=== PATIENT | female | born 1935 | race Caucasian/White ===

== ENCOUNTER 2016-11-01 18:53 | Emergency (ER) | payer OTHER ==
[2016-11-01] MEDS ORDERED: HYDROGEN PEROXIDE 3% ONE (18:59)
--- NOTE | 2016-11-01 19:04 | DR.GENAD ---
HPI - HPI Comment HPI Comment: PATIENT FELL AT HOME AND SUSTAIN LAC TO SCALP AND FOREHEAD. TD UTD. - Complaint/Symptoms Chief Complaint Doctors Comments: FELL, LT SCALP LAC AND RT FOREHEAD LACERATION. NO LOC. - Nurses notes reviewed Nurses Notes Review: Yes - Source History Provided: Patient, Family Member - Mode of Arrival Mode of Arrival: Ambulatory - Timing Came on: Suddenly - Duration Duration: Constant Duration: Hours - Severity Severity: Moderate PMH - PMH Past Medical History: Anxiety, Depression, Dyslipidemia, GERD, Hypertension, Hypothyroidism, Kidney Stones Past Surgical History: Yes Surgical History: Hysterectomy - Family History Family Medical History: Diabetes Mellitus, Cancer, [place], Coronary Artery Disease, Hypertension - Social History Do you use any recreational Drugs:: No ROS - Review of Systems Constitutional: No Symptoms Reported Eyes: No Symptoms Reported ENTM: No Symptoms Reported Respiratoy: No Symptoms Reported Cardiovascular: No Symptoms Reported Gastrointestinal/Abdominal: No Symptoms Reported Genitourinary: No Symptoms Reported Neurological: No Symptoms Reported Musculoskeletal: No Symptoms Reported Integumentary: Wound (RT FOREHEAD 3CM LAC AND LT SCALP, 2CM LAC.) Hematologic/Lymphatic: No Symptoms Reported Endocrine: No Symptoms Reported All Other Systems: Reviewed and Negative PE - Vital Signs Vitals: Temperature 98.6 F Pulse Rate [Left Brachial] 89 Pulse Rate 95 Respiratory Rate 18 Blood Pressure [Right Arm] 157/70 Blood Pressure [Left Arm] 143/66 Blood Pressure 172/74 O2 Sat by Pulse Oximetry 95 - General Limitations: No Limitations General Appearance: Alert - Head Head Exam: Atraumatic (SCALP LAC RT PARIETAL.), Other (RT FOREHEAD LACERATION, ) - Eyes Eye exam: Normal Appearance - ENT ENT Exam: Normal Exam External Ear Exam: Normal External Inspection TM/Canal Exam: Bilateral Normal Nose Exam: Normal Nose Exam Mouth Exam: Normal Inspection Throat Exam: Normal Inspection - Neck Neck Exam: Trachea Midline - Chest Chest Inspection: Symmetric Chest Wall Rise - Respiratory Respiratory Exam: Normal Lung Sounds Bilat Respiratory Exam: Bilateral Clear to Auscultation - Cardiovascular Cardiovascular Exam: Regular Rate, Normal Rhythm, Normal Heart Sounds - Abdominal Exam Abdominal Exam: Normal Bowel Sounds, Soft. negative: Tenderness - Extremities Extremities Exam: Normal Inspection - Back Back Exam: Normal Inspection - Neurologic Neurological Exam: Alert, Oriented X3 - Psychiatric Psychiatric Exam: Normal Affect, Normal Mood - Skin Skin Exam: Normal Color MDM - Additional Information Additional Information Obtained From: Family - Differential Diagnosis Differential Diagnosis: SCALP LACERATION, RIGHT FOREHEAD LACERATION Course - Treatment Treatment: SEE ORDERS - Education/Counseling Education/Counseling: Patient, Family, Education Educated On: Treatment, Diagnosis, Needs for Follow Up Procedures - Laceration/Wound Repair Right Face Wound Length (cm): 3 Wound's Depth, Shape: Linear Wound Explored: clean Betadine Prep?: Yes Anesthesia: 1% Lidocaine Volume Anesthetic (ccs): 3 Wound Debrided: minimal Wound Repaired With: sutures Suture Size/Type: 5:0, [place] Number of Sutures: 7 Layer Closure?: No Sterile Dressing Applied?: Yes Splint Applied?: No Sling Applied?: No Left Head Wound Length (cm): 2 Wound's Depth, Shape: Linear Wound Explored: clean Anesthesia: 1% Lidocaine Volume Anesthetic (ccs): 3 Wound Debrided: minimal Wound Repaired With: sutures Suture Size/Type: 4:0, Ethilion Number of Sutures: 7 Layer Closure?: No Sterile Dressing Applied?: No Splint Applied?: No Sling Applied?: No - Diagnosis Discharge Problem: Forehead laceration Qualifiers: Encounter type: initial encounter Qualified Code(s): S01.81XA - Laceration without foreign body of other part of head, initial encounter Scalp laceration Qualifiers: Encounter type: initial encounter Qualified Code(s): S01.01XA - Laceration without foreign body of scalp, initial encounter - Discharge Plan Disposition: HOME, SELF-CARE Condition: Stable - Follow ups/Referrals Follow ups/Referrals: Mitchel Ventura [Primary Care Provider] - 3 days - Instructions Instructions: Laceration Care, Adult Additional Instructions: RETURN TO ED IF WORSE. SUTURE OUT IN 10 DAYS.
[2016-11-01 19:09] VITALS: BMI 28.3
[2016-11-01] MEDS ORDERED: NEOSPORIN OINT ONE (19:52)
[2016-11-01 19:58] VITALS: BP 157/70
== END 2016-11-01 20:01 | disposition home or self-care (01) ==
LOC: ER 18:59
PROC: 0WQ00ZZ Repair Head, Open Approach (ICD-10-PCS; principal; 2016-11-01)
PROC: 0WQ20ZZ Repair Face, Open Approach (ICD-10-PCS; principal; 2016-11-01)
DX: S01.81XA Laceration without foreign body of other part of head, initial encounter (principal); S01.01XA Laceration without foreign body of scalp, initial encounter; W19.XXXA Unspecified fall, initial encounter; Y92.009 Unspecified place in unspecified non-institutional (private) residence as the place of occurrence of the external cause
CPT/HCPCS: 12001; 12013; 99282

== ENCOUNTER 2017-04-29 02:24 | Emergency (ER) | payer OTHER ==
[2017-04-29 02:42] VITALS: BMI 27.8
--- NOTE | 2017-04-29 03:08 | DR.GENAD ---
HPI - PCP Primary Care Physician: PETE - HPI Comment HPI Comment: HISTORY BELOW. - Complaint/Symptoms Chief Complaint Doctors Comments: FELL AT HOME. LACERATION BACK OF HEAD, NECK PAIN, LEFT SHOULDER PAIN, PELVIC PAIN AND LLE PAIN. NO LOC. PATIENT SAID LAC IN HEAD WAD BLEEDING AT HOME. Chief Complaint:: PATIENT WAS TRYING TO WALK TO BATHROOM, NEXT THING SHE WAS ON THE FLOOR. 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, Hysterectomy, Ortho Surgery Past Surgical History Comment: CATARACT - Family History History of Family Medical Conditions: Yes Family Medical History: Diabetes Mellitus, Cancer, [place], Coronary Artery Disease, Hypertension - Social History Does patient currently use any type of tobacco product: No Have you used tobacco products in the last 12 months: No Type of Tobacco Use: None Does any household member use tobacco: No Alcohol Use: None Do you use any recreational Drugs:: No Lives With: Alone Lives Where: Home - infectious screening In the last 2 months have you had wt loss of >10#?: NO Have you had fever, night sweats or hemotysis?: No Have you traveled outside the country in the last 6 months?: No Isolation: Standard ROS - Review of Systems Constitutional: No Symptoms Reported Eyes: No Symptoms Reported ENTM: No Symptoms Reported Respiratoy: No Symptoms Reported Cardiovascular: No Symptoms Reported Gastrointestinal/Abdominal: No Symptoms Reported Genitourinary: No Symptoms Reported Neurological: Headache, Problems Walking Musculoskeletal: Neck Pain, Shoulder, Pelvis, Leg, Knee Integumentary: Other (3CM LAC BACK OF HEAD.) Hematologic/Lymphatic: No Symptoms Reported Endocrine: No Symptoms Reported All Other Systems: Reviewed and Negative PE - Vital Signs Vitals: Temperature 98.2 F Pulse Rate [Right] 72 Pulse Rate 75 Respiratory Rate 20 Blood Pressure [Right Arm] 143/65 Blood Pressure [Left Arm] 143/66 Blood Pressure 157/69 O2 Sat by Pulse Oximetry 96 - General Limitations: No Limitations General Appearance: Alert - Head Head Exam: Other (3CM LAC BACK OF HEAD.) - Eyes Eye exam: Normal Appearance - ENT ENT Exam: Normal External Ear Exam External Ear Exam: Normal External Inspection TM/Canal Exam: Bilateral Normal Nose Exam: Normal Nose Exam Mouth Exam: Normal Inspection Throat Exam: Normal Inspection - Neck Neck Exam: Tenderness (LOWER POSTERIOT NECK) - Chest Chest Inspection: Symmetric Chest Wall Rise - Respiratory Respiratory Exam: Normal Lung Sounds Bilat Respiratory Exam: Bilateral Clear to Auscultation - Cardiovascular Cardiovascular Exam: Regular Rate, Normal Rhythm, Normal Heart Sounds - Extremities Extremities Exam: Normal Inspection - Back Back Exam: Normal Inspection - Neurologic Neurological Exam: Alert, Oriented X3 - Psychiatric Psychiatric Exam: Normal Affect, Normal Mood - Skin Skin Exam: Normal Color MDM - Additional Information Additional Information Obtained From: Family - Differential Diagnosis Differential Diagnosis: MULTIPLE CONTUSION, SCALP LACERATION, LT SHOULDER SPRAIN , FRACTURE, PELVIC Course - Treatment Treatment: SEE ORDERS - Education/Counseling Education/Counseling: Patient, Family, Education Educated On: Treatment, Diagnosis, Needs for Follow Up ROR - XRAY XRAY Interpreted by: Radiologist XRAY Findings: REPORT DISCUSS WITH PATIENT AND HER FAMILY. Procedures - Laceration/Wound Repair Head Progress: 6 HARMAN APPLIED TO BACK OF SCALP. - Diagnosis Discharge Problem: Neck pain, Pain in pelvis, Acute pain of left lower extremity Scalp laceration Qualifiers: Encounter type: initial encounter Qualified Code(s): S01.01XA - Laceration without foreign body of scalp, initial encounter Sprain of left shoulder Qualifiers: Encounter type: initial encounter Shoulder sprain type: unspecified sprain Qualified Code(s): S43.402A - Unspecified sprain of left shoulder joint, initial encounter Left knee sprain Qualifiers: Encounter type: initial encounter Involved ligament of knee: unspecified ligament Qualified Code(s): S83.92XA - Sprain of unspecified site of left knee, initial encounter - Discharge Plan Disposition: 01 HOME, SELF-CARE Condition: Stable - Follow ups/Referrals Follow ups/Referrals: Mitchel Ventura [Primary Care Provider] - 3 days - Instructions Instructions: Shoulder Sprain, Musculoskeletal Pain, Laceration Care, Adult, [id number], Knee Pain, [id number] Additional Instructions: RETURN TO ED IF WORSE. HARMAN OUT IN 10 DAYS.
--- NOTE | 2017-04-29 04:00 | CT ---
CT head without contrast Indication: Fall with hematoma to the back of the head Technique: Helical CT images of the brain were obtained without IV contrast. Reformatted images in th e coronal and sagittal planes were also generated for review. Comparison: None Findings: There is no intracranial hemorrhage, focal or generalized edema, extra-axial collection or midline shift. There is mild age-appropriate cerebral atrophy with proportional compensatory ventricu lar and sulcal enlargement. Mild periventricular and subcortical white matter microangiopathic diseas e is also noted. The visualized paranasal sinuses and mastoid air cells are clear. There is a small h ematoma of the left posterior parietal scalp. No underlying calvarial fracture is identified. Impression: No acute intracranial abnormality. Reported By:
--- NOTE | 2017-04-29 04:01 | CT ---
CT cervical spine without contrast Indication: Fall with neck pain Technique: Helical CT images of the cervical spine were obtained without IV contrast. Reformatted tari ges in the coronal and sagittal planes were also generated for review. Comparison: None Findings: Vertebral body heights and alignment are normal. No acute fracture or subluxation is identi fied. There is mild multilevel degenerative disc disease and facet arthropathy, most significant at C 5-C6 and C6-C7. There is no prevertebral soft tissue swelling. Visualized upper lungs are clear. Impression: No CT evidence of acute cervical spine injury. Reported By:
--- NOTE | 2017-04-29 04:09 | CT ---
CT pelvis without contrast Indication: Fall with left hip pain Technique: Helical CT images of the pelvis were obtained without IV contrast. Reformatted images in t he coronal and sagittal planes were also generated for review. Comparison: None Findings: The bilateral hips, SI joints, pubic symphysis and imaged lower lumbar spine are intact. No acute fracture or malalignment is identified. Mild degenerative changes of the lower lumbar spine an d pubic symphysis are noted. The bilateral hip joint spaces are well maintained. There is moderate diverticulosis of the sigmoid colon without evidence of acute inflammation. There i s mild calcification of the bilateral iliofemoral systems without aneurysm. A small fat containing le ft inguinal hernia is noted. The remaining unenhanced imaged contents of the lower abdomen and pelvis are grossly unremarkable. Impression: No acute fracture or malalignment. Please refer to above for additional incidental findings. Reported By:
[2017-04-29] MEDS ORDERED: HYDROGEN PEROXIDE 3% ONE (04:10)
[2017-04-29] MEDS ORDERED: HYDROGEN PEROXIDE 3% EXT ONE (04:10)
[2017-04-29] MEDS ORDERED: XYLOCAINE 1 % (PLAIN) ONE (04:11)
--- NOTE | 2017-04-29 04:29 | RAD ---
Left shoulder, three views Indication: Fall with shoulder pain Comparison: 11/19/2013 Findings: No acute fracture or malalignment is identified. There are mild degenerative changes of the glenohumeral joint. The acromiohumeral interval is within normal limits. Soft tissues are unremarkab le. Impression: No acute radiographic abnormality of the left shoulder. Reported By:
--- NOTE | 2017-04-29 04:29 | RAD ---
Left femur, four views Indication: Fall with leg pain Comparison: None Findings: No acute fracture or malalignment of the left femur is identified. Mild degenerative change s of the knee are noted. Surrounding soft tissues are unremarkable. Impression: No acute radiographic abnormality of the left femur. Reported By:
[2017-04-29 04:59] VITALS: BP 143/65
== END 2017-04-29 04:55 | disposition home or self-care (01) ==
LOC: ER 02:24
PROC: 0HQ0XZZ Repair Scalp Skin, External Approach (ICD-10-PCS; principal; 2017-04-29)
DX: S01.01XA Laceration without foreign body of scalp, initial encounter (principal); W19.XXXA Unspecified fall, initial encounter; Y92.009 Unspecified place in unspecified non-institutional (private) residence as the place of occurrence of the external cause; S30.0XXA Contusion of lower back and pelvis, initial encounter; S40.012A Contusion of left shoulder, initial encounter; S80.12XA Contusion of left lower leg, initial encounter; S83.92XA Sprain of unspecified site of left knee, initial encounter; M54.2 Cervicalgia
CPT/HCPCS: 12001; 70450; 72125; 72192; 73030; 73552; 99283; J2001

== ENCOUNTER → 2017-10-18 | Outpatient (CLI) | payer OTHER ==
--- NOTE | 2017-10-18 14:09 | CT ---
HISTORY: Fall Study: CT brain without contrast Comparison: April 29, 2017 Technique: Multiple axial images of the brain were obtained from the skull base to the vertex without administra tion of IV contrast. Findings: No acute intraparenchymal hemorrhage or mass can be identified. No extra-axial fluid collections are seen. No alteration in the attenuation of the brain parenchyma can be identified to suggest acute o r subacute ischemic change. The ventricles, sulci, and cisterns demonstrate an appearance consistent with a [id number] degree of generalized atrophy. Patchy areas decreased attenuation within the periventricular, subcortical, and subinsular white matter suggest changes of chronic small vessel is chemic disease. Remote lacunar infarcts are seen within the region of the right castañeda radiata and baumann binsular white matter. Soft tissue swelling/hematoma is seen overlying the right frontal calvarium. C orrelate clinically. If symptoms or clinical concern persist recommend continued follow-up for furthe r evaluation. IMPRESSION: No acute intracranial process can be identified. Mild to moderate generalized atrophy findings consistent with changes of chronic small vessel ischemi c disease. Soft tissue swelling/hematoma overlying the right frontal calvarium. Correlate clinically. Reported By:
== END ==
LOC: RAD 13:10
PROVIDERS: ATTEND Internal Medicine
DX: S09.90XA Unspecified injury of head, initial encounter (principal); X58.XXXA Exposure to other specified factors, initial encounter; R60.0 Localized edema
CPT/HCPCS: 70450

== ENCOUNTER 2018-04-07 10:01 | Observation (INO) ==
[2018-04-07 10:04] VITALS: BMI 28.3
[2018-04-07 10:27] LABS: BASOPHILS # (AUTO) 0.1 X10^3/uL (0.0-0.1); BASOPHILS % (AUTO) 1.4 % (0.2-1.0); EOSINOPHILS # (AUTO) 0.4 x10^3/uL (0.0-0.2); EOSINOPHILS % (AUTO) 4.8 % (0.9-2.9); HEMATOCRIT 34.2 % (36.0-47.0); HEMOGLOBIN 11.7 g/dL (12.0-16.0); LYMPHOCYTES # (AUTO) 3.1 X10^3/uL (1.3-2.9); LYMPHOCYTES % (AUTO) 42.2 % (21.0-51.0); MEAN CORPUSCULAR HEMOGLOBIN 31.1 pg (27.0-34.0); MEAN CORPUSCULAR HGB CONC 34.2 g/dL (33.0-35.0); MEAN CORPUSCULAR VOLUME 90.9 fL (80.0-100.0); MEAN PLATELET VOLUME 7.2 fL (7.4-11.0); MONOCYTES # (AUTO) 0.5 x10^3/uL (0.3-0.8); MONOCYTES % (AUTO) 6.5 % (0.0-13.0); NEUTROPHILS # (AUTO) 3.3 x10^3/uL (2.2-4.8); NEUTROPHILS % (AUTO) 45.1 % (42.0-75.0); PLATELET COUNT 288 X10^3/uL (150.0-450.0); RED BLOOD COUNT 3.76 X10^6/uL (3.5-5.4); RED CELL DISTRIBUTION WIDTH 13.3 % (11.6-16.5); WHITE BLOOD COUNT 7.4 X10^3/uL (3.6-10.0)
[2018-04-07 10:42] LABS: BLOOD UREA NITROGEN 23 mg/dL (7-18); CALCIUM 8.8 mg/dL (8.5-10.1); CARBON DIOXIDE 28.6 mmol/L (21-32); CHLORIDE 103 mmol/L (98-107); COR NA(FOR HYPERGLY) 139 mmol/L (136-145); CREATININE 1.15 mg/dL (0.55-1.02); SODIUM 138 mmol/L (136-145); TROPONIN I < 0.02 ng/mL (0-1.5); eGFR NON BLACK RACES 48 (>60)
[2018-04-07 10:46] LABS: ALANINE AMINOTRANSFERASE 24 Units/L (12-78); ALBUMIN 3.7 g/dL (3.4-5.0); ALKALINE PHOSPHATASE 55 Units/L (46-116); ASPARTATE AMINO TRANSFERASE 16 Units/L (15-37); CHOL/HDL RATIO 4.1 (0.0-5.0); CHOLESTEROL 148 mg/dL (0-200); CKMB % 1.4 % (<4); CREATINE KINASE 139 Units/L (26-192); HDL CHOLESTEROL 36 mg/dL (40-60); TOTAL PROTEIN 7.5 g/dL (6.4-8.2); TRIGLYCERIDES 223 mg/dL (0-150)
--- NOTE | 2018-04-07 10:48 | DR.GENAD ---
HPI Time Seen Time Seen by Provider: 04/07/18 10:44 PCP Primary Care Physician: PETE Complaint/Symptoms Chief Complaint Doctors Comments: Patient admits to not being able to speak suddenly while going to [employer]. This lasted about 10 minutes. Upon arrival from [place] speech normal. 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 BEGAN HAVING SLURRED SPEECH. UPON ARRIVAL TO ER, PT. STILL WITH SLURRED SPEECH BUT IT HAS IMPROVED SINCE ONSET PER GRANDSON. BILATERAL AND EQUAL HANDGRIPS. PT. HAS AN UN STEADY GAIT. Source History Provided: Patient and Family Member Mode of Arrival Mode of Arrival: Wheelchair Timing Onset of Chief Complaint: 04/07/18 PMH PMH Past Medical History: Yes Past Medical History: Anxiety, Depression, Dyslipidemia, GERD, Hypertension, Hypothyroidism, Kidney Stones and [place] Past Surgical History: Yes Surgical History: UPPER TRIMMER Surgery, Hysterectomy and Ortho Surgery Family History History of Family Medical Conditions: Yes Family Medical History: Diabetes Mellitus, Cancer, [place], Coronary Artery Disease and Hypertension Social History Does patient currently use any type of tobacco product: No Have you used tobacco products in the last 12 months: No Type of Tobacco Use: None Does any household member use tobacco: No Alcohol Use: None Do you use any recreational Drugs:: No Lives With: Alone Lives Where: Home infectious screening In the last 2 months have you had wt loss of >10#?: NO Have you had fever, night sweats or hemotysis?: No Have you traveled outside the country in the last 6 months?: No Isolation: Standard PE Vital Signs Vitals: Temperature 97.8 F Pulse Rate [Apical] 69 Pulse Rate 75 Respiratory Rate 20 Blood Pressure [Right Arm] 131/58 Blood Pressure [Left Arm] 135/64 Blood Pressure 122/79 O2 Sat by Pulse Oximetry 98 General Limitations: No Limitations General Appearance: Alert and In No Apparent Distress Head Head Exam: Normal Inspection, Atraumatic and Normocephalic ENT ENT Exam: Normal Exam, Normal Oropharynx and Normal External Ear Exam External Ear Exam: Normal External Inspection TM/Canal Exam: Bilateral: Normal Nose Exam: Normal Nose Exam and Sinus Tenderness Neck Neck Exam: Normal Inspection and Full ROM Chest Chest Inspection: Normal Inspection Respiratory Respiratory Exam: Normal Lung Sounds Bilat Respiratory Exam: Bilateral: Clear to Auscultation Cardiovascular Cardiovascular Exam: Regular Rate and Normal Rhythm Abdominal Exam Abdominal Exam: Normal Bowel Sounds and Soft Abdominal Tenderness: RUQ, RLQ and LUQ Extremities Extremities Exam: Normal Inspection and Full ROM Back Back Exam: Normal Inspection and Full ROM Neurologic Neurological Exam: Alert, Oriented X3 and CN II-XII Intact Psychiatric Psychiatric Exam: Normal Affect Skin Skin Exam: Warm, Dry and Intact COURSE Consultation Called: 11:00 Consultation Comments: Dr. Castañeda agreed to admit for observation and further evaluation ROR Labs Reviewed Laboratory Results Reviewed?: Yes Result Diagrams: 04/08/18 05:00 04/08/18 05:00 Laboratory: WBC 7.2 X10^3/uL (3.6-10.0) 04/08/18 05:00 RBC 3.76 X10^6/uL (3.5-5.4) 04/08/18 05:00 Hgb 11.7 g/dL (12.0-16.0) L 04/08/18 05:00 Hct 34.3 % (36.0-47.0) L 04/08/18 05:00 MCV 91.2 fL (80.0-100.0) 04/08/18 05:00 MCH 31.0 pg (27.0-34.0) 04/08/18 05:00 MCHC 34.0 g/dL (33.0-35.0) 04/08/18 05:00 RDW 13.5 % (11.6-16.5) 04/08/18 05:00 Plt Count 269 X10^3/uL (150.0-450.0) 04/08/18 05:00 MPV 7.1 fL (7.4-11.0) L 04/08/18 05:00 Neut % (Auto) 42.2 % (42.0-75.0) 04/08/18 05:00 Lymph % (Auto) 44.3 % (21.0-51.0) 04/08/18 05:00 Stanley % (Auto) 7.4 % (0.0-13.0) 04/08/18 05:00 Eos % (Auto) 4.9 % (0.9-2.9) H 04/08/18 05:00 Baso % (Auto) 1.2 % (0.2-1.0) H 04/08/18 05:00 Neut # (Auto) 3.0 x10^3/uL (2.2-4.8) 04/08/18 05:00 Lymph # (Auto) 3.2 X10^3/uL (1.3-2.9) H 04/08/18 05:00 Stanley # (Auto) 0.5 x10^3/uL (0.3-0.8) 04/08/18 05:00 Eos # (Auto) 0.4 x10^3/uL (0.0-0.2) H 04/08/18 05:00 Baso # (Auto) 0.1 X10^3/uL (0.0-0.1) 04/08/18 05:00 Absolute Nucleated RBC 0.0 /100WBC 04/08/18 05:00 INR Target Range - 04/07/18 10:17 INR 0.95 (0.8-1.3) 04/07/18 10:17 APTT 26.7 SECONDS (22.9-36.5) 04/07/18 10:17 PTT Comment - 04/07/18 10:17 Fibrinogen 338 mg/dL (239-489) 04/07/18 10:17 Sodium 141 mmol/L (136-145) 04/08/18 05:00 Corrected Sodium TNP 04/08/18 05:00 Potassium 3.8 mmol/L (3.5-5.1) 04/08/18 05:00 Chloride 105 mmol/L (98-107) 04/08/18 05:00 Carbon Dioxide 28.5 mmol/L (21-32) 04/08/18 05:00 BUN 17 mg/dL (7-18) 04/08/18 05:00 Creatinine 0.96 mg/dL (0.55-1.02) 04/08/18 05:00 Est GFR (MDRD) Af Amer > 60 (>60) 04/08/18 05:00 Est GFR (MDRD) Non-Af 59 (>60) 04/08/18 05:00 Glucose 93 mg/dL (65-99) 04/08/18 05:00 Calcium 8.5 mg/dL (8.5-10.1) 04/08/18 05:00 Corrected Calcium TNP 04/08/18 05:00 Total Bilirubin 0.30 mg/dL (0.2-1.0) 04/08/18 05:00 AST 15 Units/L (15-37) 04/08/18 05:00 ALT 22 Units/L (12-78) 04/08/18 05:00 Alkaline Phosphatase 52 Units/L (46-116) 04/08/18 05:00 Creatine Kinase 132 Units/L (26-192) 04/08/18 05:00 CK-MB (CK-2) 1.6 ng/mL (0-4.0) 04/08/18 05:00 CK/CKMB % Calc 1.2 % (<4) 04/08/18 05:00 Troponin I < 0.02 ng/mL (0-1.5) 04/08/18 05:00 Total Protein 7.5 g/dL (6.4-8.2) 04/08/18 05:00 Albumin 3.6 g/dL (3.4-5.0) 04/08/18 05:00 Globulin 3.9 g/dL (2.5-4.5) 04/08/18 05:00 Albumin/Globulin Ratio 0.9 Ratio (1.1-2.1) L 04/08/18 05:00 Triglycerides 223 mg/dL (0-150) H 04/07/18 10:17 Cholesterol 148 mg/dL (0-200) 04/07/18 10:17 LDL Cholesterol, Calc 67 mg/dL (0-100) 04/07/18 10:17 HDL Cholesterol 36 mg/dL (40-60) L 04/07/18 10:17 Cholesterol/HDL Ratio 4.1 (0.0-5.0) 04/07/18 10:17 Other Results Comments: No acute intracranial pathology. If clinically concerned for acute ischemia/infarction, MRI brain is more sensitive. Diagnosis Discharge Problem: TIA (transient ischemic attack)
[2018-04-07] MEDS: NS 1000 ML 1,000 ML IV SCH (12:53)
[2018-04-07 16:53] LABS: CKMB % 1.6 % (<4); CREATINE KINASE 134 Units/L (26-192); CREATINE KINASE MB 2.1 ng/mL (0-4.0); TROPONIN I < 0.02 ng/mL (0-1.5)
[2018-04-07] MEDS: ZyrTEC TAB 10 MG PO SCH (20:27)
[2018-04-07] MEDS: GLYBURIDE METFORMIN PO SCH (20:38)
[2018-04-07] MEDS ORDERED: LIPITOR TAB 20 MG PO SCH (21:00)
[2018-04-07 22:40] LABS: CKMB % 1.3 % (<4); CREATINE KINASE 125 Units/L (26-192); CREATINE KINASE MB 1.6 ng/mL (0-4.0); TROPONIN I < 0.02 ng/mL (0-1.5)
[2018-04-08] MEDS: NS 1000 ML 1,000 ML IV SCH ×2 (01:57→16:04)
[2018-04-08 05:19] LABS: BASOPHILS # (AUTO) 0.1 X10^3/uL (0.0-0.1); BASOPHILS % (AUTO) 1.2 % (0.2-1.0); EOSINOPHILS # (AUTO) 0.4 x10^3/uL (0.0-0.2); EOSINOPHILS % (AUTO) 4.9 % (0.9-2.9); HEMATOCRIT 34.3 % (36.0-47.0); HEMOGLOBIN 11.7 g/dL (12.0-16.0); LYMPHOCYTES # (AUTO) 3.2 X10^3/uL (1.3-2.9); LYMPHOCYTES % (AUTO) 44.3 % (21.0-51.0); MEAN CORPUSCULAR VOLUME 91.2 fL (80.0-100.0); MEAN PLATELET VOLUME 7.1 fL (7.4-11.0); MONOCYTES # (AUTO) 0.5 x10^3/uL (0.3-0.8); MONOCYTES % (AUTO) 7.4 % (0.0-13.0); NEUTROPHILS % (AUTO) 42.2 % (42.0-75.0); PLATELET COUNT 269 X10^3/uL (150.0-450.0); RED BLOOD COUNT 3.76 X10^6/uL (3.5-5.4); RED CELL DISTRIBUTION WIDTH 13.5 % (11.6-16.5); WHITE BLOOD COUNT 7.2 X10^3/uL (3.6-10.0)
[2018-04-08 05:38] LABS: ALANINE AMINOTRANSFERASE 22 Units/L (12-78); ALBUMIN 3.6 g/dL (3.4-5.0); ALKALINE PHOSPHATASE 52 Units/L (46-116); ASPARTATE AMINO TRANSFERASE 15 Units/L (15-37); BLOOD UREA NITROGEN 17 mg/dL (7-18); CALCIUM 8.5 mg/dL (8.5-10.1); CARBON DIOXIDE 28.5 mmol/L (21-32); CHLORIDE 105 mmol/L (98-107); CKMB % 1.2 % (<4); CREATINE KINASE 132 Units/L (26-192); CREATINE KINASE MB 1.6 ng/mL (0-4.0); CREATININE 0.96 mg/dL (0.55-1.02); SODIUM 141 mmol/L (136-145); TOTAL PROTEIN 7.5 g/dL (6.4-8.2); TROPONIN I < 0.02 ng/mL (0-1.5); eGFR NON BLACK RACES 59 (>60)
[2018-04-08] MEDS ORDERED: [UNRECOGNIZED DRUG - OTHER] PO SCH (09:00)
[2018-04-08] MEDS: EFFEXOR XR 75 MG CAP PO SCH (09:01)
[2018-04-08] MEDS: SINGULAIR TAB 10 MG PO SCH ×2 (09:01→09:03)
[2018-04-08] MEDS: HYZAAR 50/12.5 MG PO SCH ×2 (09:01→09:03)
[2018-04-08] MEDS: NexIUM PO SCH (09:01)
[2018-04-08] MEDS: TAB-A-VITE PO SCH (09:01)
[2018-04-08] MEDS: PROGESTERONE MICRONIZED 200 MG PO SCH (09:02)
[2018-04-08] MEDS: PLAVIX PO SCH (09:02)
--- NOTE | 2018-04-08 09:32 | DR.H&P ---
H&P - History & Physical for Day of: H&P Date: 04/07/18 - Chief Complaint Chief Complaint: slurred speech - History of Present Illness History of Present Illness: 82 W[facility] ER ADMISSION AFTER PRESENTING WITH CO NEW ONSET OF SLURRED SPEECH. PTS DAUGHTER STATES SHE SPOKE WITH PATIENT AT 7:30 AM AND SHE WAS TALKING NORMAL. PT WAS WITH GRANDSON AROUND 9:30 AND HAD SUDDEN ONSET OF SLURRED SPEECH. PT CONTINUES WITH "WORDS NOT COMING OUT RIGHT" AFTER ARRIVAL TO ED. PT HAS PMH OF HTN, OA, HYPERLIPIDEMIA, GERD, HYPOTHYROIDISM. PT STATES HAS NO HISTORY OF CVD OR CAD. CT HEAD IN ER WITHOUT ACUTE FINDINGS. 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, Hysterectomy, Ortho Surgery Additional Surgical History: Hemorrhoidectomy X 2, Tubal, Spinal Stimulator, Carpal Tunnel - Family History Family Medical History: Diabetes Mellitus, Cancer, [place], Coronary Artery Disease, Hypertension - Social History Does patient currently use any type of tobacco product: No Have you used tobacco products in the last 12 months: No Type of Tobacco Use: None Does any household member use tobacco: No Alcohol Use: None Drug Use: Prescription Drugs - Medications Home Medications: codeine Allergy (Verified 04/07/18 10:02) Penicillins Allergy (Verified 04/07/18 10:02) CONTINUE taking the following medications alprazolam 1 mg PO HS PRN 04/07/18 [History] cetirizine 10 mg PO HS 04/07/18 [History] glyburide-metformin 1 tab PO BID 04/07/18 [History] losartan-hydrochlorothiazide 1 tab PO QDAY 04/07/18 [History] montelukast 10 mg PO QDAY 04/07/18 [History] progesterone micronized 200 mg PO DAILY 04/07/18 [History] - Review of Systems Constitutional: Other (CHANGE IN SPEECH) Eyes: No Symptoms Reported ENT: No Symptoms Reported Respiratory: No Symptoms Reported Cardiovascular: No Symptoms Reported Gastrointestinal: No Symptoms Reported Genitourinary: No Symptoms Reported Musculoskeletal: No Symptoms Reported Skin: No Symptoms Reported Neurological: Weakness, Change in Speech - Physical Exam Vital Signs: Temperature 97.8 F Pulse Rate [Apical] 69 Pulse Rate 75 Respiratory Rate 20 Blood Pressure [Right Arm] 131/58 Blood Pressure [Left Arm] 135/64 Blood Pressure 122/79 O2 Sat by Pulse Oximetry 98 Oriented: Normal Eyes: Normal Ear: Normal Nose: Normal Throat: Normal Respiratory: RLL Diminished, LLL Diminished Cardiovascular: Normal : Normal Auscultation: Bowel Sounds: Normal Palpation: Normal Tenderness: Normal Skin: Normal Musculoskeletal: Normal Mood Description: Calm Affect: Anxious Speech Pattern: Appropriate, Delayed, Slurred (MILDLY) - Assessment/Plan (1) TIA (transient ischemic attack) Status: Acute Plan: ADMIT, SERIAL CE AND EKG. CXR ON ADMISSION, CT HEAD. MRI Q AM IF NO CONTRAINDICATION. CTA CAROTID, BP AND LIPID CONTROL. VERIFY HOME MEDS (2) Slurred speech Status: Acute (3) Essential hypertension Status: Chronic (4) Hypothyroidism Status: Chronic (5) GERD (gastroesophageal reflux disease) Status: Chronic - Allergies Allergies/Adverse Reactions: Allergies Allergy/AdvReac Type Severity Reaction Status Date / Time codeine Allergy Verified 04/07/18 10:02 Penicillins Allergy Verified 04/07/18 10:02
--- NOTE | 2018-04-08 11:34 | PCM.PROG ---
Progress Note - Progress Note for Day of Date of Exam: 04/08/18 - Subjective Subjective: WAS ADMITTED FOR COMPLAINTS OF SLURRED SPEECH AND WEAKNESS. TODAY, SHE IS ALERT AND ORIENTED, LYING IN BED ON MORNING ROUNDS. SHE CONTINUES WITH COMPLAINTS OF GENERALIZED WEAKNESS. ON EXAMINATION, PUPILS PERRLA. HEART IS REGULAR IN RATE AND RHYTHM. BILATERAL LUNGS ARE NOTED WITH DIMINISHED LUNG SOUNDS THROUGHOUT. ABDOMEN IS ROUND, SOFT, AND NON-TENDER WITH NORMAL BOWEL SOUNDS NOTED IN ALL QUADRANTS. EQUAL HAND INFORMATION CLERK NOTED WITH 4/5 POWER. HER VITALS THIS MORNING ARE 97.5-72-20-97%-158/70. LABS WERE OBTAINED. ABNORMAL LAB VALUES INCLUDE THE FOLLOWING: HGB 11.7, HCT 34.3. CARDIAC ENZYMES HAVE BEEN WITHIN NORMAL LIMITS. MOST RECENT EKG REVEALS SINUS RHYTHM WITH HR 73. A BRAIN CT WAS OBTAINED ON ADMISSION AND REVEALED NO ACUTE INTRACRANIAL PATHOLOGY. CAROTID DOPPLER OBTAINED AND REVEALED NO EVIDENCE FOR SIGNIFICANT STENOSIS OR PLAQUE FORMATION. SHE IS CURRENTLY ON PLAVIX 75MG PO DAILY AND ATORVASTATIN 20MG PO HS. TODAY, WE WILL DISCONTINUE THE ATORVASTATIN AND START ROSUVASTATIN 40MG PO HS. OTHERWISE, WE WILL CONTINUE WITH CURRENT PLAN OF CARE AND CONTINUE TO MONITOR PATIENT. WE WILL FOLLOW UP WITH AM LABS AND CONTINUE TO MONITOR PATIENT. - Past Medical Family Social History Past Med/Fam/Surg Hx: No changes since H&P Allergies: Allergies codeine Allergy (Verified 04/07/18 10:02) Penicillins Allergy (Verified 04/07/18 10:02) - Review of Systems ROS: No change since H&P - Vital Signs and I&O's Vital Signs: Temperature 97.5 F Pulse Rate [Right Brachial] 72 Pulse Rate [Apical] 69 Pulse Rate 75 Respiratory Rate 20 Blood Pressure [Right Arm] 158/70 Blood Pressure [Left Arm] 135/64 Blood Pressure 122/79 O2 Sat by Pulse Oximetry 97 Intake and Output: Intake & Output 04/05/18 04/06/18 04/07/18 04/08/18 11:59 11:59 11:59 11:59 Intake Total 1780 / 1780 Output Total 3100 / 3100 Balance -1320 / -1320 - Physical Exam Oriented: Normal Eyes: Normal Ear: Normal Nose: Normal Throat: Normal Respiratory: Generalized, Diminished Cardiovascular: Normal : Normal Auscultation: Bowel Sounds: Normal Palpation: Normal Tenderness: Normal Skin: Normal Musculoskeletal: Normal Mood Description: Calm Affect: Anxious Speech Pattern: Appropriate, Delayed, Slurred (MILDLY) - Laboratory and Diagnostics Result Diagrams: 04/08/18 05:00 04/08/18 05:00 Labs: Laboratory WBC 7.2 X10^3/uL (3.6-10.0) 04/08/18 05:00 RBC 3.76 X10^6/uL (3.5-5.4) 04/08/18 05:00 Hgb 11.7 g/dL (12.0-16.0) L 04/08/18 05:00 Hct 34.3 % (36.0-47.0) L 04/08/18 05:00 MCV 91.2 fL (80.0-100.0) 04/08/18 05:00 MCH 31.0 pg (27.0-34.0) 04/08/18 05:00 MCHC 34.0 g/dL (33.0-35.0) 04/08/18 05:00 RDW 13.5 % (11.6-16.5) 04/08/18 05:00 Plt Count 269 X10^3/uL (150.0-450.0) 04/08/18 05:00 MPV 7.1 fL (7.4-11.0) L 04/08/18 05:00 Neut % (Auto) 42.2 % (42.0-75.0) 04/08/18 05:00 Lymph % (Auto) 44.3 % (21.0-51.0) 04/08/18 05:00 [place] % (Auto) 7.4 % (0.0-13.0) 04/08/18 05:00 Eos % (Auto) 4.9 % (0.9-2.9) H 04/08/18 05:00 Baso % (Auto) 1.2 % (0.2-1.0) H 04/08/18 05:00 Neut # (Auto) 3.0 x10^3/uL (2.2-4.8) 04/08/18 05:00 Lymph # (Auto) 3.2 X10^3/uL (1.3-2.9) H 04/08/18 05:00 [place] # (Auto) 0.5 x10^3/uL (0.3-0.8) 04/08/18 05:00 Eos # (Auto) 0.4 x10^3/uL (0.0-0.2) H 04/08/18 05:00 Baso # (Auto) 0.1 X10^3/uL (0.0-0.1) 04/08/18 05:00 Absolute Nucleated RBC 0.0 /100WBC 04/08/18 05:00 INR Target Range - 04/07/18 10:17 INR 0.95 (0.8-1.3) 04/07/18 10:17 APTT 26.7 SECONDS (22.9-36.5) 04/07/18 10:17 PTT Comment - 04/07/18 10: Fibrinogen 338 mg/dL (239-489) 04/07/18 10:17 Sodium 141 mmol/L (136-145) 04/08/18 05:00 Corrected Sodium TNP 04/08/18 05:00 Potassium 3.8 mmol/L (3.5-5.1) 04/08/18 05:00 Chloride 105 mmol/L (98-107) 04/08/18 05:00 Carbon Dioxide 28.5 mmol/L (21-32) 04/08/18 05:00 BUN 17 mg/dL (7-18) 04/08/18 05:00 Creatinine 0.96 mg/dL (0.55-1.02) 04/08/18 05:00 Est GFR (MDRD) Af Amer > 60 (>60) 04/08/18 05:00 Est GFR (MDRD) Non-Af 59 (>60) 04/08/18 05:00 Glucose 93 mg/dL (65-99) 04/08/18 05:00 Calcium 8.5 mg/dL (8.5-10.1) 04/08/18 05:00 Corrected Calcium TNP 04/08/18 05:00 Total Bilirubin 0.30 mg/dL (0.2-1.0) 04/08/18 05:00 AST 15 Units/L (15-37) 04/08/18 05:00 ALT 22 Units/L (12-78) 04/08/18 05:00 Alkaline Phosphatase 52 Units/L (46-116) 04/08/18 05:00 Creatine Kinase 132 Units/L (26-192) 04/08/18 05:00 CK-MB (CK-2) 1.6 ng/mL (0-4.0) 04/08/18 05:00 CK/CKMB % Calc 1.2 % (<4) 04/08/18 05:00 Troponin I < 0.02 ng/mL (0-1.5) 04/08/18 05:00 Total Protein 7.5 g/dL (6.4-8.2) 04/08/18 05:00 Albumin 3.6 g/dL (3.4-5.0) 04/08/18 05:00 Globulin 3.9 g/dL (2.5-4.5) 04/08/18 05:00 Albumin/Globulin Ratio 0.9 Ratio (1.1-2.1) L 04/08/18 05:00 Triglycerides 223 mg/dL (0-150) H 04/07/18 10:17 Cholesterol 148 mg/dL (0-200) 04/07/18 10:17 LDL Cholesterol, Calc 67 mg/dL (0-100) 04/07/18 10:17 HDL Cholesterol 36 mg/dL (40-60) L 04/07/18 10:17 Cholesterol/HDL Ratio 4.1 (0.0-5.0) 04/07/18 10:17 - Plan (1) TIA (transient ischemic attack) Status: Acute Plan: BP AND LIPID CONTROL, CONTINUE TO MONITOR (2) Generalized weakness Status: Acute (3) Slurred speech Status: Acute
[2018-04-08] MEDS: GLYBURIDE METFORMIN PO SCH ×2 (11:50→21:04)
[2018-04-08] MEDS ORDERED: CRESTOR TAB 10 MG PO SCH (21:00)
[2018-04-08] MEDS: ZyrTEC TAB 10 MG PO SCH (21:04)
[2018-04-09] MEDS: NS 1000 ML 1,000 ML IV SCH (04:10)
[2018-04-09 05:09] LABS: BASOPHILS # (AUTO) 0.1 X10^3/uL (0.0-0.1); BASOPHILS % (AUTO) 1.1 % (0.2-1.0); EOSINOPHILS # (AUTO) 0.4 x10^3/uL (0.0-0.2); EOSINOPHILS % (AUTO) 5.3 % (0.9-2.9); HEMATOCRIT 32.4 % (36.0-47.0); HEMOGLOBIN 10.9 g/dL (12.0-16.0); LYMPHOCYTES # (AUTO) 3.1 X10^3/uL (1.3-2.9); LYMPHOCYTES % (AUTO) 41.6 % (21.0-51.0); MEAN CORPUSCULAR HEMOGLOBIN 30.9 pg (27.0-34.0); MEAN CORPUSCULAR HGB CONC 33.7 g/dL (33.0-35.0); MEAN CORPUSCULAR VOLUME 91.7 fL (80.0-100.0); MEAN PLATELET VOLUME 7.1 fL (7.4-11.0); MONOCYTES # (AUTO) 0.6 x10^3/uL (0.3-0.8); MONOCYTES % (AUTO) 7.7 % (0.0-13.0); NEUTROPHILS # (AUTO) 3.3 x10^3/uL (2.2-4.8); NEUTROPHILS % (AUTO) 44.3 % (42.0-75.0); PLATELET COUNT 267 X10^3/uL (150.0-450.0); RED BLOOD COUNT 3.53 X10^6/uL (3.5-5.4); RED CELL DISTRIBUTION WIDTH 13.4 % (11.6-16.5); WHITE BLOOD COUNT 7.5 X10^3/uL (3.6-10.0)
[2018-04-09 05:16] LABS: ALANINE AMINOTRANSFERASE 22 Units/L (12-78); ALBUMIN 3.2 g/dL (3.4-5.0); ALKALINE PHOSPHATASE 52 Units/L (46-116); ASPARTATE AMINO TRANSFERASE 16 Units/L (15-37); BLOOD UREA NITROGEN 13 mg/dL (7-18); CALCIUM 8.3 mg/dL (8.5-10.1); CARBON DIOXIDE 30.9 mmol/L (21-32); CHLORIDE 108 mmol/L (98-107); COR CA(FOR HYPOALB) 8.9 mg/dL (8.5-10.1); CREATININE 0.89 mg/dL (0.55-1.02); SODIUM 144 mmol/L (136-145); TOTAL PROTEIN 6.9 g/dL (6.4-8.2); eGFR NON BLACK RACES > 60 (>60)
[2018-04-09 07:51] VITALS: BP 160/69
[2018-04-09] MEDS: SINGULAIR TAB 10 MG PO SCH (08:17)
[2018-04-09] MEDS: EFFEXOR XR 75 MG CAP PO SCH (08:17)
[2018-04-09] MEDS: TAB-A-VITE PO SCH (08:17)
[2018-04-09] MEDS: NexIUM PO SCH (08:17)
[2018-04-09] MEDS: HYZAAR 50/12.5 MG PO SCH (08:17)
[2018-04-09] MEDS: PLAVIX PO SCH (08:17)
[2018-04-09] MEDS: GLYBURIDE METFORMIN PO SCH (08:18)
[2018-04-09] MEDS: PROGESTERONE MICRONIZED 200 MG PO SCH (08:22)
--- NOTE | 2018-05-17 02:59 | DR.CARTERD ---
- Discharge Summary for: Discharge Summary for Date of:: 04/09/18 - Admission Date Date of Admission: 04/07/18 - Admission Diagnoses Admission Diagnosis: (1) TIA (transient ischemic attack) (2) Slurred speech (3) Essential hypertension (4) Hypothyroidism (5) GERD (gastroesophageal reflux disease) - Discharge Date Discharge Date: 04/09/18 - Discharge Diagnoses Discharge Diagnosis: (1) TIA (transient ischemic attack) (2) Generalized weakness (3) Slurred speech - Hospital Course Hospital Course: DAY ONE, PATIENT IS AN 82 YEAR OLD WHITE FEMALE WHO WAS AN ER ADMISSION AFTER PRESENTING WITH COMPLAINTS OF NEW ONSET OF SLURRED SPEECH. PTS DAUGHTER STATED SHE SPOKE WITH PATIENT AT 7:30 AM AND SHE WAS TALKING NORMAL. PT WAS WITH GRANDSON AROUND 9:30 AND HAD SUDDEN ONSET OF SLURRED SPEECH. PT CONTINUED WITH "WORDS NOT COMING OUT RIGHT" AFTER ARRIVAL TO ED. PT HAS PMH OF HTN, OA, HYPERLIPIDEMIA, GERD, HYPOTHYROIDISM. PT STATED SHE HAS NO HISTORY OF CVD OR CAD. CT HEAD IN ER WITHOUT ACUTE FINDINGS. PT ADMITTED FOR OBSERVATION R/O TIA VS CVA. WE CONTINUED TO MONITOR. DAY TWO, SHE WAS ALERT AND ORIENTED, LYING IN BED ON MORNING ROUNDS. SHE CONTINUED WITH COMPLAINTS OF GENERALIZED WEAKNESS. ON EXAMINATION, PUPILS PERRLA. HEART WAS REGULAR IN RATE AND RHYTHM. BILATERAL LUNGS WERE NOTED WITH DIMINISHED LUNG SOUNDS THROUGHOUT. ABDOMEN WAS ROUND, SOFT, AND NON-TENDER WITH NORMAL BOWEL SOUNDS NOTED IN ALL QUADRANTS. EQUAL HAND BENCH CHEMIST NOTED WITH 4/5 POWER. HER VITALS THIS MORNING WERE 97.5-72-20-97%-158/70. LABS WERE OBTAINED. ABNORMAL LAB VALUES INCLUDED THE FOLLOWING: HGB 11.7, HCT 34.3. CARDIAC ENZYMES HAVE BEEN WITHIN NORMAL LIMITS. MOST RECENT EKG REVEALED SINUS RHYTHM WITH HR 73. A BRAIN CT WAS OBTAINED ON ADMISSION AND REVEALED NO ACUTE INTRACRANIAL PATHOLOGY. CAROTID DOPPLER OBTAINED AND REVEALED NO EVIDENCE FOR SIGNIFICANT STENOSIS OR PLAQUE FORMATION. SHE WAS ON PLAVIX 75MG PO DAILY AND ATORVASTATIN 20MG PO HS. TODAY, WE ISCONTINUED THE ATORVASTATIN AND START ROSUVASTATIN 40MG PO HS. WE CONTINUED WITH CURRENT PLAN OF CARE AND CONTINUED TO MONITOR PATIENT. WE FOLLOWED UP WITH AM LABS AND CONTINUED TO MONITOR PATIENT. DAY THREE, CONDITION HAS IMPROVED SIGNIFICANTLY. PATIENT SITTING UP IN BED ALERT AND ORIENTED. ZERO SIGNS AND SYMPTOMS OF ACUTE DISTRESS DURING ROUNDS. LABS ARE WITHIN MORMAL RANGE FOR PATIENT. VITALS ARE STABLE. WE PLANNED FOR DISCHARGE. INSTRUCTIONS FOR MEDICATIONS AND FOLLOW UP WERE DISCUSSED WITH PATIENT AND FAMILY, BOTH VOICED UNDERSTANDING. PATIENT DISCHARGED HOME IN STABLE CONDITION WITH FAMILY. - Discharge Medications Discharge Medications: Home Medication List alprazolam 1 mg PO HS PRN 04/07/18 [History] cetirizine 10 mg PO HS 04/07/18 [History] glyburide-metformin 1 tab PO BID 04/07/18 [History] losartan-hydrochlorothiazide 1 tab PO QDAY 04/07/18 [History] montelukast 10 mg PO QDAY 04/07/18 [History] progesterone micronized 200 mg PO DAILY 04/07/18 [History] amlodipine [Norvasc] 5 mg PO QDAY #30 tab 04/09/18 [Rx] rmjhliixpo-ngmnmehwdveup-kpgy [Fioricet] 1 cap PO Q4H PRN #30 cap 04/09/18 [Rx] fluticasone [Flonase Allergy Relief] 2 spray INTRANASAL QDAY #1 bottle 04/09/18 [Rx] rosuvastatin 40 mg PO HS #30 tab 04/09/18 [Rx] Prescriptions: amlodipine [Norvasc] Mitchel Ventura [id number] [Fioricet] Mitchel Ventura fluticasone [Flonase Allergy Relief] Mitchel Ventura rosuvastatin Mitchel Ventura Ambulatory Orders Folic Acid-Vitamin B6-Vitamin [Fabb] 1 tab PO DAILY 11/17/13 esomeprazole magnesium [Nexium] 40 mg PO DAILY 11/17/13 venlafaxine 75 mg PO DAILY 11/17/13 aspirin 325 mg PO DAILY 04/26/18 cholecalciferol (vitamin D3) [Vitamin D3] 1 tab PO DAILY 04/26/18 levothyroxine 88 mcg PO QDAY 04/26/18 gwgkmggh-gyz-rzsm-FA-lutein [Centrum Silver Women] 1 tab PO DAILY 04/26/18 prasterone (dhea) [DHEA] 50 mg PO DAILY 04/26/18 clopidogrel [Plavix] 75 mg PO QDAY #30 tab 04/27/18 - Discharge Disposition Discharge Disposition: PATIENT TO FOLLOW UP IN OUR OFFICE IN ONE WEEK.
== END 2018-04-09 12:00 | disposition home or self-care (01) ==
LOC: ER 10:01 → MED/SURG 10:01
PROVIDERS: ADMIT Internal Medicine; ATTEND Internal Medicine
DX: G45.8 Other transient cerebral ischemic attacks and related syndromes; Z79.899 Other long term (current) drug therapy; R41.82 Altered mental status, unspecified; F41.8 Other specified anxiety disorders; R94.4 Abnormal results of kidney function studies; I10 Essential (primary) hypertension; K21.9 Gastro-esophageal reflux disease without esophagitis; F32.89 Other specified depressive episodes; R47.81 Slurred speech; E03.8 Other specified hypothyroidism; M19.90 Unspecified osteoarthritis, unspecified site; R26.89 Other abnormalities of gait and mobility; Z79.01 Long term (current) use of anticoagulants; E78.2 Mixed hyperlipidemia
CPT/HCPCS: 36415; 70450; 71010; 71045; 80053; 80061; 82550; 82553; 84484; 85025; 85384; 85610; 85730; 92523; 93005; 93880; 94760; 96365; 96367; 97161; 97165; 99218; 99284; A4216; A4222; G0378; J7030

== ENCOUNTER 2018-04-26 12:47 | Observation (INO) ==
[2018-04-26 12:53] VITALS: BMI 29.9
--- NOTE | 2018-04-26 13:10 | CT ---
Examination: CT of the head. Clinical history: Slurred speech, stroke-like symptoms. Technique: Multiple axial images were obtained from the skull base to the vertex. Dose reduction techniques including automated exposure control (AEC) and adjustment of mA and kV were utilized. Comparison: 04/07/2018. Findings: Nonspecific periventricular white matter changes are noted, likely due to small vessel ischemic disease. There is no intra-, or extra-axial hemorrhage, acute infarct or mass lesion noted. There is prominence of the CSF spaces consistent with age related cerebral atrophy. The ventricles are symmetric about the midline, with no midline shift or mass effect noted. The posterior fossa, brain stem and orbital regions are within normal limits. Atherosclerotic calcifications are seen associated with the internal carotid arteries bilaterally and the left vertebral artery. Mild mucosal thickening is seen associated with the right sphenoid sinus, consistent with inflammatory sinus disease. No additional bony or soft tissue abnormality is noted. Impression: 1. No acute infarct or hemorrhage. 2. Age-related cerebral atrophy. 3. Nonspecific periventricular white matter changes are noted, likely due to small vessel ischemic disease. Reported By:
[2018-04-26 13:24] LABS: BASOPHILS # (AUTO) 0.1 X10^3/uL (0.0-0.1); BASOPHILS % (AUTO) 1.3 % (0.2-1.0); EOSINOPHILS # (AUTO) 0.3 x10^3/uL (0.0-0.2); EOSINOPHILS % (AUTO) 3.8 % (0.9-2.9); HEMATOCRIT 34.4 % (36.0-47.0); HEMOGLOBIN 11.7 g/dL (12.0-16.0); LYMPHOCYTES # (AUTO) 2.6 X10^3/uL (1.3-2.9); LYMPHOCYTES % (AUTO) 32.7 % (21.0-51.0); MEAN CORPUSCULAR HEMOGLOBIN 30.9 pg (27.0-34.0); MEAN CORPUSCULAR HGB CONC 33.9 g/dL (33.0-35.0); MEAN CORPUSCULAR VOLUME 91.1 fL (80.0-100.0); MEAN PLATELET VOLUME 7.2 fL (7.4-11.0); MONOCYTES # (AUTO) 0.5 x10^3/uL (0.3-0.8); MONOCYTES % (AUTO) 5.8 % (0.0-13.0); NEUTROPHILS # (AUTO) 4.5 x10^3/uL (2.2-4.8); NEUTROPHILS % (AUTO) 56.4 % (42.0-75.0); PLATELET COUNT 301 X10^3/uL (150.0-450.0); RED BLOOD COUNT 3.77 X10^6/uL (3.5-5.4); RED CELL DISTRIBUTION WIDTH 13.7 % (11.6-16.5); WHITE BLOOD COUNT 8.1 X10^3/uL (3.6-10.0)
[2018-04-26 13:33] LABS: ALANINE AMINOTRANSFERASE 26 Units/L (12-78); ALBUMIN 3.7 g/dL (3.4-5.0); ALKALINE PHOSPHATASE 57 Units/L (46-116); ASPARTATE AMINO TRANSFERASE 20 Units/L (15-37); BLOOD UREA NITROGEN 17 mg/dL (7-18); CALCIUM 8.7 mg/dL (8.5-10.1); CHLORIDE 104 mmol/L (98-107); COR NA(FOR HYPERGLY) 141 mmol/L (136-145); CREATININE 1.02 mg/dL (0.55-1.02); SODIUM 139 mmol/L (136-145); TOTAL PROTEIN 7.6 g/dL (6.4-8.2); eGFR NON BLACK RACES 55 (>60)
[2018-04-26] MEDS ORDERED: NS 1000 ML 1,000 ML ONE (16:14)
[2018-04-26] MEDS: NS 1000 ML 1,000 ML IV SCH (16:26)
[2018-04-27 05:40] LABS: BASOPHILS % (AUTO) 0.6 % (0.2-1.0); EOSINOPHILS # (AUTO) 0.3 x10^3/uL (0.0-0.2); EOSINOPHILS % (AUTO) 3.8 % (0.9-2.9); HEMATOCRIT 33.8 % (36.0-47.0); HEMOGLOBIN 11.5 g/dL (12.0-16.0); LYMPHOCYTES # (AUTO) 3.3 X10^3/uL (1.3-2.9); LYMPHOCYTES % (AUTO) 44.9 % (21.0-51.0); MEAN CORPUSCULAR HEMOGLOBIN 31.1 pg (27.0-34.0); MEAN CORPUSCULAR HGB CONC 34.1 g/dL (33.0-35.0); MEAN CORPUSCULAR VOLUME 91.1 fL (80.0-100.0); MEAN PLATELET VOLUME 7.4 fL (7.4-11.0); MONOCYTES # (AUTO) 0.6 x10^3/uL (0.3-0.8); MONOCYTES % (AUTO) 7.9 % (0.0-13.0); NEUTROPHILS # (AUTO) 3.2 x10^3/uL (2.2-4.8); NEUTROPHILS % (AUTO) 42.8 % (42.0-75.0); PLATELET COUNT 255 X10^3/uL (150.0-450.0); RED BLOOD COUNT 3.71 X10^6/uL (3.5-5.4); RED CELL DISTRIBUTION WIDTH 13.4 % (11.6-16.5); WHITE BLOOD COUNT 7.5 X10^3/uL (3.6-10.0)
[2018-04-27 05:54] LABS: ALANINE AMINOTRANSFERASE 25 Units/L (12-78); ALBUMIN 3.7 g/dL (3.4-5.0); ALKALINE PHOSPHATASE 56 Units/L (46-116); ASPARTATE AMINO TRANSFERASE 17 Units/L (15-37); BLOOD UREA NITROGEN 19 mg/dL (7-18); CARBON DIOXIDE 29.2 mmol/L (21-32); CHLORIDE 105 mmol/L (98-107); CREATININE 0.87 mg/dL (0.55-1.02); SODIUM 143 mmol/L (136-145); TOTAL PROTEIN 7.6 g/dL (6.4-8.2); eGFR NON BLACK RACES > 60 (>60)
[2018-04-27] MEDS: NS 1000 ML 1,000 ML IV SCH (06:18)
--- NOTE | 2018-04-27 06:28 | RAD ---
Examination: AP chest History: TIA Comparison 04/08/2018 Findings: Continued normal heart size. No acute pulmonary or pleural lesion noted. Minimal linear fibrosis in the right lung with chronic elevation right hemidiaphragm. Stable position of spinal cord stimulator device in the thoracic spinal canal. Impression: No interval change or acute findings. Reported By:
[2018-04-27] MEDS ORDERED: PLAVIX PO SCH (12:00)
[2018-04-27] MEDS ORDERED: HYZAAR 50/12.5 MG PO SCH (12:00)
[2018-04-27] MEDS ORDERED: ASPIRIN PO SCH (12:00)
[2018-04-27] MEDS ORDERED: NORVASC TAB 5 MG PO SCH (12:00)
[2018-04-27 12:44] VITALS: BP 166/69
--- NOTE | 2018-05-02 07:21 | DR.AMS ---
HPI PCP Primary Care Physician: DR. FREEMAN HPI Comment HPI Comment: SLURRED SPEECH Complaint Chief Complaint:: PT'S FAMILY C/O PT STARTED WITH SLURRED SPEECH AND WEAKNESS. THAT STARTED APPROX 30 MINS AGO. Self Treatment fo Chief Complaint: SLURRED SPEECH ONE HOUR AGO. Reviewed Nurses Notes Reviewed: Yes Source History Provided: Patient and EMS Mode of Arrival Mode of Arrival: EMS Timing Onset of Chief Complaint: 04/26/18 Came On: Suddenly Symptoms: Improving Duration Duration: Constant Duration: Hours Severity Severity: Moderate Context Recent: None History Of: None Associated Signs and Symptoms Associated Signs and Symptoms: Slurred Speech PMH PMH Past Surgical History: Yes Surgical History: DISPATCH COORDINATOR Surgery, Hysterectomy and Ortho Surgery Family History History of Family Medical Conditions: Yes Family Medical History: Diabetes Mellitus, Cancer, [place], Coronary Artery Disease and Hypertension Social History Does patient currently use any type of tobacco product: No Have you used tobacco products in the last 12 months: No Type of Tobacco Use: None Does any household member use tobacco: No Alcohol Use: None Do you use any recreational Drugs:: No Lives With: Alone Lives Where: Home infectious screening In the last 2 months have you had wt loss of >10#?: NO Have you had fever, night sweats or hemotysis?: No Have you traveled outside the country in the last 6 months?: No Isolation: Standard ROS Review of Systems Constitutional: No Symptoms Reported Eyes: No Symptoms Reported ENTM: No Symptoms Reported Respiratoy: No Symptoms Reported Cardiovascular: No Symptoms Reported Gastrointestinal/Abdominal: No Symptoms Reported Genitourinary: No Symptoms Reported Neurological: Speech Problem Musculoskeletal: No Symptoms Reported Integumentary: No Symptoms Reported Hematologic/Lymphatic: No Symptoms Reported Endocrine: No Symptoms Reported Psychiatric: No Symptoms Reported All Other Systems: Reviewed and Negative PE Vitals Vital Signs: Temp Pulse Pulse Resp BP BP BP 04/27/18 12:39 75 26 H 04/27/18 12:06 77 27 H 166/69 04/27/18 11:13 78 24 04/27/18 10:21 80 26 H 04/27/18 10:20 79 26 H 04/27/18 08:14 166/72 04/27/18 07:00 97.9 F 75 21 160/67 04/27/18 06:00 81 21 153/67 04/27/18 05:08 79 21 149/69 04/27/18 04:00 98.1 F 79 18 151/65 04/27/18 03:57 79 23 04/27/18 03:00 82 25 H 169/67 04/27/18 02:00 80 22 147/67 04/27/18 01:32 80 21 128/58 04/26/18 22:00 79 24 136/62 04/26/18 21:00 134/61 04/26/18 20:46 78 23 04/26/18 20:00 98.9 F 79 34 H 132/63 04/26/18 19:00 80 27 H 144/65 04/26/18 18:00 79 26 H 133/63 04/26/18 17:00 79 20 129/58 04/26/18 16:00 98.2 F 79 16 142/63 04/26/18 15:45 74 21 04/26/18 15:39 74 26 H 120/60 04/26/18 15:30 73 22 117/56 04/26/18 15:15 74 28 H 04/26/18 15:00 72 18 117/59 04/26/18 14:45 74 25 H 04/26/18 14:30 74 22 126/58 04/26/18 14:15 72 24 04/26/18 14:00 72 25 H 118/57 04/26/18 13:45 72 21 04/26/18 13:34 74 20 04/26/18 12:49 98.2 F 77 18 134/66 04/09/18 07:50 160/69 160/69 04/07/18 11:45 135/64 Pulse Ox 04/27/18 12:39 95 04/27/18 12:06 95 04/27/18 11:13 95 04/27/18 10:21 94 L 04/27/18 10:20 94 L 04/27/18 08:14 04/27/18 07:00 95 04/27/18 06:00 96 04/27/18 05:08 94 L 04/27/18 04:00 95 04/27/18 03:57 95 04/27/18 03:00 96 04/27/18 02:00 94 L 04/27/18 01:32 95 04/26/18 22:00 95 04/26/18 21:00 04/26/18 20:46 93 L 04/26/18 20:00 94 L 04/26/18 19:00 94 L 04/26/18 18:00 95 04/26/18 17:00 97 04/26/18 16:00 97 04/26/18 15:45 96 04/26/18 15:39 96 04/26/18 15:30 96 04/26/18 15:15 97 04/26/18 15:00 97 04/26/18 14:45 97 04/26/18 14:30 95 04/26/18 14:15 95 04/26/18 14:00 04/26/18 13:45 04/26/18 13:34 04/26/18 12:49 95 04/09/18 07:50 04/07/18 11:45 General General Appearance: Alert Head Head Exam: Normal Inspection Head Exam Physical: Other Eyes Eye exam: PERRL and EOMI; negative Scleral Icterus and Conjunctival Injection Pupils: Regular, Round: Bilateral and Reactive: Bilateral ENT ENT Exam: Normal Exam External Ear Exam: Normal External Inspection TM/Canal Exam: Bilateral: Normal Nose Exam: Normal Nose Exam Mouth Exam: Normal Inspection Throat Exam: Normal Inspection Neck Neck Exam: Normal Inspection Chest Chest Inspection: Normal Inspection Respiratory Respiratory Exam: Normal Lung Sounds Bilat Respiratory Exam: Bilateral: Rhonchi and Lower: Rhonchi Cardiovascular Cardiovascular Exam: Regular Rate and Normal Rhythm Abdominal Exam Abdominal Exam: Normal Bowel Sounds and Soft; negative Tenderness Extremities Extremities Exam: Normal Inspection Back Back Exam: Normal Inspection Neurological Neurological Exam: Alert and Oriented X3; negative Motor Sensory Deficit Patient Oriented To: Person, Place and Time MDM Differential Diagnosis Metabolic: Dehydration, Hypercalcemia, Hypernatremia, Hypoglycemia, Hyponatremia and Hypoxemia Structural: CVA and Mass Lesion Infectious: Sepsis and UTI COURSE Treatment Treatment: SEE ORDERS. Reevaluation 2nd: Worsened Education/Counseling Education/Counseling: Patient Educated On: Diagnosis ROR Labs Reviewed Laboratory Results Reviewed?: Yes Result Diagrams: 04/27/18 05:05 04/27/18 05:05 Laboratory: WBC 7.5 X10^3/uL (3.6-10.0) 04/27/18 05:05 RBC 3.71 X10^6/uL (3.5-5.4) 04/27/18 05:05 Hgb 11.5 g/dL (12.0-16.0) L 04/27/18 05:05 Hct 33.8 % (36.0-47.0) L 04/27/18 05:05 MCV 91.1 fL (80.0-100.0) 04/27/18 05:05 MCH 31.1 pg (27.0-34.0) 04/27/18 05:05 MCHC 34.1 g/dL (33.0-35.0) 04/27/18 05:05 RDW 13.4 % (11.6-16.5) 04/27/18 05:05 Plt Count 255 X10^3/uL (150.0-450.0) 04/27/18 05:05 MPV 7.4 fL (7.4-11.0) 04/27/18 05:05 Neut % (Auto) 42.8 % (42.0-75.0) 04/27/18 05:05 Lymph % (Auto) 44.9 % (21.0-51.0) 04/27/18 05:05 [place] % (Auto) 7.9 % (0.0-13.0) 04/27/18 05:05 Eos % (Auto) 3.8 % (0.9-2.9) H 04/27/18 05:05 Baso % (Auto) 0.6 % (0.2-1.0) 04/27/18 05:05 Neut # (Auto) 3.2 x10^3/uL (2.2-4.8) 04/27/18 05:05 Lymph # (Auto) 3.3 X10^3/uL (1.3-2.9) H 04/27/18 05:05 [place] # (Auto) 0.6 x10^3/uL (0.3-0.8) 04/27/18 05:05 Eos # (Auto) 0.3 x10^3/uL (0.0-0.2) H 04/27/18 05:05 Baso # (Auto) 0.0 X10^3/uL (0.0-0.1) 04/27/18 05:05 Absolute Nucleated RBC 0.1 /100WBC 04/27/18 05:05 Sodium 143 mmol/L (136-145) 04/27/18 05:05 Corrected Sodium TNP 04/27/18 05:05 Potassium 4.3 mmol/L (3.5-5.1) 04/27/18 05:05 Chloride 105 mmol/L (98-107) 04/27/18 05:05 Carbon Dioxide 29.2 mmol/L (21-32) 04/27/18 05:05 BUN 19 mg/dL (7-18) H 04/27/18 05:05 Creatinine 0.87 mg/dL (0.55-1.02) 04/27/18 05:05 Est GFR (MDRD) Af Amer > 60 (>60) 04/27/18 05:05 Est GFR (MDRD) Non-Af > 60 (>60) 04/27/18 05:05 Glucose 101 mg/dL (65-99) H 04/27/18 05:05 POC Glucose (mg/dL) 133 mg/dL (65-99) H 04/27/18 11:44 Calcium 9.0 mg/dL (8.5-10.1) 04/27/18 05:05 Corrected Calcium TNP 04/27/18 05:05 Total Bilirubin 0.20 mg/dL (0.2-1.0) 04/27/18 05:05 AST 17 Units/L (15-37) 04/27/18 05:05 ALT 25 Units/L (12-78) 04/27/18 05:05 Alkaline Phosphatase 56 Units/L (46-116) 04/27/18 05:05 Total Protein 7.6 g/dL (6.4-8.2) 04/27/18 05:05 Albumin 3.7 g/dL (3.4-5.0) 04/27/18 05:05 Globulin 3.9 g/dL (2.5-4.5) 04/27/18 05:05 Albumin/Globulin Ratio 0.9 Ratio (1.1-2.1) L 04/27/18 05:05 XRAY XRAY Interpreted by: Radiologist XRAY Findings: REPORT NOTED Instructions Instructions: Type 2 Diabetes Mellitus, Diagnosis, Adult Transient Ischemic Attack, Kbgv-bf-Ihpw Weakness, Pkwx-tf-Bzji Diabetes Mellitus and Sick Day Management Hypertension, Kbsk-rp-Fysp Forms: Patient Portal
== END 2018-04-27 13:20 | disposition home or self-care (01) ==
LOC: ICU 12:47 → ER 12:47 → ICU 15:57
PROVIDERS: ADMIT Obstetrics & Gynecology Obstetrics; ATTEND Internal Medicine
DX: R47.81 Slurred speech; G45.8 Other transient cerebral ischemic attacks and related syndromes; Z79.899 Other long term (current) drug therapy; E11.65 Type 2 diabetes mellitus with hyperglycemia; R94.31 Abnormal electrocardiogram [ECG] [EKG]; Z79.01 Long term (current) use of anticoagulants; I10 Essential (primary) hypertension
CPT/HCPCS: 36415; 70450; 71010; 71045; 80053; 85025; 93005; 96365; 99284; G0378; J7030

== ENCOUNTER 2018-06-30 09:03 | Observation (INO) ==
[2018-06-30 09:21] VITALS: BMI 29.9
[2018-06-30 09:28] LABS: BASOPHILS # (AUTO) 0.1 X10^3/uL (0.0-0.1); BASOPHILS % (AUTO) 1.8 % (0.2-1.0); EOSINOPHILS # (AUTO) 0.3 x10^3/uL (0.0-0.2); EOSINOPHILS % (AUTO) 5.2 % (0.9-2.9); HEMATOCRIT 34.6 % (36.0-47.0); HEMOGLOBIN 11.6 g/dL (12.0-16.0); LYMPHOCYTES # (AUTO) 2.6 X10^3/uL (1.3-2.9); LYMPHOCYTES % (AUTO) 41.1 % (21.0-51.0); MEAN CORPUSCULAR HEMOGLOBIN 30.7 pg (27.0-34.0); MEAN CORPUSCULAR HGB CONC 33.6 g/dL (33.0-35.0); MEAN CORPUSCULAR VOLUME 91.5 fL (80.0-100.0); MEAN PLATELET VOLUME 7.5 fL (7.4-11.0); MONOCYTES # (AUTO) 0.4 x10^3/uL (0.3-0.8); MONOCYTES % (AUTO) 7.1 % (0.0-13.0); NEUTROPHILS # (AUTO) 2.8 x10^3/uL (2.2-4.8); NEUTROPHILS % (AUTO) 44.8 % (42.0-75.0); PLATELET COUNT 328 X10^3/uL (150.0-450.0); RED BLOOD COUNT 3.78 X10^6/uL (3.5-5.4); RED CELL DISTRIBUTION WIDTH 13.8 % (11.6-16.5); WHITE BLOOD COUNT 6.2 X10^3/uL (3.6-10.0)
[2018-06-30] MEDS ORDERED: NS 1000 ML 1,000 ML ONE (09:32)
[2018-06-30 09:42] LABS: BLOOD UREA NITROGEN 22 mg/dL (7-18); CALCIUM 9.5 mg/dL (8.5-10.1); CARBON DIOXIDE 23.7 mmol/L (21-32); CHLORIDE 104 mmol/L (98-107); COR NA(FOR HYPERGLY) 141 mmol/L (136-145); CREATININE 1.06 mg/dL (0.55-1.02); SODIUM 140 mmol/L (136-145); TROPONIN I < 0.02 ng/mL (0-1.5); eGFR NON BLACK RACES 52 (>60)
[2018-06-30] MEDS: NS 1000 ML 1,000 ML IV SCH (09:43)
--- NOTE | 2018-06-30 09:44 | DR.DIZZY ---
HPI Time seen Time Seen by Provider: 06/30/18 09:38 HPI Comment HPI Comment: ATIENT FAMILY SPOKE WITH HER ON THE PHONE AND ONE HOUR LATER WHEN THEY WENT TO TAKE HER TO [place], SHE WAS WEAK ON THE LEFT SIDE AND HER SPEECH SLOW. DENIES HEADACHE, FEVER OR DYSURIA. IN ED, SPEECH IS CLEAR AND WEAKNESS IMP ROVING. PATIENT HAVE TAKEN HER MORNING MEDICATIONS ALREADY. Complaint Chief Complaint Doctor Comments: LEFT SIDED WEAKNESS TIMES ONE HOUR. Chief Complaint:: POSSIBLE TIA Nurses Notes Reviewed Nurses Notes Review: Yes Source History Provided: Patient and Family Member Mode of Arrival Mode of Arrival: Wheelchair Timing Onset of Chief Complaint: 06/30/18 Came on: Suddenly Duration Duration: Constant (IMPROVING.) Duration: Hours Location of Weakness Weakness Location: Left (SIDED.) Context Onset: At rest History of: TIA Stroke Symptoms: Weakness of limb Severity Severity: Abnormal activity level Modifying factors Worsens: Nothing Associated signs and symptoms Associated Signs and Symptoms: Near Syncope and Weak PMH PMH Past Medical History: Yes Past Medical History: Anxiety, Depression, Dyslipidemia, GERD, Hypertension, Hypothyroidism, Kidney Stones and MD Past Surgical History: Yes 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: No Have you traveled outside the country in the last 6 months?: No Isolation: Standard ROS Review of Systems Constitutional: Weakness and Fatigue Eyes: No Symptoms Reported ENTM: No Symptoms Reported Respiratoy: No Symptoms Reported Cardiovascular: No Symptoms Reported Gastrointestinal/Abdominal: No Symptoms Reported Genitourinary: No Symptoms Reported Neurological: No Symptoms Reported and Weakness (LEFT SIDED.) Musculoskeletal: No Symptoms Reported and Back Pain (CHRONIC.) Integumentary: No Symptoms Reported Hematologic/Lymphatic: No Symptoms Reported Endocrine: No Symptoms Reported Psychiatric: No Symptoms Reported All Other Systems: Reviewed and Negative PE Vital Signs Vitals: Temperature 97.9 F Pulse Rate 76 Respiratory Rate 23 Blood Pressure [Right Arm] 133/63 Blood Pressure [Left Arm] 135/64 Blood Pressure 138/64 O2 Sat by Pulse Oximetry 94 General Limitations: No Limitations General Appearance: Alert and In No Apparent Distress Head Head Exam: Normal Inspection Eyes Eye exam: Normal Appearance Pupils: Regular, Round: Bilateral and Reactive: Bilateral Sclera/Conjunctival: Normal Inspection: Bilateral ENT ENT Exam: Normal Exam, Normal Oropharynx, Normal External Ear Exam and TM's Normal Bilaterally Neck Neck Exam: Normal Inspection and Full ROM; negative Tenderness, Meningismus and Lymphadenopathy Chest Chest Inspection: Normal Inspection and Symmetric Chest Wall Rise Respiratory Respiratory Exam: Normal Lung Sounds Bilat Respiratory Exam: Bilateral: Clear to Auscultation Cardiovascular Cardiovascular Exam: Regular Rate and Normal Rhythm Abdominal Exam Abdominal Exam: Normal Inspection, Normal Bowel Sounds and Soft; negative Tenderness Rectal Rectal Exam: Deferred Extremeties Extremities Exam: Normal Inspection and Full ROM Back Back Exam: Normal Inspection and Full ROM Neurologic Neurological Exam: Alert, Oriented X3 and CN II-XII Intact; negative Motor Sensory Deficit Patient Oriented To: Person, Place and Time Speech: Fluid Speech Cranial Nerve Exam: EOM Function (II, III, IV, ): Normal, Facial Sensation (V): Normal, Facial Palsy (VII): Normal, Gag reflex (XI): Normal and Tongue Deviation: Normal Motor Strength - LUE: 5/5 Motor Strength - RUE: 5/5 Motor Strength - LLE: 5/5 Motor Strength - RLE: 5/5 Upper Motor Neuron Exam: Babinski Sign: Normal Psychiatric Psychiatric Exam: Normal Affect and Normal Mood Skin Skin Exam: Dry MDM Additional Information Obtained Additional Information Obtained From: Family Differential Diagnosis Differential Diagnosis: Anemia, CVA, Dehydration, Dysrhythmia, Electrolyte disorder, Hypoglycemia, Myocardial infarction and TIA Differential Diagnosis Comment: PNEUMONIA, UTI. COURSE Treatment Treatment: SEE ORDERS. Consultation Consultation Comments: DISCUSS PATIENT WITH DR. RO. HE WILL ADMIT PATIENT. Education/Counseling Education/Counseling: Patient and Family Educated On: Diagnosis ROR Labs Reviewed Laboratory Results Reviewed?: Yes Result Diagrams: 06/30/18 09:17 06/30/18 09:17 Laboratory: WBC 6.2 X10^3/uL (3.6-10.0) 06/30/18 09:17 RBC 3.78 X10^6/uL (3.5-5.4) 06/30/18 09:17 Hgb 11.6 g/dL (12.0-16.0) L 06/30/18 09:17 Hct 34.6 % (36.0-47.0) L 06/30/18 09:17 MCV 91.5 fL (80.0-100.0) 06/30/18 09:17 MCH 30.7 pg (27.0-34.0) 06/30/18 09:17 MCHC 33.6 g/dL (33.0-35.0) 06/30/18 09:17 RDW 13.8 % (11.6-16.5) 06/30/18 09:17 Plt Count 328 X10^3/uL (150.0-450.0) 06/30/18 09:17 MPV 7.5 fL (7.4-11.0) 06/30/18 09:17 Neut % (Auto) 44.8 % (42.0-75.0) 06/30/18 09:17 Lymph % (Auto) 41.1 % (21.0-51.0) 06/30/18 09:17 [place] % (Auto) 7.1 % (0.0-13.0) 06/30/18 09:17 Eos % (Auto) 5.2 % (0.9-2.9) H 06/30/18 09:17 Baso % (Auto) 1.8 % (0.2-1.0) H 06/30/18 09:17 Neut # (Auto) 2.8 x10^3/uL (2.2-4.8) 06/30/18 09:17 Lymph # (Auto) 2.6 X10^3/uL (1.3-2.9) 06/30/18 09:17 [place] # (Auto) 0.4 x10^3/uL (0.3-0.8) 06/30/18 09:17 Eos # (Auto) 0.3 x10^3/uL (0.0-0.2) H 06/30/18 09:17 Baso # (Auto) 0.1 X10^3/uL (0.0-0.1) 06/30/18 09:17 Absolute Nucleated RBC 0.0 /100WBC 06/30/18 09:17 INR Target Range - 06/30/18 09:17 INR 0.93 (0.8-1.3) 06/30/18 09:17 APTT 26.6 SECONDS (22.9-36.5) 06/30/18 09:17 PTT Comment - 06/30/18 09:17 Sodium 140 mmol/L (136-145) 06/30/18 09:17 Corrected Sodium 141 mmol/L (136-145) 06/30/18 09:17 Potassium 3.8 mmol/L (3.5-5.1) 06/30/18 09:17 Chloride 104 mmol/L (98-107) 06/30/18 09:17 Carbon Dioxide 23.7 mmol/L (21-32) 06/30/18 09:17 BUN 22 mg/dL (7-18) H 06/30/18 09:17 Creatinine 1.06 mg/dL (0.55-1.02) H 06/30/18 09:17 Est GFR (MDRD) Af Amer > 60 (>60) 06/30/18 09:17 Est GFR (MDRD) Non-Af 52 (>60) L 06/30/18 09:17 Glucose 151 mg/dL (65-99) H 06/30/18 09:17 Calcium 9.5 mg/dL (8.5-10.1) 06/30/18 09:17 Corrected Calcium TNP 06/30/18 09:17 Magnesium 2.0 mg/dL (1.7-2.9) 06/30/18 09:17 Total Bilirubin 0.30 mg/dL (0.2-1.0) 06/30/18 09:17 AST 20 Units/L (15-37) 06/30/18 09:17 ALT 23 Units/L (12-78) 06/30/18 09:17 Alkaline Phosphatase 52 Units/L (46-116) 06/30/18 09:17 Creatine Kinase 193 Units/L (26-192) H 06/30/18 09:17 CK-MB (CK-2) 3.9 ng/mL (0-4.0) 06/30/18 09:17 CK/CKMB % Calc 2.0 % (<4) 06/30/18 09:17 Troponin I < 0.02 ng/mL (0-1.5) 06/30/18 09:17 Total Protein 7.8 g/dL (6.4-8.2) 06/30/18 09:17 Albumin 3.9 g/dL (3.4-5.0) 06/30/18 09:17 Globulin 3.9 g/dL (2.5-4.5) 06/30/18 09:17 Albumin/Globulin Ratio 1.0 Ratio (1.1-2.1) L 06/30/18 09:17 XRAY XRAY Interpreted by: Radiologist XRAY Findings: REPORT DISCUSS WITH PATIENT AND FAMILY.
[2018-06-30 09:46] LABS: ALANINE AMINOTRANSFERASE 23 Units/L (12-78); ALBUMIN 3.9 g/dL (3.4-5.0); ALKALINE PHOSPHATASE 52 Units/L (46-116); ASPARTATE AMINO TRANSFERASE 20 Units/L (15-37); CREATINE KINASE 193 Units/L (26-192); CREATINE KINASE MB 3.9 ng/mL (0-4.0); TOTAL PROTEIN 7.8 g/dL (6.4-8.2)
--- NOTE | 2018-06-30 09:48 | CT ---
HISTORY: Weakness Study: CT brain without contrast Comparison: April 26, 2018 Technique: Multiple axial images of the brain were obtained from the skull base to the vertex without administration of IV contrast. Findings: No acute intraparenchymal hemorrhage or mass can be identified. No extra-axial fluid collections are seen. No alteration in the attenuation of the brain parenchyma can be identified to suggest acute or subacute ischemic change. The ventricles, sulci, and cisterns demonstrate an appearance consistent with a mild degree of generalized atrophy. Patchy areas of decreased attenuation within the periventricular, subcortical, and subinsular white matter suggest changes of chronic small vessel ischemic disease. Remote lacunar infarcts are again seen within the left subinsular white matter and castañeda radiata. If symptoms or clinical concern persist recommend continued follow-up for further evaluation. IMPRESSION: No acute intracranial process can be identified. Mild generalized atrophy with findings consistent with changes of chronic small vessel ischemic disease. Reported By:
--- NOTE | 2018-06-30 10:03 | RAD ---
HISTORY: Weakness Study: Single-view of the chest Comparison: April 27, 2018 Findings: The patient is rotated. The cardiac silhouette is unremarkable. The lungs are clear without focal infiltrate or effusion. Elevation of the right hemidiaphragm is again noted similar to prior exam. Stimulator leads again project over the thoracic spine. IMPRESSION: 1. No acute cardiopulmonary disease. Reported By:
--- NOTE | 2018-06-30 13:50 | DR.H&P ---
H&P - History & Physical for Day of: H&P Date: 06/30/18 - Chief Complaint Chief Complaint: TIA - History of Present Illness History of Present Illness: 82 WF ER ADMISSION WITH CO PER FAMILY A SUDDEN ONSET OF CONFUSION WITH "TALKING CRAZY" WORD SALAD AND HAS HX OF TIAS, DM, HTN, OA, HYPERLIPIDEMIA. PT DENIES ANY CP, SOB FOR SYNCOPE PRIOR TO ARRIVAL. PT STATES SHE CHECK BS 110, ATE BREAKFAST AND WAS HAVING COFFEE WHEN WITNESSED CONFUSION BEGAN, AND WAS RESOLVED UPON ER ARRIVAL, CT HEAD NEGATIVE FOR ACUTE FINDINGS. PT CANNOT HAVE MRI DUE TO SPINAL STIMULATOR. PT ADMITTED FOR TREATMENT OF ACUTE TIA, R/O NEW ONSET CVA. 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, Hysterectomy, Ortho Surgery, Other Additional Surgical History: Hemorrhoidectomy X 2, Tubal, Spinal Stimulator, Carpal Tunnel - Family History Family Medical History: Diabetes Mellitus, Cancer, CA, Coronary Artery Disease, Hypertension - Social History Does patient currently use any type of tobacco product: No Have you used tobacco products in the last 12 months: No Type of Tobacco Use: None Does any household member use tobacco: No Alcohol Use: None Drug Use: Prescription Drugs - Medications Home Medications: codeine Allergy (Verified 04/07/18 10:02) Penicillins Allergy (Verified 04/07/18 10:02) CONTINUE taking the following medications diphenhydramine HCl 50 mg PO Q4-6H PRN 06/30/18 [History] - Review of Systems Constitutional: Weakness Eyes: No Symptoms Reported ENT: No Symptoms Reported Respiratory: No Symptoms Reported Cardiovascular: No Symptoms Reported Gastrointestinal: No Symptoms Reported Genitourinary: No Symptoms Reported Musculoskeletal: Back Pain Skin: No Symptoms Reported Neurological: Change in Speech, Confusion - Physical Exam Vital Signs: Temperature 97.6 F Pulse Rate [Right] 60 Pulse Rate 76 Respiratory Rate 18 Blood Pressure [Right Arm] 115/57 Blood Pressure [Left Arm] 135/64 Blood Pressure 138/64 O2 Sat by Pulse Oximetry 99 Oriented: Normal Eyes: Normal Ear: Normal Nose: Normal Throat: Normal Respiratory: Clear Throughout Cardiovascular: Normal : Normal Auscultation: Bowel Sounds: Normal Palpation: Normal Tenderness: Normal Skin: Normal Musculoskeletal: Normal Psychiatric: Normal Mood Description: Calm Speech Pattern: Clear, Appropriate. negative: Delayed, Slurred - Assessment/Plan (1) TIA (transient ischemic attack) Status: Acute Plan: ADMIT, CT HEAD ON ADMISSION. ER LABS CBC CMP UA, REPEAT Q AM. BP AND BLOOD SUGAR CONTROL. CONTINUE ASPIRIN, PLAVIX AND STATIN. TELEMETRY, CE AND EKG ON ADMISSION (2) Essential hypertension Status: Chronic (3) Hypothyroidism Status: Chronic (4) GERD (gastroesophageal reflux disease) Status: Chronic (5) DANIEL (generalized anxiety disorder) Status: Chronic (6) Slurred speech Status: Acute (7) Generalized weakness Status: Acute - Allergies Allergies/Adverse Reactions: Allergies Allergy/AdvReac Type Severity Reaction Status Date / Time codeine Allergy Verified 04/07/18 10:02 Penicillins Allergy Verified 04/07/18 10:02
[2018-06-30 16:46] LABS: CKMB % 1.8 % (<4); CREATINE KINASE 161 Units/L (26-192); CREATINE KINASE MB 2.9 ng/mL (0-4.0); TROPONIN I < 0.02 ng/mL (0-1.5)
[2018-06-30 18:02] LABS: BILIRUBIN,URINE NEGATIVE (NEGATIVE); BLOOD/HEMOGLOBIN,URINE 1+ (NEGATIVE); GLUCOSE, URINE NEGATIVE (NEGATIVE); KETONES,URINE NEGATIVE (NEGATIVE); LEUKOCYTE ESTERASE ,URINE 3+ (NEGATIVE); NITRITES,URINE NEGATIVE (NEGATIVE); PROTEIN,URINE 1+ (NEGATIVE); UROBILINOGEN,URINE NORMAL (NORMAL)
[2018-06-30 18:10] LABS: APPEARANCE,URINE HAZY (CLEAR); COLOR,URINE PALE YELLOW (YELLOW)
[2018-06-30 18:11] LABS: BACTERIA,URINE 1+ /HPF (NEGATIVE); SQUAMOUS EPITHELIAL CELL,UR RARE /HPF (NEGATIVE)
[2018-06-30 22:31] LABS: CKMB % 1.4 % (<4); CREATINE KINASE 154 Units/L (26-192); CREATINE KINASE MB 2.1 ng/mL (0-4.0); TROPONIN I < 0.02 ng/mL (0-1.5)
[2018-07-01] MEDS: NS 1000 ML 1,000 ML IV SCH ×3 (02:06→20:46)
[2018-07-01 06:58] LABS: BASOPHILS # (AUTO) 0.1 X10^3/uL (0.0-0.1); BASOPHILS % (AUTO) 1.3 % (0.2-1.0); EOSINOPHILS # (AUTO) 0.3 x10^3/uL (0.0-0.2); EOSINOPHILS % (AUTO) 6.2 % (0.9-2.9); HEMOGLOBIN 11.7 g/dL (12.0-16.0); LYMPHOCYTES # (AUTO) 2.6 X10^3/uL (1.3-2.9); LYMPHOCYTES % (AUTO) 46.5 % (21.0-51.0); MEAN CORPUSCULAR HEMOGLOBIN 30.8 pg (27.0-34.0); MEAN CORPUSCULAR HGB CONC 33.6 g/dL (33.0-35.0); MEAN CORPUSCULAR VOLUME 91.7 fL (80.0-100.0); MEAN PLATELET VOLUME 7.6 fL (7.4-11.0); MONOCYTES # (AUTO) 0.5 x10^3/uL (0.3-0.8); MONOCYTES % (AUTO) 8.4 % (0.0-13.0); NEUTROPHILS # (AUTO) 2.1 x10^3/uL (2.2-4.8); NEUTROPHILS % (AUTO) 37.6 % (42.0-75.0); PLATELET COUNT 305 X10^3/uL (150.0-450.0); RED BLOOD COUNT 3.81 X10^6/uL (3.5-5.4); RED CELL DISTRIBUTION WIDTH 13.8 % (11.6-16.5); WHITE BLOOD COUNT 5.6 X10^3/uL (3.6-10.0)
[2018-07-01 07:07] LABS: ALANINE AMINOTRANSFERASE 24 Units/L (12-78); ALBUMIN 3.6 g/dL (3.4-5.0); ALKALINE PHOSPHATASE 46 Units/L (46-116); ASPARTATE AMINO TRANSFERASE 19 Units/L (15-37); BLOOD UREA NITROGEN 19 mg/dL (7-18); CALCIUM 9.3 mg/dL (8.5-10.1); CARBON DIOXIDE 27.1 mmol/L (21-32); CHLORIDE 107 mmol/L (98-107); CREATININE 0.79 mg/dL (0.55-1.02); SODIUM 142 mmol/L (136-145); TOTAL PROTEIN 7.6 g/dL (6.4-8.2); eGFR NON BLACK RACES > 60 (>60)
[2018-07-01] MEDS ORDERED: XANAX PO PRN (10:55)
[2018-07-01] MEDS ORDERED: FIORICET TAB PO PRN (11:21)
[2018-07-01] MEDS: LEVAQUIN PREMIX IV 750 MG 750 MG/150 ML BAG IV SCH (11:35)
[2018-07-01] MEDS: FLONASE NASAL SPRAY ENOSTRIL SCH (11:35)
[2018-07-01] MEDS: SYNTHROID 88 mcg TAB PO SCH (11:36)
[2018-07-01] MEDS: NORVASC TAB 5 MG PO SCH (11:37)
[2018-07-01] MEDS: HYZAAR 50/12.5 MG PO SCH (11:37)
[2018-07-01] MEDS: HEMOCYTE-PLUS PO SCH (11:38)
[2018-07-01] MEDS: SINGULAIR TAB 10 MG PO SCH (11:38)
[2018-07-01] MEDS: EFFEXOR XR 75 MG CAP PO SCH (11:38)
[2018-07-01] MEDS: ASPIRIN PO SCH (11:38)
[2018-07-01] MEDS: PLAVIX PO SCH (11:39)
[2018-07-01] MEDS: NexIUM PO SCH (11:40)
[2018-07-01] MEDS: GLYBURIDE METFORMIN PO SCH ×2 (13:32→20:48)
[2018-07-01] MEDS: PRASTERONE 50 MG PO SCH (13:33)
[2018-07-01] MEDS: PROGESTERONE MICRONIZED 200 MG PO SCH (13:33)
[2018-07-01] MEDS ORDERED: TYLENOL 325 MG TAB PO PRN (13:40)
[2018-07-01] MEDS: LOVENOX INJ 40 MG SYR SC SCH (15:44)
--- NOTE | 2018-07-01 20:29 | PCM.PROG ---
Progress Note - Progress Note for Day of Date of Exam: 07/01/18 - Subjective Subjective: WAS ADMITTED FOR AMS, TIA, AND LEFT SIDED WEAKNESS. TODAY, SHE IS ALERT AND ORIENTED, LYING IN BED ON MORNING ROUNDS. SHE IS NOTED WITH COMPLAINTS OF MILD ABDOMINAL PAIN AND GENERALIZED WEAKNESS. ON EXAMINATION, HEART IS REGULAR IN RATE AND RHYTHM. BILATERAL LUNGS ARE NOTED WITH DIMINISHED LUNG SOUNDS THROUGHOUT. ABDOMEN IS ROUND, SOFT, AND NOTED WITH MILD SUPRAPUBIC TENDERNESS. HER VITLAS THIS MORNING ARE 99.1-75-18-97%RA-135/64. LABS WERE OBTAINED. ABNORMAL LAB VALUES INCLUDE THE FOLLOWING: HGB 11.7, HCT 35.0, BUN 19, GLUCOSE 105. CARDIAC ENZYMES HAVE BEEN WITHIN NORMAL LIMITS. A URINALYSIS WAS OBTAINED YESTERDAY AND REVEALED: WBC TNTC, RBC 3-5, BACTERIA 1+, LEUKOCYTES 3+. A URINE CULTURE IS PENDING. TODAY, WE WILL START LEVAQUIN 750MG IV DAILY. OTHERWISE, WE WILL CONTINUE WITH CURRENT PLAN OF CARE. WE WILL FOLLOW UP WITH AM LABS AND CONTINUE TO MONITOR. - Past Medical Family Social History Past Med/Fam/Surg Hx: No changes since H&P Allergies: Allergies codeine Allergy (Verified 04/07/18 10:02) Penicillins Allergy (Verified 04/07/18 10:02) - Review of Systems ROS: No change since H&P - Vital Signs and I&O's Vital Signs: Temperature 98.8 F Pulse Rate [Right] 77 Pulse Rate 76 Respiratory Rate 18 Blood Pressure [Right Arm] 117/54 Blood Pressure [Left Arm] 135/64 Blood Pressure 138/64 O2 Sat by Pulse Oximetry 96 Intake and Output: Intake & Output 06/29/18 06/30/18 07/01/18 07/02/18 11:59 11:59 11:59 11:59 Intake Total 680 / 680 1485 / 1485 Balance 680 / 680 1485 / 1485 - Physical Exam Oriented: Normal Eyes: Normal Ear: Normal Nose: Normal Throat: Normal Respiratory: Generalized, Diminished Cardiovascular: Normal. negative: S3, S4, Murmur, Edema : Normal Auscultation: Bowel Sounds: Normal Palpation: Normal Tenderness: Normal Skin: Normal Musculoskeletal: Normal Psychiatric: Normal Mood Description: Calm Speech Pattern: Clear, Appropriate - Laboratory and Diagnostics Result Diagrams: 07/01/18 06:15 07/01/18 06:15 Labs: 06/30/18 17:54 Urine,Clean Catch Urine Culture - Preliminary Laboratory WBC 5.6 X10^3/uL (3.6-10.0) 07/01/18 06:15 RBC 3.81 X10^6/uL (3.5-5.4) 07/01/18 06:15 Hgb 11.7 g/dL (12.0-16.0) L 07/01/18 06:15 Hct 35.0 % (36.0-47.0) L 07/01/18 06:15 MCV 91.7 fL (80.0-100.0) 07/01/18 06:15 MCH 30.8 pg (27.0-34.0) 07/01/18 06:15 MCHC 33.6 g/dL (33.0-35.0) 07/01/18 06:15 RDW 13.8 % (11.6-16.5) 07/01/18 06:15 Plt Count 305 X10^3/uL (150.0-450.0) 07/01/18 06:15 MPV 7.6 fL (7.4-11.0) 07/01/18 06:15 Neut % (Auto) 37.6 % (42.0-75.0) L 07/01/18 06:15 Lymph % (Auto) 46.5 % (21.0-51.0) 07/01/18 06:15 [place] % (Auto) 8.4 % (0.0-13.0) 07/01/18 06:15 Eos % (Auto) 6.2 % (0.9-2.9) H 07/01/18 06:15 Baso % (Auto) 1.3 % (0.2-1.0) H 07/01/18 06:15 Neut # (Auto) 2.1 x10^3/uL (2.2-4.8) L 07/01/18 06:15 Lymph # (Auto) 2.6 X10^3/uL (1.3-2.9) 07/01/18 06:15 [place] # (Auto) 0.5 x10^3/uL (0.3-0.8) 07/01/18 06:15 Eos # (Auto) 0.3 x10^3/uL (0.0-0.2) H 07/01/18 06:15 Baso # (Auto) 0.1 X10^3/uL (0.0-0.1) 07/01/18 06:15 Absolute Nucleated RBC 0.1 /100WBC 07/01/18 06:15 INR Target Range - 06/30/18 09:17 INR 0.93 (0.8-1.3) 06/30/18 09:17 APTT 26.6 SECONDS (22.9-36.5) 06/30/18 09:17 PTT Comment - 06/30/18 09:17 Sodium 142 mmol/L (136-145) 07/01/18 06:15 Corrected Sodium TNP 07/01/18 06:15 Potassium 3.8 mmol/L (3.5-5.1) 07/01/18 06:15 Chloride 107 mmol/L (98-107) 07/01/18 06:15 Carbon Dioxide 27.1 mmol/L (21-32) 07/01/18 06:15 BUN 19 mg/dL (7-18) H 07/01/18 06:15 Creatinine 0.79 mg/dL (0.55-1.02) 07/01/18 06:15 Est GFR (MDRD) Af Amer > 60 (>60) 07/01/18 06:15 Est GFR (MDRD) Non-Af > 60 (>60) 07/01/18 06:15 Glucose 105 mg/dL (65-99) H 07/01/18 06:15 Calcium 9.3 mg/dL (8.5-10.1) 07/01/18 06:15 Corrected Calcium TNP 07/01/18 06:15 Magnesium 2.0 mg/dL (1.7-2.9) 06/30/18 09:17 Total Bilirubin 0.20 mg/dL (0.2-1.0) 07/01/18 06:15 AST 19 Units/L (15-37) 07/01/18 06:15 ALT 24 Units/L (12-78) 07/01/18 06:15 Alkaline Phosphatase 46 Units/L (46-116) 07/01/18 06:15 Creatine Kinase 154 Units/L (26-192) 06/30/18 21:51 CK-MB (CK-2) 2.1 ng/mL (0-4.0) 06/30/18 21:51 CK/CKMB % Calc 1.4 % (<4) 06/30/18 21:51 Troponin I < 0.02 ng/mL (0-1.5) 06/30/18 21:51 Total Protein 7.6 g/dL (6.4-8.2) 07/01/18 06:15 Albumin 3.6 g/dL (3.4-5.0) 07/01/18 06:15 Globulin 4.0 g/dL (2.5-4.5) 07/01/18 06:15 Albumin/Globulin Ratio 0.9 Ratio (1.1-2.1) L 07/01/18 06:15 Specimen Type Clean catch urine 06/30/18 17:54 Urine Color Pale yellow (YELLOW) 06/30/18 17:54 Urine Appearance Hazy (CLEAR) 06/30/18 17:54 Urine pH 6.0 (5.0 - 8.0) 06/30/18 17:54 Ur Specific Brantley 1.005 (1.000-1.030) 06/30/18 17:54 Urine Protein 1+ (NEGATIVE) 06/30/18 17:54 Urine Glucose (UA) Negative (NEGATIVE) 06/30/18 17:54 Urine Ketones Negative (NEGATIVE) 06/30/18 17:54 Urine Occult Blood 1+ (NEGATIVE) 06/30/18 17:54 Urine Nitrite Negative (NEGATIVE) 06/30/18 17:54 Urine Bilirubin Negative (NEGATIVE) 06/30/18 17:54 Urine Urobilinogen Normal (NORMAL) 06/30/18 17:54 Ur Leukocyte Esterase 3+ (NEGATIVE) 06/30/18 17:54 Urine RBC 3-5 /HPF (NONE SEEN) 06/30/18 17:54 Urine WBC Tntc /HPF (NONE SEEN) 06/30/18 17:54 Ur Squamous Epith Cells Rare /HPF (NEGATIVE) 06/30/18 17:54 Urine Bacteria 1+ /HPF (NEGATIVE) 06/30/18 17:54 Ur Culture Indicated? Yes/culture set up 06/30/18 17:54 - Plan (1) TIA (transient ischemic attack) Status: Acute Plan: CONTINUE ASPIRIN, PLAVIX AND STATIN. TELEMETRY, CONTINUE TO MONITOR. (2) Urinary tract infection Status: Acute Qualifiers: Urinary tract infection type: acute cystitis Hematuria presence: without hematuria Qualified Code(s): N30.00 - Acute cystitis without hematuria Plan: LEVAQUIN 750MG IV DAILY, CONTINUE TO MONITOR (3) Generalized weakness Status: Acute
[2018-07-01] MEDS ORDERED: ZyrTEC TAB 10 MG PO SCH (21:00)
[2018-07-01] MEDS ORDERED: CRESTOR TAB 10 MG PO SCH (21:00)
[2018-07-02] MEDS: NS 1000 ML 1,000 ML IV SCH (04:25)
[2018-07-02 05:23] LABS: BASOPHILS # (AUTO) 0.1 X10^3/uL (0.0-0.1); BASOPHILS % (AUTO) 1.4 % (0.2-1.0); EOSINOPHILS # (AUTO) 0.4 x10^3/uL (0.0-0.2); EOSINOPHILS % (AUTO) 6.1 % (0.9-2.9); HEMOGLOBIN 10.9 g/dL (12.0-16.0); LYMPHOCYTES # (AUTO) 2.7 X10^3/uL (1.3-2.9); LYMPHOCYTES % (AUTO) 46.1 % (21.0-51.0); MEAN CORPUSCULAR HEMOGLOBIN 30.7 pg (27.0-34.0); MEAN PLATELET VOLUME 7.3 fL (7.4-11.0); MONOCYTES # (AUTO) 0.5 x10^3/uL (0.3-0.8); MONOCYTES % (AUTO) 9.4 % (0.0-13.0); NEUTROPHILS # (AUTO) 2.2 x10^3/uL (2.2-4.8); PLATELET COUNT 302 X10^3/uL (150.0-450.0); RED BLOOD COUNT 3.54 X10^6/uL (3.5-5.4); RED CELL DISTRIBUTION WIDTH 13.6 % (11.6-16.5); WHITE BLOOD COUNT 5.8 X10^3/uL (3.6-10.0)
[2018-07-02 05:41] LABS: ALBUMIN 3.4 g/dL (3.4-5.0); ALKALINE PHOSPHATASE 57 Units/L (46-116); BLOOD UREA NITROGEN 17 mg/dL (7-18); CALCIUM 9.1 mg/dL (8.5-10.1); CARBON DIOXIDE 28.4 mmol/L (21-32); CHLORIDE 109 mmol/L (98-107); CREATININE 0.83 mg/dL (0.55-1.02); SODIUM 144 mmol/L (136-145); TOTAL PROTEIN 7.2 g/dL (6.4-8.2); eGFR NON BLACK RACES > 60 (>60)
[2018-07-02 05:49] LABS: ALANINE AMINOTRANSFERASE 24 Units/L (12-78); ASPARTATE AMINO TRANSFERASE 17 Units/L (15-37)
[2018-07-02] MEDS: SYNTHROID 88 mcg TAB PO SCH (06:03)
[2018-07-02] MEDS ORDERED: TAB-A-VITE PO SCH (09:00)
[2018-07-02] MEDS ORDERED: VITAMIN D3 PO SCH (09:00)
[2018-07-02] MEDS: PROGESTERONE MICRONIZED 200 MG PO SCH (09:42)
[2018-07-02] MEDS: PRASTERONE 50 MG PO SCH (09:43)
[2018-07-02] MEDS: LEVAQUIN PREMIX IV 750 MG 750 MG/150 ML BAG IV SCH (09:44)
[2018-07-02] MEDS: HYZAAR 50/12.5 MG PO SCH (09:44)
[2018-07-02] MEDS: EFFEXOR XR 75 MG CAP PO SCH (09:45)
[2018-07-02] MEDS: HEMOCYTE-PLUS PO SCH (09:45)
[2018-07-02] MEDS: PLAVIX PO SCH (09:45)
[2018-07-02] MEDS: SINGULAIR TAB 10 MG PO SCH (09:45)
[2018-07-02] MEDS: NORVASC TAB 5 MG PO SCH (09:45)
[2018-07-02] MEDS: NexIUM PO SCH (09:45)
[2018-07-02] MEDS: ASPIRIN PO SCH (09:45)
[2018-07-02] MEDS: LOVENOX INJ 40 MG SYR SC SCH (09:46)
[2018-07-02] MEDS: FLONASE NASAL SPRAY ENOSTRIL SCH (09:49)
[2018-07-02] MEDS: GLYBURIDE METFORMIN PO SCH (09:49)
[2018-07-02 13:11] VITALS: BP 135/60
== END 2018-07-02 13:35 | disposition home or self-care (01) ==
LOC: ER 09:06 → MED/SURG 09:06
PROVIDERS: ADMIT Internal Medicine; ATTEND Internal Medicine
DX: I10 Essential (primary) hypertension; N39.0 Urinary tract infection, site not specified; R53.1 Weakness; F41.8 Other specified anxiety disorders; R26.89 Other abnormalities of gait and mobility; G45.8 Other transient cerebral ischemic attacks and related syndromes; M19.90 Unspecified osteoarthritis, unspecified site; R47.81 Slurred speech; K21.9 Gastro-esophageal reflux disease without esophagitis; E03.8 Other specified hypothyroidism; E78.2 Mixed hyperlipidemia; E11.65 Type 2 diabetes mellitus with hyperglycemia
CPT/HCPCS: 36415; 70450; 71010; 71045; 80053; 81001; 82550; 82553; 83735; 84484; 85025; 85610; 85730; 87086; 92523; 93005; 94760; 96365; 96367; 96372; 96374; 97110; 97162; 97166; 99284; A4222; G0378; J1650; J1956; J7030

== ENCOUNTER 2019-03-14 11:30 | Observation (INO) ==
[2019-03-14 14:19] LABS: BASOPHILS % (AUTO) 0.2 % (0.2-1.0); EOSINOPHILS # (AUTO) 0.4 x10^3/uL (0.0-0.2); EOSINOPHILS % (AUTO) 5.8 % (0.9-2.9); HEMATOCRIT 33.4 % (36.0-47.0); HEMOGLOBIN 11.3 g/dL (12.0-16.0); LYMPHOCYTES # (AUTO) 2.6 X10^3/uL (1.3-2.9); LYMPHOCYTES % (AUTO) 39.4 % (21.0-51.0); MEAN CORPUSCULAR HEMOGLOBIN 30.5 pg (27.0-34.0); MEAN CORPUSCULAR HGB CONC 33.8 g/dL (33.0-35.0); MEAN CORPUSCULAR VOLUME 90.1 fL (80.0-100.0); MEAN PLATELET VOLUME 6.9 fL (7.4-11.0); MONOCYTES # (AUTO) 0.4 x10^3/uL (0.3-0.8); MONOCYTES % (AUTO) 6.4 % (0.0-13.0); NEUTROPHILS # (AUTO) 3.2 x10^3/uL (2.2-4.8); NEUTROPHILS % (AUTO) 48.2 % (42.0-75.0); PLATELET COUNT 315 X10^3/uL (150.0-450.0); RED BLOOD COUNT 3.71 X10^6/uL (3.5-5.4); RED CELL DISTRIBUTION WIDTH 13.8 % (11.6-16.5); WHITE BLOOD COUNT 6.7 X10^3/uL (3.6-10.0)
[2019-03-14 14:29] LABS: ALANINE AMINOTRANSFERASE 19 Units/L (12-78); ALBUMIN 3.9 g/dL (3.4-5.0); ALKALINE PHOSPHATASE 56 Units/L (46-116); ASPARTATE AMINO TRANSFERASE 17 Units/L (15-37); BLOOD UREA NITROGEN 24 mg/dL (7-18); CALCIUM 9.4 mg/dL (8.5-10.1); CARBON DIOXIDE 28.8 mmol/L (21-32); CHLORIDE 104 mmol/L (98-107); COR NA(FOR HYPERGLY) 139 mmol/L (136-145); CREATININE 0.98 mg/dL (0.55-1.02); SODIUM 138 mmol/L (136-145); TOTAL PROTEIN 7.7 g/dL (6.4-8.2); eGFR NON BLACK RACES 57 (>60)
[2019-03-14 14:45] VITALS: BMI 27.4
[2019-03-14] MEDS ORDERED: AFLURIA II4 or FLUARIX II4 IM ONE (14:45)
--- NOTE | 2019-03-14 14:48 | CT ---
HISTORY: Possible stroke, weakness Study: CT brain without contrast Comparison: 10/17/2018 Technique: Multiple axial images of the brain were obtained without administration of IV contrast. Dose reduction techniques including Automated Exposure Control (AEC) and adjustment of mA and kV were utilized. Findings: There is moderate to advanced cerebral volume loss and nonspecific white matter hypoattenuation likely related to chronic microvascular ischemic changes. No evidence of acute hemorrhage, midline shift, mass effect or abnormal extra-axial fluid collection. Prominence of the ventricles and cortical sulci is commensurate with volume loss. The soft tissues and osseous structures are unremarkable. The visualized paranasal sinuses are clear. IMPRESSION: 1. Chronic cerebral atrophy and nonspecific white matter changes as described without acute intracranial abnormality. If there is strong clinical suspicion for acute CVA consider MRI for further evaluation. Reported By:
[2019-03-14] MEDS: NS 1000 ML 1,000 ML IV SCH (14:53)
[2019-03-14] MEDS: ROCEPHIN VIAL 1 GRAM 1 G in NS 100 ML IV + SPIKE MINIBAG* 100 ML IV SCH (14:56)
[2019-03-14 19:09] LABS: BILIRUBIN,URINE NEGATIVE (NEGATIVE); BLOOD/HEMOGLOBIN,URINE NEGATIVE (NEGATIVE); GLUCOSE, URINE NEGATIVE (NEGATIVE); KETONES,URINE NEGATIVE (NEGATIVE); LEUKOCYTE ESTERASE ,URINE 3+ (NEGATIVE); NITRITES,URINE NEGATIVE (NEGATIVE); PH,URINE 6.5 (5.0 - 8.0); PROTEIN,URINE NEGATIVE (NEGATIVE); UROBILINOGEN,URINE NORMAL (NORMAL)
[2019-03-14 19:13] LABS: APPEARANCE,URINE CLEAR (CLEAR); COLOR,URINE YELLOW (YELLOW)
[2019-03-14 19:18] LABS: RBC,URINE NONE SEEN /HPF (0-3)
[2019-03-14 19:19] LABS: BACTERIA,URINE NEGATIVE /HPF (NEGATIVE); SQUAMOUS EPITHELIAL CELL,UR NEGATIVE /HPF (NEGATIVE)
[2019-03-15] MEDS: NS 1000 ML 1,000 ML IV SCH ×3 (03:49→17:01)
[2019-03-15 04:48] LABS: BASOPHILS # (AUTO) 0.1 X10^3/uL (0.0-0.1); BASOPHILS % (AUTO) 1.1 % (0.2-1.0); EOSINOPHILS # (AUTO) 0.4 x10^3/uL (0.0-0.2); EOSINOPHILS % (AUTO) 5.5 % (0.9-2.9); HEMATOCRIT 31.6 % (36.0-47.0); HEMOGLOBIN 10.8 g/dL (12.0-16.0); LYMPHOCYTES # (AUTO) 2.4 X10^3/uL (1.3-2.9); LYMPHOCYTES % (AUTO) 35.3 % (21.0-51.0); MEAN CORPUSCULAR HEMOGLOBIN 30.9 pg (27.0-34.0); MEAN CORPUSCULAR HGB CONC 34.3 g/dL (33.0-35.0); MEAN CORPUSCULAR VOLUME 90.2 fL (80.0-100.0); MEAN PLATELET VOLUME 7.1 fL (7.4-11.0); MONOCYTES # (AUTO) 0.6 x10^3/uL (0.3-0.8); NEUTROPHILS # (AUTO) 3.5 x10^3/uL (2.2-4.8); NEUTROPHILS % (AUTO) 50.1 % (42.0-75.0); PLATELET COUNT 282 X10^3/uL (150.0-450.0); RED BLOOD COUNT 3.51 X10^6/uL (3.5-5.4); RED CELL DISTRIBUTION WIDTH 13.9 % (11.6-16.5); WHITE BLOOD COUNT 6.9 X10^3/uL (3.6-10.0)
[2019-03-15 05:02] LABS: ALANINE AMINOTRANSFERASE 17 Units/L (12-78); ALBUMIN 3.6 g/dL (3.4-5.0); ALKALINE PHOSPHATASE 51 Units/L (46-116); ASPARTATE AMINO TRANSFERASE 14 Units/L (15-37); BLOOD UREA NITROGEN 22 mg/dL (7-18); CALCIUM 8.6 mg/dL (8.5-10.1); CARBON DIOXIDE 26.5 mmol/L (21-32); CHLORIDE 107 mmol/L (98-107); CREATININE 0.86 mg/dL (0.55-1.02); SODIUM 142 mmol/L (136-145); TOTAL PROTEIN 7.2 g/dL (6.4-8.2); eGFR NON BLACK RACES > 60 (>60)
[2019-03-15] MEDS ORDERED: POTASSIUM CHLORIDE LIQ 20 MEQ UDC PO PRN (05:38)
[2019-03-15] MEDS ORDERED: KLOR-CON PO PRN (05:38)
[2019-03-15] MEDS ORDERED: K-RIDER 10 MEQ/NS 100 ML 10 MEQ/100 ML BAG IV PRN (05:38)
[2019-03-15] MEDS ORDERED: MICRO K EXTEN CAP 10 MEQ PO PRN (05:38)
[2019-03-15] MEDS ORDERED: POTASSIUM CHL 40 MEQ/NS 0.45% 500 ML IV PRN (05:38)
[2019-03-15] MEDS ORDERED: POTASSIUM CHL 60 MEQ/NS 0.45% 500 ML IV PRN (05:38)
[2019-03-15] MEDS: K-DUR TAB 20 MEQ PO PRN (07:03)
[2019-03-15] MEDS: ROCEPHIN VIAL 1 GRAM 1 G in NS 100 ML IV + SPIKE MINIBAG* 100 ML IV SCH (09:55)
[2019-03-15] MEDS ORDERED: EFFEXOR XR 75 MG CAP PO SCH (16:00)
[2019-03-15] MEDS: SNACK - Diabetic Appropriate PO SCH (20:57)
[2019-03-15] MEDS: ZyrTEC TAB 10 MG PO SCH (20:58)
[2019-03-15] MEDS: XANAX PO PRN (20:58)
[2019-03-15] MEDS: NORVASC TAB 5 MG PO SCH (20:58)
[2019-03-15] MEDS ORDERED: CRESTOR TAB 10 MG PO SCH (21:00)
[2019-03-16] MEDS: NS 1000 ML 1,000 ML IV SCH ×2 (04:53→17:09)
[2019-03-16 05:24] LABS: BASOPHILS # (AUTO) 0.1 X10^3/uL (0.0-0.1); BASOPHILS % (AUTO) 1.2 % (0.2-1.0); EOSINOPHILS # (AUTO) 0.5 x10^3/uL (0.0-0.2); EOSINOPHILS % (AUTO) 7.4 % (0.9-2.9); HEMATOCRIT 33.6 % (36.0-47.0); HEMOGLOBIN 11.3 g/dL (12.0-16.0); LYMPHOCYTES # (AUTO) 2.3 X10^3/uL (1.3-2.9); LYMPHOCYTES % (AUTO) 37.3 % (21.0-51.0); MEAN CORPUSCULAR HEMOGLOBIN 30.6 pg (27.0-34.0); MEAN CORPUSCULAR HGB CONC 33.7 g/dL (33.0-35.0); MEAN PLATELET VOLUME 7.5 fL (7.4-11.0); MONOCYTES # (AUTO) 0.6 x10^3/uL (0.3-0.8); MONOCYTES % (AUTO) 9.5 % (0.0-13.0); NEUTROPHILS # (AUTO) 2.7 x10^3/uL (2.2-4.8); NEUTROPHILS % (AUTO) 44.6 % (42.0-75.0); PLATELET COUNT 272 X10^3/uL (150.0-450.0); RED CELL DISTRIBUTION WIDTH 13.9 % (11.6-16.5); WHITE BLOOD COUNT 6.1 X10^3/uL (3.6-10.0)
[2019-03-16 05:41] LABS: ALANINE AMINOTRANSFERASE 19 Units/L (12-78); ALBUMIN 3.7 g/dL (3.4-5.0); ALKALINE PHOSPHATASE 52 Units/L (46-116); ASPARTATE AMINO TRANSFERASE 16 Units/L (15-37); BLOOD UREA NITROGEN 16 mg/dL (7-18); CARBON DIOXIDE 26.2 mmol/L (21-32); CHLORIDE 108 mmol/L (98-107); CREATININE 0.84 mg/dL (0.55-1.02); SODIUM 145 mmol/L (136-145); TOTAL PROTEIN 7.4 g/dL (6.4-8.2); eGFR NON BLACK RACES > 60 (>60)
[2019-03-16] MEDS: SYNTHROID 88 mcg TAB PO SCH ×2 (06:36→17:02)
[2019-03-16] MEDS ORDERED: DIABETA PO SCH (07:00)
--- NOTE | 2019-03-16 07:27 | CT ---
CT HEAD WITHOUT CONTRAST CLINICAL HISTORY: 83-year-old female with slurred speech. COMPARISON: CT head 03/14/2019. TECHNIQUE: Multiple, non-contrasted axial CT images were obtained from the skull base to the cranial vertex. Coronal and sagittal reformats were performed. Dose reduction techniques including Automated Exposure Control (AEC) and adjustment of mA and kV were utilized. FINDINGS: There are no abnormal intra- or extra-axial fluid collections, midline shift, or mass effect. Burroughs-white differentiation is normal. 'Empty sella'. Global cortical involutional changes are present that are advanced for the patient's stated age. The ventricular system is enlarged but commensurate with the degree of sulcal prominence. Chronic lacunar infarctions bilateral basal ganglia, thalami and left insular lobe. Severe periventricular and supraventricular white matter hypodensity is present that is nonspecific in appearance, but most likely to represent microvascular ischemic changes. Atherosclerotic vascular calcification is present within the carotid siphons and distal vertebral arteries. Bilateral aphakia. Paranasal sinuses and mastoid air cells are clear. Debris in tympanic cavities is likely cerumen. IMPRESSION: 1. No definite evidence of an acute intracranial process. If clinical concern persists for acute stroke and it would alter patient management, consider MRI/MRA brain. 2. Chronic lacunar infarctions bilateral basal ganglia, thalami and left insular lobe. 3. Severe microvascular white matter ischemic changes, with associated volume loss. Reported By:
[2019-03-16] MEDS ORDERED: GLUCOPHAGE ONE (08:03)
[2019-03-16] MEDS: ROCEPHIN VIAL 1 GRAM 1 G in NS 100 ML IV + SPIKE MINIBAG* 100 ML IV SCH (09:20)
[2019-03-16] MEDS: HYZAAR 50/12.5 MG PO SCH (09:21)
[2019-03-16] MEDS: SINGULAIR TAB 10 MG PO SCH (09:21)
[2019-03-16] MEDS: EFFEXOR XR 75 MG CAP PO SCH (09:21)
[2019-03-16] MEDS: ECOTRIN TAB 325 MG PO SCH (09:22)
[2019-03-16] MEDS: NORVASC TAB 5 MG PO SCH ×2 (09:22→20:44)
[2019-03-16] MEDS: GLUCOPHAGE PO SCH ×2 (09:23→17:03)
[2019-03-16] MEDS: PLAVIX PO SCH (09:25)
[2019-03-16] MEDS: NexIUM PO SCH (09:26)
[2019-03-16] MEDS ORDERED: TYLENOL 325 MG TAB PO PRN (17:03)
[2019-03-16] MEDS ORDERED: TYLENOL 325 MG TAB PO ONE (17:06)
[2019-03-16] MEDS: XANAX PO PRN ×2 (20:42→20:43)
[2019-03-16] MEDS: ZyrTEC TAB 10 MG PO SCH (20:43)
--- NOTE | 2019-03-16 20:53 | DR.UPDATE ---
H&P Update History and Physical Update: History and Physical reviewed and patient examined. Changes noted: Yes with the following: WAS SEEN IN THE OFFICE TODAY DUE TO COMPLAINTS OF ALTERED MENTAL STATUS, WEAKNESS, AND SINUSITIS. SHE REPORTED DIZZINESS AND WEAKNESS FOR THE PAST TWO WEEKS. WE ADMITTED PATIENT FOR FURTHER EVALUATION AND TREATMENT. ON ADMISSION, WE PLAN TO OBTAIN LABS, URINALYSIS, AND A BRAIN CT. WE WILL START NORMAL SALINE AT 80ML/HR, IV ROCEPHIN, AND WE WILL RESUME HER HOME MEDICATIONS. OTHERWISE, WE PLAN TO FOLLOW UP WITH AM LABS AND CONTINUE TO MONITOR. Prescription drug monitoring program results: PDMP was not reviewed
[2019-03-16] MEDS: SNACK - Diabetic Appropriate PO SCH (21:00)
[2019-03-16] MEDS ORDERED: CRESTOR TAB 10 MG PO SCH (21:00)
[2019-03-17 04:53] LABS: BASOPHILS # (AUTO) 0.1 X10^3/uL (0.0-0.1); BASOPHILS % (AUTO) 2.3 % (0.2-1.0); EOSINOPHILS # (AUTO) 0.5 x10^3/uL (0.0-0.2); EOSINOPHILS % (AUTO) 7.6 % (0.9-2.9); HEMATOCRIT 31.7 % (36.0-47.0); HEMOGLOBIN 10.8 g/dL (12.0-16.0); LYMPHOCYTES # (AUTO) 2.4 X10^3/uL (1.3-2.9); LYMPHOCYTES % (AUTO) 36.8 % (21.0-51.0); MEAN CORPUSCULAR HEMOGLOBIN 30.8 pg (27.0-34.0); MEAN CORPUSCULAR HGB CONC 34.2 g/dL (33.0-35.0); MEAN CORPUSCULAR VOLUME 90.2 fL (80.0-100.0); MEAN PLATELET VOLUME 7.2 fL (7.4-11.0); MONOCYTES # (AUTO) 0.6 x10^3/uL (0.3-0.8); MONOCYTES % (AUTO) 9.1 % (0.0-13.0); NEUTROPHILS # (AUTO) 2.8 x10^3/uL (2.2-4.8); NEUTROPHILS % (AUTO) 44.2 % (42.0-75.0); PLATELET COUNT 285 X10^3/uL (150.0-450.0); RED BLOOD COUNT 3.52 X10^6/uL (3.5-5.4); RED CELL DISTRIBUTION WIDTH 13.8 % (11.6-16.5); WHITE BLOOD COUNT 6.4 X10^3/uL (3.6-10.0)
[2019-03-17 05:11] LABS: ALANINE AMINOTRANSFERASE 18 Units/L (12-78); ALBUMIN 3.5 g/dL (3.4-5.0); ALKALINE PHOSPHATASE 50 Units/L (46-116); ASPARTATE AMINO TRANSFERASE 16 Units/L (15-37); BLOOD UREA NITROGEN 18 mg/dL (7-18); CALCIUM 9.1 mg/dL (8.5-10.1); CARBON DIOXIDE 26.6 mmol/L (21-32); CHLORIDE 108 mmol/L (98-107); SODIUM 143 mmol/L (136-145); TOTAL PROTEIN 7.1 g/dL (6.4-8.2); eGFR NON BLACK RACES > 60 (>60)
[2019-03-17] MEDS: NS 1000 ML 1,000 ML IV SCH ×2 (06:27→08:47)
[2019-03-17] MEDS ORDERED: GLUCOPHAGE ONE (08:02)
[2019-03-17] MEDS: ROCEPHIN VIAL 1 GRAM 1 G in NS 100 ML IV + SPIKE MINIBAG* 100 ML IV SCH (08:41)
[2019-03-17] MEDS: PLAVIX PO SCH (08:42)
[2019-03-17] MEDS: HYZAAR 50/12.5 MG PO SCH (08:42)
[2019-03-17] MEDS: EFFEXOR XR 75 MG CAP PO SCH (08:43)
[2019-03-17] MEDS: SINGULAIR TAB 10 MG PO SCH (08:43)
[2019-03-17] MEDS: NORVASC TAB 5 MG PO SCH (08:44)
[2019-03-17] MEDS: ECOTRIN TAB 325 MG PO SCH (08:44)
[2019-03-17] MEDS: NexIUM PO SCH (08:44)
[2019-03-17] MEDS: K-DUR TAB 20 MEQ PO PRN (08:44)
[2019-03-17] MEDS: GLUCOPHAGE PO SCH (08:44)
[2019-03-17] MEDS ORDERED: PHARMACY CONSULT - DOSE _____ XX SCH (09:00)
[2019-03-17 12:21] VITALS: BP 139/60
== END 2019-03-17 13:45 | disposition home or self-care (01) ==
LOC: MED/SURG
PROVIDERS: ADMIT Internal Medicine; ATTEND Internal Medicine
DX: R53.1 Weakness; R26.2 Difficulty in walking, not elsewhere classified; R41.82 Altered mental status, unspecified; J01.90 Acute sinusitis, unspecified
CPT/HCPCS: 36415; 70450; 80053; 81001; 83735; 85025; 90674; 90686; 96367; 96372; 97162; A4216; A4222; G0378; J0696; J3490; J7030; J7050

== ENCOUNTER 2019-04-08 11:35 | Observation (INO) ==
[2019-04-08 11:53] VITALS: BMI 28.3
--- NOTE | 2019-04-08 12:01 | CT ---
CT head without contrast Indication: History of TIA and confusion Technique: Helical CT images of the brain were obtained without IV contrast. Reformatted images in the coronal and sagittal planes were also generated for review. Comparison: 03/16/2019 Findings: There is stable moderate generalized atrophy with commensurate ventricular and sulcal enlargement. There are patchy and confluent areas of periventricular and subcortical white matter hypoattenuation, which are nonspecific but appear unchanged and are likely on the basis of chronic small vessel ischemic disease. Empty sella noted. Burroughs-white differentiation is maintained. No visible acute infarction is identified. There is no intracranial hemorrhage, extra-axial collection, hydrocephalus or mass. Visualized paranasal sinuses and mastoid air cells are clear. Imaged extracranial structures are grossly unremarkable. Impression: No acute intracranial abnormality. Stable generalized atrophy and moderate microangiopathy. Reported By:
[2019-04-08 12:16] LABS: BASOPHILS # (AUTO) 0.1 X10^3/uL (0.0-0.1); BASOPHILS % (AUTO) 0.9 % (0.2-1.0); EOSINOPHILS # (AUTO) 0.5 x10^3/uL (0.0-0.2); EOSINOPHILS % (AUTO) 5.9 % (0.9-2.9); HEMOGLOBIN 11.4 g/dL (12.0-16.0); LYMPHOCYTES # (AUTO) 2.2 X10^3/uL (1.3-2.9); LYMPHOCYTES % (AUTO) 26.5 % (21.0-51.0); MEAN CORPUSCULAR HEMOGLOBIN 30.4 pg (27.0-34.0); MEAN CORPUSCULAR HGB CONC 33.6 g/dL (33.0-35.0); MEAN CORPUSCULAR VOLUME 90.4 fL (80.0-100.0); MEAN PLATELET VOLUME 6.6 fL (7.4-11.0); MONOCYTES # (AUTO) 0.6 x10^3/uL (0.3-0.8); MONOCYTES % (AUTO) 6.7 % (0.0-13.0); PLATELET COUNT 280 X10^3/uL (150.0-450.0); RED BLOOD COUNT 3.76 X10^6/uL (3.5-5.4); RED CELL DISTRIBUTION WIDTH 13.9 % (11.6-16.5); WHITE BLOOD COUNT 8.2 X10^3/uL (3.6-10.0)
--- NOTE | 2019-04-08 12:22 | DR.WEAKNES ---
HPI Time Seen Time Seen by Provider: 04/08/19 11:55 Primary Care Physician Primary Care Physician: PETE Complaints Chief Complaint:: "TROUBLE GETTING SOME WORDS OUT, SOME CONFUSION STARTED 3 MINS AGO STATED BY FAMILY" Self Treatment fo Chief Complaint: NONE Source History Provided: Patient and Family Member Mode of Arrival Mode of Arrival: Wheelchair Timing Onset of Chief Complaint: 04/08/19 Symptom Onset: Known Onset of Symptoms Start Date: 04/08/19 Onset of Symptoms Start Time: 11:32 PMH PMH Past Medical History: Yes Past Medical History: Diabetes, Hypertension and Hypothyroidism Past Medical History Comment: HX OF TIA Past Surgical History: Yes Surgical History: Hysterectomy and Other Past Surgical History Comment: CTR, HEMORROIDECTOMY, SPINAL CORD STIMULATOR Family History History of Family Medical Conditions: No Family Medical History: [place] and Coronary Artery Disease Social History Does patient currently use any type of tobacco product: No Have you used tobacco products in the last 12 months: No Type of Tobacco Use: None Does any household member use tobacco: No Alcohol Use: None Do you use any recreational Drugs:: No Lives With: Family Lives Where: Home infectious screening In the last 2 months have you had wt loss of >10#?: NO Have you had fever, night sweats or hemotysis?: No Have you traveled outside the country in the last 6 months?: No Isolation: Standard PE Vital Signs Vitals: Temperature 97.8 F Pulse Rate 72 Respiratory Rate 22 Blood Pressure [Left Arm] 139/58 Blood Pressure [Right Arm] 139/60 Blood Pressure 131/60 O2 Sat by Pulse Oximetry 96 ROR Labs Reviewed Result Diagrams: 04/08/19 12:06 04/08/19 12:06 Laboratory: WBC 8.2 X10^3/uL (3.6-10.0) 04/08/19 12:06 RBC 3.76 X10^6/uL (3.5-5.4) 04/08/19 12:06 Hgb 11.4 g/dL (12.0-16.0) L 04/08/19 12:06 Hct 34.0 % (36.0-47.0) L 04/08/19 12:06 MCV 90.4 fL (80.0-100.0) 04/08/19 12:06 MCH 30.4 pg (27.0-34.0) 04/08/19 12:06 MCHC 33.6 g/dL (33.0-35.0) 04/08/19 12:06 RDW 13.9 % (11.6-16.5) 04/08/19 12:06 Plt Count 280 X10^3/uL (150.0-450.0) 04/08/19 12:06 MPV 6.6 fL (7.4-11.0) L 04/08/19 12:06 Neut % (Auto) 60.0 % (42.0-75.0) 04/08/19 12:06 Lymph % (Auto) 26.5 % (21.0-51.0) 04/08/19 12:06 [place] % (Auto) 6.7 % (0.0-13.0) 04/08/19 12:06 Eos % (Auto) 5.9 % (0.9-2.9) H 04/08/19 12:06 Baso % (Auto) 0.9 % (0.2-1.0) 04/08/19 12:06 Neut # (Auto) 5.0 x10^3/uL (2.2-4.8) H 04/08/19 12:06 Lymph # (Auto) 2.2 X10^3/uL (1.3-2.9) 04/08/19 12:06 [place] # (Auto) 0.6 x10^3/uL (0.3-0.8) 04/08/19 12:06 Eos # (Auto) 0.5 x10^3/uL (0.0-0.2) H 04/08/19 12:06 Baso # (Auto) 0.1 X10^3/uL (0.0-0.1) 04/08/19 12:06 Absolute Nucleated RBC 0.0 /100WBC 04/08/19 12:06 PT 12.8 SECONDS (11.8-14.3) 04/08/19 12:06 INR Target Range - 04/08/19 12:06 INR 1.00 (0.8-1.3) 04/08/19 12:06 APTT 27.4 SECONDS (22.9-36.5) 04/08/19 12:06 PTT Comment - 04/08/19 12:06 Fibrinogen 303 mg/dL (239-489) 04/08/19 12:06 Sodium 139 mmol/L (136-145) 04/08/19 12:06 Corrected Sodium 141 mmol/L (136-145) 04/08/19 12:06 Potassium 4.4 mmol/L (3.5-5.1) 04/08/19 12:06 Chloride 103 mmol/L (98-107) 04/08/19 12:06 Carbon Dioxide 28.3 mmol/L (21-32) 04/08/19 12:06 BUN 18 mg/dL (7-18) 04/08/19 12:06 Creatinine 0.98 mg/dL (0.55-1.02) 04/08/19 12:06 Est GFR (MDRD) Af Amer > 60 (>60) 04/08/19 12:06 Est GFR (MDRD) Non-Af 57 (>60) L 04/08/19 12:06 Glucose 170 mg/dL (65-99) H 04/08/19 12:06 Calcium 9.0 mg/dL (8.5-10.1) 04/08/19 12:06 Corrected Calcium TNP 04/08/19 12:06 Magnesium 2.1 mg/dL (1.7-2.9) 04/08/19 12:06 Total Bilirubin 0.30 mg/dL (0.2-1.0) 04/08/19 12:06 AST 16 Units/L (15-37) 04/08/19 12:06 ALT 21 Units/L (12-78) 04/08/19 12:06 Alkaline Phosphatase 63 Units/L (46-116) 04/08/19 12:06 Creatine Kinase 172 Units/L (26-192) 04/08/19 12:06 CK-MB (CK-2) 3.5 ng/mL (0-4.0) 04/08/19 12:06 CK/CKMB % Calc 2.0 % (<4) 04/08/19 12:06 Troponin I < 0.02 ng/mL (0-1.5) 04/08/19 12:06 Total Protein 7.7 g/dL (6.4-8.2) 04/08/19 12:06 Albumin 3.8 g/dL (3.4-5.0) 04/08/19 12:06 Globulin 3.9 g/dL (2.5-4.5) 04/08/19 12:06 Albumin/Globulin Ratio 1.0 Ratio (1.1-2.1) L 04/08/19 12:06 Opioid Opioid Risk Tool Age (Wiliam box if 16-45): No History of Preadolescent Sexual Abuse: No Total: 0 Total Score Risk Category: Low Risk Copyright: Ezekiel REINOSO predicting aberrant behaviors
[2019-04-08 12:27] LABS: ALANINE AMINOTRANSFERASE 21 Units/L (12-78); ALBUMIN 3.8 g/dL (3.4-5.0); ALKALINE PHOSPHATASE 63 Units/L (46-116); ASPARTATE AMINO TRANSFERASE 16 Units/L (15-37); BLOOD UREA NITROGEN 18 mg/dL (7-18); CARBON DIOXIDE 28.3 mmol/L (21-32); CHLORIDE 103 mmol/L (98-107); COR NA(FOR HYPERGLY) 141 mmol/L (136-145); CREATININE 0.98 mg/dL (0.55-1.02); SODIUM 139 mmol/L (136-145); TOTAL PROTEIN 7.7 g/dL (6.4-8.2); eGFR NON BLACK RACES 57 (>60)
--- NOTE | 2019-04-08 12:51 | RAD ---
History: Shortness of breath Study: AP chest Comparison: June 30, 2018 Findings: The lungs are clear. There is partial eventration of the right hemidiaphragm anteriorly. There is an apparent large right cardiophrenic fat pad. There are dorsal column stimulator wire leads overlying the midthoracic spine as before. There is no edema or effusion. Impression: No evidence for acute cardiopulmonary disease Reported By:
[2019-04-08 12:59] LABS: CREATINE KINASE 172 Units/L (26-192); CREATINE KINASE MB 3.5 ng/mL (0-4.0); MAGNESIUM 2.1 mg/dL (1.7-2.9); TROPONIN I < 0.02 ng/mL (0-1.5)
[2019-04-08] MEDS ORDERED: NS 1000 ML 1,000 ML ONE (14:03)
[2019-04-08] MEDS: NS 1000 ML 1,000 ML IV SCH (14:12)
[2019-04-08 17:31] LABS: CREATINE KINASE 153 Units/L (26-192); CREATINE KINASE MB 3.1 ng/mL (0-4.0); TROPONIN I < 0.02 ng/mL (0-1.5)
[2019-04-08 17:53] LABS: BILIRUBIN,URINE NEGATIVE (NEGATIVE); BLOOD/HEMOGLOBIN,URINE NEGATIVE (NEGATIVE); GLUCOSE, URINE NEGATIVE (NEGATIVE); KETONES,URINE NEGATIVE (NEGATIVE); LEUKOCYTE ESTERASE ,URINE NEGATIVE (NEGATIVE); NITRITES,URINE NEGATIVE (NEGATIVE); PROTEIN,URINE NEGATIVE (NEGATIVE); UROBILINOGEN,URINE NORMAL (NORMAL)
[2019-04-08 17:56] LABS: APPEARANCE,URINE CLEAR (CLEAR); COLOR,URINE PALE YELLOW (YELLOW)
[2019-04-08] MEDS ORDERED: TYLENOL 325 MG TAB PO PRN (22:36)
[2019-04-08 23:39] LABS: CKMB % 1.7 % (<4); CREATINE KINASE 145 Units/L (26-192); CREATINE KINASE MB 2.5 ng/mL (0-4.0); TROPONIN I < 0.02 ng/mL (0-1.5)
[2019-04-09] MEDS: NS 1000 ML 1,000 ML IV SCH ×2 (03:22→19:03)
[2019-04-09 06:12] LABS: BASOPHILS # (AUTO) 0.1 X10^3/uL (0.0-0.1); EOSINOPHILS # (AUTO) 0.5 x10^3/uL (0.0-0.2); EOSINOPHILS % (AUTO) 7.3 % (0.9-2.9); HEMATOCRIT 32.6 % (36.0-47.0); HEMOGLOBIN 11.1 g/dL (12.0-16.0); LYMPHOCYTES # (AUTO) 2.7 X10^3/uL (1.3-2.9); LYMPHOCYTES % (AUTO) 39.9 % (21.0-51.0); MEAN CORPUSCULAR HEMOGLOBIN 30.5 pg (27.0-34.0); MEAN CORPUSCULAR HGB CONC 34.1 g/dL (33.0-35.0); MEAN CORPUSCULAR VOLUME 89.5 fL (80.0-100.0); MEAN PLATELET VOLUME 6.8 fL (7.4-11.0); MONOCYTES # (AUTO) 0.7 x10^3/uL (0.3-0.8); MONOCYTES % (AUTO) 9.6 % (0.0-13.0); NEUTROPHILS # (AUTO) 2.9 x10^3/uL (2.2-4.8); NEUTROPHILS % (AUTO) 42.2 % (42.0-75.0); PLATELET COUNT 275 X10^3/uL (150.0-450.0); RED BLOOD COUNT 3.64 X10^6/uL (3.5-5.4); RED CELL DISTRIBUTION WIDTH 14.1 % (11.6-16.5); WHITE BLOOD COUNT 6.8 X10^3/uL (3.6-10.0)
[2019-04-09 06:20] LABS: ALANINE AMINOTRANSFERASE 18 Units/L (12-78); ALBUMIN 3.5 g/dL (3.4-5.0); ALKALINE PHOSPHATASE 55 Units/L (46-116); ASPARTATE AMINO TRANSFERASE 13 Units/L (15-37); BLOOD UREA NITROGEN 18 mg/dL (7-18); CALCIUM 8.8 mg/dL (8.5-10.1); CARBON DIOXIDE 25.6 mmol/L (21-32); CHLORIDE 105 mmol/L (98-107); COR NA(FOR HYPERGLY) 141 mmol/L (136-145); CREATININE 0.83 mg/dL (0.55-1.02); SODIUM 140 mmol/L (136-145); TOTAL PROTEIN 7.2 g/dL (6.4-8.2); eGFR NON BLACK RACES > 60 (>60)
[2019-04-09] MEDS ORDERED: XANAX PO PRN (10:54)
--- NOTE | 2019-04-09 11:22 | DR.UPDATE ---
H&P Update History and Physical Update: History and Physical reviewed and patient examined. Changes noted: Yes with the following: H&P WAS COMPLETED IN THE OFFICE ON 03/26/19. AT THAT TIME, SHE WAS FOLLOWING UP FROM A RECENT HOSPITAL STAY FOR A TIA. SHE IS CURRENTLY TAKING ASPIRIN AND PLAVIX. SHE PRESENTED TO THE ER TODAY WITH COMPLAINTS OF SLURRED SPEECH AND CONFUSTION. SYMPTOMS REPORTEDLY GOT WORSE AROUND 30 MINUTES PRIOR TO ARRIVAL. ON ARRIVAL TO THE ER, VITALS WERE 97.8-75-20-95%-139/65. LABS WERE OBTAINED. ABNORMAL LAB VALUES INCLUDE THE FOLLOWING: HGB 11.4, HCT 34.0, GLUCOSE 170, CARDIAC ENZYMES WITHIN NORMAL LIMITS. URINALYSIS IS UNREMARKABLE. A BRAIN CT WAS OBTAINED AND REVEALED: No acute intracranial abnormality. Stable generalized atrophy and moderate microangiopathy. EKG REVEALED: SINUS RHYTHM WITH HR 68. CHEST XRAY REVEALED: NO EVIDENCE FOR ACUTE CARDIOPULMONARY DISEASE. SHE WAS STARTED ON NORMAL SALINE AT [facility] AND HOME MEDICATIONS WERE RESUMED. OTHERWISE, WE PLANNED TO FOLLOW UP WITH AM LABS AND CONTINUE TO MONITOR.
[2019-04-09] MEDS: ELIQUIS PO SCH ×2 (11:37→20:42)
[2019-04-09] MEDS: ASPIRIN PO SCH (11:38)
[2019-04-09] MEDS: COENZYME Q10 200 MG PO SCH (11:39)
[2019-04-09] MEDS: EFFEXOR XR 75 MG CAP PO SCH (11:40)
[2019-04-09] MEDS: FOLIC ACID VIT B6 VIT B12 PO SCH (11:40)
[2019-04-09] MEDS: HEMOCYTE-PLUS PO SCH (11:41)
[2019-04-09] MEDS: GLYBURIDE METFORMIN PO SCH ×2 (11:41→20:48)
[2019-04-09] MEDS: NexIUM PO SCH (11:42)
[2019-04-09] MEDS: MAG-OX TAB PO SCH (11:42)
[2019-04-09] MEDS: PRASTERONE 50 MG PO SCH (11:43)
[2019-04-09] MEDS: SINGULAIR TAB 10 MG PO SCH ×2 (11:44→20:43)
[2019-04-09] MEDS: PROGESTERONE MICRONIZED 200 MG PO SCH (11:44)
[2019-04-09] MEDS: SYNTHROID 88 mcg TAB PO SCH (11:44)
[2019-04-09] MEDS: VITAMIN D3 PO SCH (11:46)
[2019-04-09] MEDS: NORVASC TAB 5 MG PO SCH ×2 (13:11→20:43)
--- NOTE | 2019-04-09 20:01 | PCM.PROG ---
Progress Note - Progress Note for Day of Date of Exam: 04/09/19 - Subjective Subjective: WAS ADMITTED FOR ALTERED MENTAL STATUS. SHE HAS A RECENT HISTORY OF A TIA. TODAY, SHE IS ALERT AND ORINETED, LYING IN BED ON MORNING ROUNDS. SHE CONTINUES WITH COMPLAINTS OF WEAKNESS, BUT DENIES SLURRED SPEECH TODAY. ON EXAMINATION, HEART IS REGULAR IN RATE AND RHYTHM. BILATERAL LUNGS ARE NOTED WITH DIMINISHED LUNG SOUNDS THROUGHOUT. ABDOMEN IS ROUND, SOFT, AND NON- TENDER WITH NORMAL BOWEL SOUNDS NOTED IN ALL QUADRANTS. HER VITALS THIS MORNING ARE: 98.5-76-22-96%-143/65. LABS WERE OBTAINED. ABNORMAL LAB VALUES INCLUDE THE FOLLOWING: HGB 11.4, HCT 34.0, GLUCOSE 134, AST 13. CARDIAC ENZYMES HAVE BEEN WITHIN NORMAL LIMITS. SHE IS CURRENTLY RECEIVING NORMAL SALINE AT [facility]. WE WILL D ISCONTINUE HER PLAVIX AND START ELIQUIS 2.5MG PO BID. OTHERWISE, WE WILL CONTINUE HER REGULAR MEDICATIONS. WE PLAN TO FOLLOW UP WITH AM LABS AND CONTINUE TO MONITOR. - Past Medical Family Social History Past Med/Fam/Surg Hx: No changes since H&P Allergies: Allergies codeine Allergy (Verified 04/07/18 10:02) Penicillins Allergy (Verified 04/07/18 10:02) - Review of Systems ROS: No change since H&P - Vital Signs and I&O's Vital Signs: Temperature 98.7 F Pulse Rate [Left Brachial] 71 Pulse Rate 73 Respiratory Rate 24 Blood Pressure [Left Arm] 145/64 Blood Pressure [Right Arm] 131/60 Blood Pressure 135/65 O2 Sat by Pulse Oximetry 95 Intake and Output: Intake & Output 04/07/19 04/08/19 04/09/19 04/10/19 11:59 11:59 11:59 11:59 Intake Total 1035 / 1035 960 / 960 Balance 1035 / 1035 960 / 960 - Physical Exam Oriented: Normal Eyes: Normal Ear: Normal Nose: Normal Throat: Normal Respiratory: Generalized, Diminished Cardiovascular: Normal : Normal Auscultation: Bowel Sounds: Normal Palpation: Normal Tenderness: Normal Skin: Normal Musculoskeletal: Normal Psychiatric: Normal Mood Description: Calm Affect: Normal Speech Pattern: Clear, Appropriate - Laboratory and Diagnostics Result Diagrams: 04/09/19 05:45 04/09/19 05:45 Labs: Laboratory WBC 6.8 X10^3/uL (3.6-10.0) 04/09/19 05:45 RBC 3.64 X10^6/uL (3.5-5.4) 04/09/19 05:45 Hgb 11.1 g/dL (12.0-16.0) L 04/09/19 05:45 Hct 32.6 % (36.0-47.0) L 04/09/19 05:45 MCV 89.5 fL (80.0-100.0) 04/09/19 05:45 MCH 30.5 pg (27.0-34.0) 04/09/19 05:45 MCHC 34.1 g/dL (33.0-35.0) 04/09/19 05:45 RDW 14.1 % (11.6-16.5) 04/09/19 05:45 Plt Count 275 X10^3/uL (150.0-450.0) 04/09/19 05:45 MPV 6.8 fL (7.4-11.0) L 04/09/19 05:45 Neut % (Auto) 42.2 % (42.0-75.0) 04/09/19 05:45 Lymph % (Auto) 39.9 % (21.0-51.0) 04/09/19 05:45 [place] % (Auto) 9.6 % (0.0-13.0) 04/09/19 05:45 Eos % (Auto) 7.3 % (0.9-2.9) H 04/09/19 05:45 Baso % (Auto) 1.0 % (0.2-1.0) 04/09/19 05:45 Neut # (Auto) 2.9 x10^3/uL (2.2-4.8) 04/09/19 05:45 Lymph # (Auto) 2.7 X10^3/uL (1.3-2.9) 04/09/19 05:45 [place] # (Auto) 0.7 x10^3/uL (0.3-0.8) 04/09/19 05:45 Eos # (Auto) 0.5 x10^3/uL (0.0-0.2) H 04/09/19 05:45 Baso # (Auto) 0.1 X10^3/uL (0.0-0.1) 04/09/19 05:45 Absolute Nucleated RBC 0.1 /100WBC 04/09/19 05:45 PT 12.8 SECONDS (11.8-14.3) 04/08/19 12:06 INR Target Range - 04/08/19 12:06 INR 1.00 (0.8-1.3) 04/08/19 12:06 APTT 27.4 SECONDS (22.9-36.5) 04/08/19 12:06 PTT Comment - 04/08/19 12:06 Fibrinogen 303 mg/dL (239-489) 04/08/19 12:06 Sodium 140 mmol/L (136-145) 04/09/19 05:45 Corrected Sodium 141 mmol/L (136-145) 04/09/19 05:45 Potassium 3.7 mmol/L (3.5-5.1) 04/09/19 05:45 Chloride 105 mmol/L (98-107) 04/09/19 05:45 Carbon Dioxide 25.6 mmol/L (21-32) 04/09/19 05:45 BUN 18 mg/dL (7-18) 04/09/19 05:45 Creatinine 0.83 mg/dL (0.55-1.02) 04/09/19 05:45 Est GFR (MDRD) Af Amer > 60 (>60) 04/09/19 05:45 Est GFR (MDRD) Non-Af > 60 (>60) 04/09/19 05:45 Glucose 134 mg/dL (65-99) H 04/09/19 05:45 Calcium 8.8 mg/dL (8.5-10.1) 04/09/19 05:45 Corrected Calcium TNP 04/09/19 05:45 Magnesium 2.1 mg/dL (1.7-2.9) 04/08/19 12:06 Total Bilirubin 0.20 mg/dL (0.2-1.0) 04/09/19 05:45 AST 13 Units/L (15-37) L 04/09/19 05:45 ALT 18 Units/L (12-78) 04/09/19 05:45 Alkaline Phosphatase 55 Units/L (46-116) 04/09/19 05:45 Creatine Kinase 145 Units/L (26-192) 04/08/19 23:06 CK-MB (CK-2) 2.5 ng/mL (0-4.0) 04/08/19 23:06 CK/CKMB % Calc 1.7 % (<4) 04/08/19 23:06 Troponin I < 0.02 ng/mL (0-1.5) 04/08/19 23:06 Total Protein 7.2 g/dL (6.4-8.2) 04/09/19 05:45 Albumin 3.5 g/dL (3.4-5.0) 04/09/19 05:45 Globulin 3.7 g/dL (2.5-4.5) 04/09/19 05:45 Albumin/Globulin Ratio 0.9 Ratio (1.1-2.1) L 04/09/19 05:45 Specimen Type Clean catch urine 04/08/19 17:05 Urine Color Pale yellow (YELLOW) 04/08/19 17:05 Urine Appearance Clear (CLEAR) 04/08/19 17:05 Urine pH 7.0 (5.0 - 8.0) 04/08/19 17:05 Ur Specific [place] 1.015 (1.000-1.030) 04/08/19 17:05 Urine Protein Negative (NEGATIVE) 04/08/19 17:05 Urine Glucose (UA) Negative (NEGATIVE) 04/08/19 17:05 Urine Ketones Negative (NEGATIVE) 04/08/19 17:05 Urine Occult Blood Negative (NEGATIVE) 04/08/19 17:05 Urine Nitrite Negative (NEGATIVE) 04/08/19 17:05 Urine Bilirubin Negative (NEGATIVE) 04/08/19 17:05 Urine Urobilinogen Normal (NORMAL) 04/08/19 17:05 Ur Leukocyte Esterase Negative (NEGATIVE) 04/08/19 17:05 - Plan (1) Altered mental state Status: Acute (2) Slurred speech Status: Acute (3) Generalized weakness Status: Acute
[2019-04-09] MEDS ORDERED: CRESTOR TAB 10 MG PO SCH (21:00)
[2019-04-09] MEDS ORDERED: ZyrTEC TAB 10 MG PO SCH (21:00)
[2019-04-10 06:37] LABS: BASOPHILS # (AUTO) 0.1 X10^3/uL (0.0-0.1); BASOPHILS % (AUTO) 0.9 % (0.2-1.0); EOSINOPHILS # (AUTO) 0.5 x10^3/uL (0.0-0.2); EOSINOPHILS % (AUTO) 4.6 % (0.9-2.9); HEMOGLOBIN 11.3 g/dL (12.0-16.0); LYMPHOCYTES # (AUTO) 2.6 X10^3/uL (1.3-2.9); LYMPHOCYTES % (AUTO) 26.2 % (21.0-51.0); MEAN CORPUSCULAR HEMOGLOBIN 30.7 pg (27.0-34.0); MEAN CORPUSCULAR HGB CONC 34.3 g/dL (33.0-35.0); MEAN CORPUSCULAR VOLUME 89.4 fL (80.0-100.0); MEAN PLATELET VOLUME 6.9 fL (7.4-11.0); MONOCYTES # (AUTO) 0.8 x10^3/uL (0.3-0.8); MONOCYTES % (AUTO) 7.5 % (0.0-13.0); NEUTROPHILS # (AUTO) 6.1 x10^3/uL (2.2-4.8); NEUTROPHILS % (AUTO) 60.8 % (42.0-75.0); PLATELET COUNT 286 X10^3/uL (150.0-450.0); RED BLOOD COUNT 3.69 X10^6/uL (3.5-5.4); WHITE BLOOD COUNT 10.1 X10^3/uL (3.6-10.0)
[2019-04-10 06:52] LABS: ALANINE AMINOTRANSFERASE 20 Units/L (12-78); ALBUMIN 3.6 g/dL (3.4-5.0); ALKALINE PHOSPHATASE 58 Units/L (46-116); ASPARTATE AMINO TRANSFERASE 16 Units/L (15-37); BLOOD UREA NITROGEN 13 mg/dL (7-18); CALCIUM 9.2 mg/dL (8.5-10.1); CARBON DIOXIDE 24.9 mmol/L (21-32); CHLORIDE 105 mmol/L (98-107); CREATININE 0.73 mg/dL (0.55-1.02); SODIUM 141 mmol/L (136-145); TOTAL PROTEIN 7.4 g/dL (6.4-8.2); eGFR NON BLACK RACES > 60 (>60)
[2019-04-10] MEDS: ASPIRIN PO SCH (09:07)
[2019-04-10] MEDS: FOLIC ACID VIT B6 VIT B12 PO SCH (09:08)
[2019-04-10] MEDS: ELIQUIS PO SCH (09:08)
[2019-04-10] MEDS: COENZYME Q10 200 MG PO SCH (09:08)
[2019-04-10] MEDS: EFFEXOR XR 75 MG CAP PO SCH (09:08)
[2019-04-10] MEDS: GLYBURIDE METFORMIN PO SCH (09:09)
[2019-04-10] MEDS: NexIUM PO SCH (09:09)
[2019-04-10] MEDS: HEMOCYTE-PLUS PO SCH (09:09)
[2019-04-10] MEDS: MAG-OX TAB PO SCH (09:09)
[2019-04-10] MEDS: PRASTERONE 50 MG PO SCH (09:10)
[2019-04-10] MEDS: PROGESTERONE MICRONIZED 200 MG PO SCH (09:10)
[2019-04-10 09:56] VITALS: BP 115/56
--- NOTE | 2019-04-10 10:34 | RAD ---
History: Shortness of breath and cough Study: Portable upright AP chest Comparison: April 08, 2019 Findings: There is no significant change. The lungs are grossly clear. There is elevation of the right hemidiaphragm. The heart size is normal. Dorsal column stimulator wires are visualized. There is no edema or effusion. Impression: No evidence for acute cardiopulmonary disease Reported By:
[2019-04-10] MEDS: NORVASC TAB 5 MG PO SCH (11:41)
[2019-04-10] MEDS: VITAMIN D3 PO SCH (11:41)
[2019-04-10] MEDS: SYNTHROID 88 mcg TAB PO SCH (11:41)
== END 2019-04-10 14:30 | disposition home or self-care (01) ==
LOC: SUPCPDRO → ER 11:37 → ICU 11:37
PROVIDERS: ADMIT Internal Medicine; ATTEND Internal Medicine
DX: R40.4 Transient alteration of awareness; F41.8 Other specified anxiety disorders; E11.65 Type 2 diabetes mellitus with hyperglycemia; Z79.01 Long term (current) use of anticoagulants; E03.8 Other specified hypothyroidism; R47.81 Slurred speech; R94.31 Abnormal electrocardiogram [ECG] [EKG]; Z23 Encounter for immunization; Z86.73 Personal history of transient ischemic attack (TIA), and cerebral infarction without residual deficits; I10 Essential (primary) hypertension
CPT/HCPCS: 36415; 70450; 71010; 71045; 80053; 81003; 82550; 82553; 83735; 83880; 84484; 85025; 85384; 85610; 85730; 93005; 96360; 96361; 96365; 96374; 97161; 97166; 99284; A4222; G0378; J3490; J7030

== ENCOUNTER 2020-08-07 09:25 | Observation (INO) ==
--- NOTE | 2020-08-07 09:31 | DR.GENAD ---
HPI Time Seen Time Seen by Provider: 08/07/20 09:30 HPI Comment HPI Comment: This is an 84-year-old female with previous history of TIA, hypertension, GERD, hypothyroidism who presents with altered mental status onset 15 minutes prior to arrival. Patient has previous history of multiple TIAs in the past. Currently on Eliquis. Approximately 15 minutes prior to arrival patient had sudden onset right-sided facial droop as well as dysarthria per the patient's family. Patient also complaining of right upper extremity and right lower extremity weakness. No recent fall or injury. No recent missed doses of Eliquis. Patient denies chest pain, shortness of breath, nausea/vomiting. Source History Provided: Patient and Family Member Mode of Arrival Mode of Arrival: Wheelchair Timing Came on: Suddenly Duration How lon Duration: Minutes Severity Severity: Moderate PMH PMH Past Medical History: CVA, Diabetes, Hypertension and Hypothyroidism Past Surgical History: Yes Surgical History: Hysterectomy and Other Family History Family Medical History: [place] and Coronary Artery Disease Social History Type of Tobacco Use: None Alcohol Use: None Do you use any recreational Drugs:: No ROS Review of Systems Neurological: Paresthesia, Weakness and Speech Problem; negative Headache, Pre- existing Deficit, Seizure and Dizziness PE Vital Signs Vitals: Temperature 36.7 C Pulse Rate 72 Respiratory Rate 28 Blood Pressure [Left Arm] 145/64 Blood Pressure [Right Arm] 131/60 Blood Pressure [Left Arm] 135/60 Blood Pressure 136/63 O2 Sat by Pulse Oximetry 98 General Limitations: No Limitations General Appearance: Alert and In No Apparent Distress Head Head Exam: Normal Inspection Eyes Eye exam: Normal Appearance ENT ENT Exam: Normal Exam External Ear Exam: Normal External Inspection TM/Canal Exam: Bilateral: Normal Nose Exam: Normal Nose Exam Mouth Exam: Normal Inspection Throat Exam: Normal Inspection Neck Neck Exam: Normal Inspection Chest Chest Inspection: Normal Inspection Respiratory Respiratory Exam: Normal Lung Sounds Bilat Respiratory Exam: Bilateral: Clear to Auscultation Cardiovascular Cardiovascular Exam: Regular Rate and Normal Rhythm Abdominal Exam Abdominal Exam: Normal Inspection, Normal Bowel Sounds and Soft Extremities Extremities Exam: Normal Inspection Back Back Exam: Normal Inspection Neurologic Neurological Exam: Alert, Oriented X3 and Other (+ right sided facial droop, moderate dysarthria, mild expressive apahasia, + pronator drift on right, no neglect, no focal sensory defecits, nih ss 10 ) Psychiatric Psychiatric Exam: Normal Affect and Normal Mood Skin Skin Exam: Warm, Dry, Intact and Normal Color MDM Differential Diagnosis Differential Diagnosis: cva, ich, tia, hypoglycemia, intoxication, delerium COURSE Treatment Treatment: This is an 84-year-old female with multiple TIAs in the past who presents with sudden onset right-sided facial droop, dysarthria/mild aphasia as well as right upper extremity weakness. Last known well approximately 15 minutes prior to arrival. Patient was transported by private auto to ER. On my evaluation patient had an initial NIH stroke scale of 10. Stat CT of the head was performed which was unremarkable for any acute intracranial pathology. After approximately 30 minutes in the ER patient had spontaneous resolution of symptoms and is currently an NIH stroke scale of 0. Patient was not a TPA candidate due to her history of use of Eliquis. 325 mg of aspirin given in ED. Remainder of ED laboratory evaluation demonstrated findings consistent with UTI. Macrobid given. Discussed all details of case with her primary care physician Dr. Ventura who agrees to admit. Education/Counseling Education/Counseling: Patient and Family Educated On: Treatment, Diagnosis, Prognosis and Needs for Follow Up ROR Labs Reviewed Laboratory Results Reviewed?: Yes Result Diagrams: 08/07/20 09:34 08/07/20 09:34 Laboratory: WBC 9.3 X10^3/uL (3.6-10.0) 08/07/20 09:34 RBC 3.73 X10^6/uL (3.5-5.4) 08/07/20 09:34 Hgb 9.9 g/dL (12.0-16.0) L 08/07/20 09:34 Hct 29.9 % (36.0-47.0) L 08/07/20 09:34 MCV 80.1 fL (80.0-100.0) 08/07/20 09:34 MCH 26.5 pg (27.0-34.0) L 08/07/20 09:34 MCHC 33.1 g/dL (33.0-35.0) 08/07/20 09:34 RDW 23.3 % (11.6-16.5) H 08/07/20 09:34 Plt Count 500 X10^3/uL (150.0-450.0) H 08/07/20 09:34 Plt Count Comment Increased (ADEQUATE) A 08/07/20 09:34 MPV 6.5 fL (7.4-11.0) L 08/07/20 09:34 Neut % (Auto) 60.8 % (42.0-75.0) 08/07/20 09:34 Lymph % (Auto) 25.8 % (21.0-51.0) 08/07/20 09:34 [place] % (Auto) 8.7 % (0.0-13.0) 08/07/20 09:34 Eos % (Auto) 3.4 % (0.9-2.9) H 08/07/20 09:34 Baso % (Auto) 1.3 % (0.2-1.0) H 08/07/20 09:34 Neut # (Auto) 5.7 x10^3/uL (2.2-4.8) H 08/07/20 09:34 Lymph # (Auto) 2.4 X10^3/uL (1.3-2.9) 08/07/20 09:34 [place] # (Auto) 0.8 x10^3/uL (0.3-0.8) 08/07/20 09:34 Eos # (Auto) 0.3 x10^3/uL (0.0-0.2) H 08/07/20 09:34 Baso # (Auto) 0.1 X10^3/uL (0.0-0.1) 08/07/20 09:34 Absolute Nucleated RBC 0.1 /100WBC 08/07/20 09:34 Plt Morphology Comment Normal (NORMAL) 08/07/20 09:34 RBC Morphology Abnormal (NORMAL) A 08/07/20 09:34 Anisocytosis 2+ A 08/07/20 09:34 PT 14.5 SECONDS (11.8-14.3) 08/07/20 09:34 INR Target Range - 08/07/20 09:34 INR 1.17 (0.8-1.3) 08/07/20 09:34 APTT 33.7 SECONDS (22.9-36.5) 08/07/20 09:34 PTT Comment - 08/07/20 09:34 Sodium 137 mmol/L (136-145) 08/07/20 09:34 Corrected Sodium 138 mmol/L (136-145) 08/07/20 09:34 Potassium 4.1 mmol/L (3.5-5.1) 08/07/20 09:34 Chloride 100 mmol/L (98-107) 08/07/20 09:34 Carbon Dioxide 27.7 mmol/L (21-32) 08/07/20 09:34 BUN 27 mg/dL (7-18) H 08/07/20 09:34 Creatinine 1.16 mg/dL (0.55-1.02) H 08/07/20 09:34 Est GFR (MDRD) Af Amer 57 (>60) L 08/07/20 09:34 Est GFR (MDRD) Non-Af 47 (>60) L 08/07/20 09:34 Glucose 132 mg/dL (65-99) H 08/07/20 09:34 POC Glucose (mg/dL) 116 mg/dL (65-99) H 08/07/20 09:34 Calcium 9.7 mg/dL (8.5-10.1) 08/07/20 09:34 Troponin I < 0.02 ng/mL (0-1.5) 08/07/20 09:34 Specimen Type Catherized urine 08/07/20 10:09 Urine Color Yellow (YELLOW) 08/07/20 10:09 Urine Appearance Hazy (CLEAR) 08/07/20 10:09 Urine pH 6.0 (5.0 - 8.0) 08/07/20 10:09 Ur Specific [place] 1.015 (1.000-1.030) 08/07/20 10:09 Urine Protein 2+ (NEGATIVE) 08/07/20 10:09 Urine Glucose (UA) Negative (NEGATIVE) 08/07/20 10:09 Urine Ketones Negative (NEGATIVE) 08/07/20 10:09 Urine Occult Blood 3+ (NEGATIVE) 08/07/20 10:09 Urine Nitrite Negative (NEGATIVE) 08/07/20 10:09 Urine Bilirubin Negative (NEGATIVE) 08/07/20 10:09 Urine Urobilinogen Normal (NORMAL) 08/07/20 10:09 Ur Leukocyte Esterase 3+ (NEGATIVE) 08/07/20 10:09 Urine RBC 3-5 /HPF (0-3) A 08/07/20 10:09 Urine WBC Tntc /HPF (0-5) A 08/07/20 10:09 Ur Squamous Epith Cells Few /HPF (NEGATIVE) 08/07/20 10:09 Urine Bacteria 3+ /HPF (NEGATIVE) 08/07/20 10:09 Ur Culture Indicated? Yes/culture set up 08/07/20 10:09 Urine Opiates Screen Negative (NEG=<300) 08/07/20 10:09 Urine Methadone Screen Negative (NEG=<300) 08/07/20 10:09 Ur Barbiturates Screen Negative (NEG=<200) 08/07/20 10:09 Ur Phencyclidine Scrn Negative (NEG=<25) 08/07/20 10:09 Ur Amphetamines Screen Negative (NEG=<1000) 08/07/20 10:09 U Benzodiazepines Scrn Negative (NEG=<200) 08/07/20 10:09 Urine Cocaine Screen Negative (NEG=<300) 08/07/20 10:09 U Marijuana (THC) Screen Negative (NEG=<50) 08/07/20 10:09 Ethyl Alcohol mg/dL < 3 mg/dL (0-19.9) 08/07/20 09:34 XRAY XRAY Interpreted by: Radiologist X-ray Results: ct head: no acute cva or ich cxr 1 view: no infiltrate, no acute findings EKG Rate: 72 [place]: Normal Rhythm: NSR Block: None Hypertrophy: None ST: Normal Opioid Opioid Risk Tool Age (Wiliam box if 16-45): No History of Preadolescent Sexual Abuse: No Total: 0 Total Score Risk Category: Low Risk Copyright: Ezekiel REINOSO predicting aberrant behaviors Diagnosis Discharge Problem: Brain TIA, Essential hypertension UTI (urinary tract infection) Qualifiers: Urinary tract infection type: acute cystitis Hematuria presence: without hematuria Qualified Code(s): N30.00 - Acute cystitis without hematuria Type 2 diabetes mellitus Qualifiers: Diabetes mellitus supervisor intermediates insulin use: unspecified fdc insulin use status Diabetes mellitus complication status: with other specified complication Qualified Code(s): E11.69 - Type 2 diabetes mellitus with other specified complication Instructions Forms: Patient Portal Social Distancing
[2020-08-07 09:38] VITALS: BMI 28.3
[2020-08-07 09:46] LABS: BASOPHILS # (AUTO) 0.1 X10^3/uL (0.0-0.1); BASOPHILS % (AUTO) 1.3 % (0.2-1.0); EOSINOPHILS # (AUTO) 0.3 x10^3/uL (0.0-0.2); EOSINOPHILS % (AUTO) 3.4 % (0.9-2.9); HEMATOCRIT 29.9 % (36.0-47.0); HEMOGLOBIN 9.9 g/dL (12.0-16.0); LYMPHOCYTES # (AUTO) 2.4 X10^3/uL (1.3-2.9); LYMPHOCYTES % (AUTO) 25.8 % (21.0-51.0); MEAN CORPUSCULAR HEMOGLOBIN 26.5 pg (27.0-34.0); MEAN CORPUSCULAR HGB CONC 33.1 g/dL (33.0-35.0); MEAN CORPUSCULAR VOLUME 80.1 fL (80.0-100.0); MEAN PLATELET VOLUME 6.5 fL (7.4-11.0); MONOCYTES # (AUTO) 0.8 x10^3/uL (0.3-0.8); MONOCYTES % (AUTO) 8.7 % (0.0-13.0); NEUTROPHILS # (AUTO) 5.7 x10^3/uL (2.2-4.8); NEUTROPHILS % (AUTO) 60.8 % (42.0-75.0); PLATELET COUNT 500 X10^3/uL (150.0-450.0); RED BLOOD COUNT 3.73 X10^6/uL (3.5-5.4); RED CELL DISTRIBUTION WIDTH 23.3 % (11.6-16.5); WHITE BLOOD COUNT 9.3 X10^3/uL (3.6-10.0)
[2020-08-07 10:01] LABS: BLOOD ALCOHOL < 3 mg/dL (0-19.9); BLOOD UREA NITROGEN 27 mg/dL (7-18); CALCIUM 9.7 mg/dL (8.5-10.1); CARBON DIOXIDE 27.7 mmol/L (21-32); CHLORIDE 100 mmol/L (98-107); COR NA(FOR HYPERGLY) 138 mmol/L (136-145); CREATININE 1.16 mg/dL (0.55-1.02); SODIUM 137 mmol/L (136-145); TROPONIN I < 0.02 ng/mL (0-1.5); eGFR NON BLACK RACES 47 (>60)
[2020-08-07 10:16] LABS: ANISOCYTOSIS 2+; PLATELET MORPHOLOGY COMMENT NORMAL (NORMAL)
--- NOTE | 2020-08-07 10:17 | RAD ---
HISTORYAMS, stroke symptomsSTUDYAP [id number] heart size with essentially clear lungs and pleural spaces. Significant elevation of the right diaphragm again noted, limiting visualization of the posterior right lower lung. Neurostimulator device is present in the thoracic spinal canal.IMPRESSIONNo change; no acute chest abnormality.Electronically signed by: TANI AGUILERA (Aug 07, 2020 10:16:51)
--- NOTE | 2020-08-07 10:17 | CT ---
BRAIN W/O CONCLINICAL INDICATION: possible stroke/slurred speechTECHNIQUE: Images were obtained through the head per standard CT protocol. Multiplanar reformatted images were generated from the CT dataset. Dose reduction techniques including Automated Exposure Control (AEC) and adjustment of mA and kV were utlized.COMPARISON:April 08, 2019FINDINGS:Diffuse patchy and confluent periventricular and subcortical hypoattenuation with associated volume loss . There is no evidence of acute infarction, intracranial hemorrhage, mass or mass effect, or abnormal extra-axial collection . The density of the larger dural venous sinuses is normal. Age-related, ex-vacuo dilatation of the ventricles and sulci . The skull base and calvarium are normal . The included paranasal sinuses and mastoid air cells are predominantly clear. Hyperattenuating nodule of the left scalp on series 6, image 22. This is new from prior.IMPRESSION:1. No acute intracranial abnormality. Chronic microangiopathic changes and ex vacuo dilatation of the ventricles and sulci.[2. Hyperattenuating left scalp lesion which appears to be new from prior. Given patient's reported history of skin cancer, this should be clinically evaluated.]Electronically signed by: AXEL HUANG (Aug 07, 2020 10:16:38)
[2020-08-07 10:18] LABS: BILIRUBIN,URINE NEGATIVE (NEGATIVE); BLOOD/HEMOGLOBIN,URINE 3+ (NEGATIVE); GLUCOSE, URINE NEGATIVE (NEGATIVE); KETONES,URINE NEGATIVE (NEGATIVE); LEUKOCYTE ESTERASE ,URINE 3+ (NEGATIVE); NITRITES,URINE NEGATIVE (NEGATIVE); PROTEIN,URINE 2+ (NEGATIVE); UROBILINOGEN,URINE NORMAL (NORMAL)
[2020-08-07 10:20] LABS: APPEARANCE,URINE HAZY (CLEAR); COLOR,URINE YELLOW (YELLOW)
[2020-08-07 10:27] LABS: BACTERIA,URINE 3+ /HPF (NEGATIVE); SQUAMOUS EPITHELIAL CELL,UR FEW /HPF (NEGATIVE)
[2020-08-07] MEDS: MACROBID CAP 100 MG EXT REL PO SCH ×2 (12:30→20:55)
[2020-08-07] MEDS: ASPIRIN PO SCH (12:30)
[2020-08-07] MEDS ORDERED: HumuLIN R SUBCUT PRN (14:32)
[2020-08-07] MEDS ORDERED: ANTIVERT TAB 25 MG PO PRN (16:10)
[2020-08-07] MEDS: INVANZ INJ 1 GM VIAL 1 GM in NS 100 ML IV + SPIKE MINIBAG* 100 ML IV SCH (16:22)
[2020-08-07] MEDS ORDERED: GLUCOPHAGE ONE (16:40)
[2020-08-07] MEDS: DIABETA PO SCH (16:51)
[2020-08-07] MEDS: GLUCOPHAGE PO SCH (16:51)
[2020-08-07] MEDS: NS 1000 ML 1,000 ML IV SCH (17:32)
[2020-08-07] MEDS: SNACK - Diabetic Appropriate PO SCH (19:45)
[2020-08-07] MEDS: ELIQUIS PO SCH (20:55)
[2020-08-07] MEDS: ZyrTEC TAB 10 MG PO SCH (20:55)
[2020-08-07] MEDS: CRESTOR TAB 10 MG PO SCH (20:55)
[2020-08-07] MEDS: NORVASC TAB 5 MG PO SCH (20:55)
[2020-08-07] MEDS ORDERED: GLYBURIDE METFORMIN PO SCH (21:00)
[2020-08-08] MEDS ORDERED: GLUCOPHAGE ONE ×2 (05:25→16:34)
[2020-08-08] MEDS: GLUCOPHAGE PO SCH ×2 (06:08→16:45)
[2020-08-08] MEDS: NS 1000 ML 1,000 ML IV SCH ×4 (06:09→23:25)
[2020-08-08] MEDS: DIABETA PO SCH ×2 (06:09→16:45)
[2020-08-08 06:38] LABS: BASOPHILS # (AUTO) 0.1 X10^3/uL (0.0-0.1); BASOPHILS % (AUTO) 1.3 % (0.2-1.0); EOSINOPHILS # (AUTO) 0.4 x10^3/uL (0.0-0.2); EOSINOPHILS % (AUTO) 4.7 % (0.9-2.9); HEMATOCRIT 28.2 % (36.0-47.0); LYMPHOCYTES % (AUTO) 24.4 % (21.0-51.0); MEAN CORPUSCULAR HEMOGLOBIN 26.1 pg (27.0-34.0); MEAN CORPUSCULAR VOLUME 81.5 fL (80.0-100.0); MEAN PLATELET VOLUME 6.9 fL (7.4-11.0); MONOCYTES # (AUTO) 0.7 x10^3/uL (0.3-0.8); NEUTROPHILS % (AUTO) 60.6 % (42.0-75.0); PLATELET COUNT 441 X10^3/uL (150.0-450.0); RED BLOOD COUNT 3.46 X10^6/uL (3.5-5.4); RED CELL DISTRIBUTION WIDTH 23.3 % (11.6-16.5); WHITE BLOOD COUNT 8.2 X10^3/uL (3.6-10.0)
[2020-08-08 06:49] LABS: ALANINE AMINOTRANSFERASE 17 Units/L (12-78); ALBUMIN 2.9 g/dL (3.4-5.0); ALKALINE PHOSPHATASE 66 Units/L (46-116); ASPARTATE AMINO TRANSFERASE 10 Units/L (15-37); BLOOD UREA NITROGEN 19 mg/dL (7-18); CALCIUM 8.9 mg/dL (8.5-10.1); CARBON DIOXIDE 28.7 mmol/L (21-32); CHLORIDE 104 mmol/L (98-107); COR CA(FOR HYPOALB) 9.8 mg/dL (8.5-10.1); SODIUM 140 mmol/L (136-145); TOTAL PROTEIN 7.5 g/dL (6.4-8.2); eGFR NON BLACK RACES > 60 (>60)
[2020-08-08 07:41] LABS: ANISOCYTOSIS 2+; HYPOCHROMASIA SLIGHT; PLATELET MORPHOLOGY COMMENT NORMAL (NORMAL)
[2020-08-08] MEDS: EFFEXOR XR 75 MG CAP 24-HR PO SCH (08:42)
[2020-08-08] MEDS: INVANZ INJ 1 GM VIAL 1 GM in NS 100 ML IV + SPIKE MINIBAG* 100 ML IV SCH (08:42)
[2020-08-08] MEDS: ASPIRIN PO SCH (08:42)
[2020-08-08] MEDS: ELIQUIS PO SCH ×2 (08:42→21:00)
[2020-08-08] MEDS: MACROBID CAP 100 MG EXT REL PO SCH ×2 (08:43→21:00)
[2020-08-08] MEDS: NORVASC TAB 5 MG PO SCH ×2 (08:43→21:00)
[2020-08-08] MEDS: TAB-A-VITE PO SCH (08:43)
[2020-08-08] MEDS: SINGULAIR TAB 10 MG PO SCH (08:43)
[2020-08-08] MEDS: NexIUM PO SCH (08:43)
[2020-08-08] MEDS ORDERED: ASPIRIN PO SCH (09:00)
[2020-08-08] MEDS ORDERED: FOLIC ACID VIT B6 VIT B12 PO SCH (09:00)
--- NOTE | 2020-08-08 09:38 | DR.H&P ---
H&P - History & Physical for Day of: H&P Date: 08/07/20 - Chief Complaint Chief Complaint: AMS, RIGHT SIDED WEAKNESS, RIGHT SIDED FACIAL DROOP - History of Present Illness History of Present Illness: IS A 84 YEAR OLD PATIENT OF OURS WHO PRESENTED TO THE ER WITH COMPLAINTS OF ALTERED MENTAL STATUS AND WEAKNESS. PATIENT HAS A PMH OF MULTIPLE TIAs, HTN, GERD, DIABETES, AND HYPOTHYROIDISM. SHE IS CURRENTLY ON ELIQUIS. SHE REPORTS THAT HER SYMPTOMS STARTED ABOUT 15 MINUTES PRIOR TO ARRIVAL. PATIENTS DAUGHTER, WHO IS A NURSE, REPORTS THAT PATIENT HAD SUDDEN ONSET RIGHT SIDED FACIAL DROOP AND DYSARTHRIA. PATIENT COMPLAINS OF RIGHT UPPER EXTREMITY AND RIGHT LOWER EXTREMITY WEAKNESS. SHE DENIES CHEST PAIN, SOB, NAUSEA, OR VOMITING. ON ARRIVAL TO THE ER, PATIENT IS NOTED TO HAVE A RIGHT SIDED FACIAL DROOP, MODERATE DYSARTHRIA, MILD EXPRESSIVE APHASIA, POSITIVE PRONATOR DRIFT ON THE RIGHT. SHE FOLLOWS COMMANDS APPROPRIATELY. ON ARRIVAL, VITALS WERE 98.1-75-20-96%-144/66. LABS WERE OBTAINED. ABNORMAL LAB VALUES INCLUDE THE FOLLOWING: HGB 9.9, HCT 29.9, PLT COUNT 500, BUN 27, CREATININE 1.16, GLUCOSE 132. URINALYSIS REVEALED: WBC TNTC, RBC 3-5, BACTERIA 3+, LEUKOCYTES 3+, OCCULT BLOOD 3+, PROTEIN 2+. A BRAIN CT WAS OBTAINED AND REVEALED: 1. No acute intracranial abnormality. Chronic microangiopathic changes and ex vacuo dilatation of the ventricles and sulci. 2. Hyperattenuating left scalp lesion which appears to be new from prior. Given patient's reported history of skin cancer, this should be clinically evaluated. CHEST XRAY REVEALED: No change; no acute chest abnormality. EKG REVEALED: SINUS RHYTHM WITH HR 72. AFTER APPROXIMATELY 30 MINUTES AFTER ARRIVAL TO ER, PATIENTS SYMPTOMS RESOLVED. DECISION WAS MADE TO KEEP PATIENT FOR FURTHER EVALUATION AND TREATMENT OF ALTERED MENTAL STATUS, RIGHT SIDED WEAKNESS, AND URINARY TRACT INFECTION. SHE WAS STARTED ON NORMAL SALINE AT 50 ML/HR, INVANZ 1G IV DAILY, HUMULIN R SLIDING SCALE, AND HER HOME MEDICATIONS WERE RESUMED. WE DID DECREASE ELIQUIS FROM 5MG PO BID TO 2.5MG PO BID. OTHERWISE WE PLAN TO FOLLOW UP WITH AM LABS AND CONTINUE TO MONITOR. TIME SPENT ON CLINICAL ASSESSMENT, REVIEWING LABS AND IMAGING, DECISION MAKING, AND DOCUMENTATION GREATER THAN 75 MINUTES. - Past Medical History Past Medical History: Anemia, CVA, Diabetes, Hypertension, Hypothyroidism Additional Medical History: Gastrointestinal Ulcer, Hiatal Hernia - Past Surgical History Surgical History: Hysterectomy, Other Additional Surgical History: Hemorrhoidectomy X 2, Tubal, Spinal Stimulator, Carpal Tunnel - Family History Family Medical History: Coronary Artery Disease, Hypertension - Social History Does patient currently use any type of tobacco product: No Have you used tobacco products in the last 12 months: No Type of Tobacco Use: None Does any household member use tobacco: No Alcohol Use: None - Medications Home Medications: codeine Allergy (Verified 04/07/18 10:02) Penicillins Allergy (Verified 04/07/18 10:02) CONTINUE taking the following medications apixaban [Eliquis] 5 mg PO BID 08/07/20 [History] meclizine 25 mg PO BID PRN 08/07/20 [History] - Review of Systems Constitutional: Weakness Eyes: No Symptoms Reported ENT: No Symptoms Reported Respiratory: No Symptoms Reported Cardiovascular: No Symptoms Reported Gastrointestinal: No Symptoms Reported Genitourinary: No Symptoms Reported Skin: No Symptoms Reported Neurological: No Symptoms Reported, Weakness (RIGHT SIDED UPPER AND LOWER EXTREMITY WEAKNESS), Confusion, Other (RIGHT SIDED FACIAL DROOP ) - Physical Exam Vital Signs: Temperature 98.0 F Pulse Rate [Left Radial] 84 Pulse Rate 74 Respiratory Rate 20 Blood Pressure [Left Arm] 136/62 Blood Pressure [Right Arm] 131/60 Blood Pressure [Left Arm] 135/60 Blood Pressure 146/66 O2 Sat by Pulse Oximetry 96 Oriented: Person Eyes: Normal Ear: Normal Nose: Normal Throat: Normal Respiratory: Diminished Throughout Cardiovascular: Normal : Normal Auscultation: Bowel Sounds: Normal Palpation: Normal Tenderness: Normal Skin: Normal Musculoskeletal: Right, Arm (WEAKNESS ), Leg (WEAKNESS) Psychiatric: Normal Mood Description: Calm Affect: Normal Speech Pattern: Appropriate, Aphasic - Assessment/Plan (1) UTI (urinary tract infection) Qualifiers: Urinary tract infection type: acute cystitis Hematuria presence: without hematuria Qualified Code(s): N30.00 - Acute cystitis without hematuria Status: Acute Plan: ADMIT, NORMAL SALINE AT 50 ML/HR, INVANZ 1G IV DAILY, HUMULIN R SLIDING SCALE, ELIQUIS 2.5MG PO BID, RESUME HOME MEDICATIONS (2) Right sided weakness Status: Acute (3) Altered mental state Qualifiers: Altered mental status type: transient alteration of awareness Qualified Code(s): R40.4 - Transient alteration of awareness Status: Acute - Allergies Allergies/Adverse Reactions: Allergies Allergy/AdvReac Type Severity Reaction Status Date / Time codeine Allergy Verified 04/07/18 10:02 Penicillins Allergy Verified 04/07/18 10:02
--- NOTE | 2020-08-08 11:34 | RAD ---
SACRUM COCCYXHISTORY: fall a few days ago at homeStudy: views of the sacrum and coccyx.Comparison:NoneFindings:No acute fractures or dislocations.The visualized portions of the SI joint on the right and left are unremarkable. The visualized portion of the pelvis are normal as well.IMPRESSION:1. No acute fractures of the sacrum or coccyx. Please note that coccygeal fractures can be radio-occult and digital rectal examination would be recommended if this is a clinical concern.Electronically signed by: AXEL HUANG (Aug 08, 2020 11:33:12)
[2020-08-08] MEDS: SYNTHROID 88 mcg TAB PO SCH (16:45)
[2020-08-08] MEDS: SNACK - Diabetic Appropriate PO SCH (19:45)
[2020-08-08] MEDS: CRESTOR TAB 10 MG PO SCH (21:00)
[2020-08-08] MEDS: ZyrTEC TAB 10 MG PO SCH (21:00)
[2020-08-08] MEDS ORDERED: TYLENOL 325 MG TAB PO PRN (21:25)
[2020-08-09 06:53] LABS: BASOPHILS # (AUTO) 0.1 X10^3/uL (0.0-0.1); BASOPHILS % (AUTO) 1.3 % (0.2-1.0); EOSINOPHILS # (AUTO) 0.5 x10^3/uL (0.0-0.2); EOSINOPHILS % (AUTO) 6.1 % (0.9-2.9); HEMATOCRIT 28.6 % (36.0-47.0); HEMOGLOBIN 9.5 g/dL (12.0-16.0); LYMPHOCYTES # (AUTO) 2.3 X10^3/uL (1.3-2.9); LYMPHOCYTES % (AUTO) 28.7 % (21.0-51.0); MEAN CORPUSCULAR HEMOGLOBIN 26.8 pg (27.0-34.0); MEAN CORPUSCULAR HGB CONC 33.2 g/dL (33.0-35.0); MEAN CORPUSCULAR VOLUME 80.8 fL (80.0-100.0); MEAN PLATELET VOLUME 6.9 fL (7.4-11.0); MONOCYTES # (AUTO) 0.7 x10^3/uL (0.3-0.8); MONOCYTES % (AUTO) 9.2 % (0.0-13.0); NEUTROPHILS # (AUTO) 4.4 x10^3/uL (2.2-4.8); NEUTROPHILS % (AUTO) 54.7 % (42.0-75.0); PLATELET COUNT 428 X10^3/uL (150.0-450.0); RED BLOOD COUNT 3.53 X10^6/uL (3.5-5.4); RED CELL DISTRIBUTION WIDTH 23.1 % (11.6-16.5)
[2020-08-09 07:16] LABS: ALANINE AMINOTRANSFERASE 19 Units/L (12-78); ALBUMIN 3.1 g/dL (3.4-5.0); ALKALINE PHOSPHATASE 71 Units/L (46-116); ASPARTATE AMINO TRANSFERASE 15 Units/L (15-37); BLOOD UREA NITROGEN 14 mg/dL (7-18); CALCIUM 9.2 mg/dL (8.5-10.1); CHLORIDE 105 mmol/L (98-107); COR CA(FOR HYPOALB) 9.9 mg/dL (8.5-10.1); CREATININE 0.88 mg/dL (0.55-1.02); SODIUM 142 mmol/L (136-145); TOTAL PROTEIN 7.8 g/dL (6.4-8.2); eGFR NON BLACK RACES > 60 (>60)
[2020-08-09 07:49] LABS: ANISOCYTOSIS 2+; PLATELET MORPHOLOGY COMMENT NORMAL (NORMAL)
[2020-08-09] MEDS ORDERED: GLUCOPHAGE ONE ×2 (09:22→17:30)
[2020-08-09] MEDS: MACROBID CAP 100 MG EXT REL PO SCH ×2 (09:41→20:53)
[2020-08-09] MEDS: NORVASC TAB 5 MG PO SCH ×2 (09:41→20:53)
[2020-08-09] MEDS: SINGULAIR TAB 10 MG PO SCH (09:41)
[2020-08-09] MEDS: ASPIRIN PO SCH (09:41)
[2020-08-09] MEDS: NexIUM PO SCH (09:41)
[2020-08-09] MEDS: TAB-A-VITE PO SCH (09:41)
[2020-08-09] MEDS: EFFEXOR XR 75 MG CAP 24-HR PO SCH (09:41)
[2020-08-09] MEDS: GLUCOPHAGE PO SCH ×2 (09:42→17:37)
[2020-08-09] MEDS: ELIQUIS PO SCH ×3 (09:42→20:54)
[2020-08-09] MEDS: INVANZ INJ 1 GM VIAL 1 GM in NS 100 ML IV + SPIKE MINIBAG* 100 ML IV SCH (09:44)
[2020-08-09] MEDS: DIABETA PO SCH ×2 (09:45→17:36)
[2020-08-09] MEDS ORDERED: ZOFRAN INJ 4 MG VIAL IVP PRN (11:18)
--- NOTE | 2020-08-09 11:22 | PCM.PROG ---
Progress Note - Progress Note for Day of Date of Exam: 08/08/20 - Subjective Subjective: WAS ADMITTED FOR FURTHER EVALUATION AND TREATMENT OF UTI, RIGHT SIDED WEAKNESS, AND AMS. TODAY, SHE IS ALERT AND ORIENTED, LYING IN BED ON MORNING ROUNDS. SHE HAS MORE OF A GENERALIZED WEAKNESS TODAY RATHER THAN JUST A RIGHT SIDED WEAKNESS. THERE IS NO FACIAL DROOP NOTED THIS MORNING. SHE DOES COMPLAIN OF COCCYX PAIN. SHE REPORTS THAT PAIN STARTED 3-4 DAYS AGO WHEN SHE SAT DOWN TOO HARD ON SOMETHING. SHE ALSO REPORTS THAT THERE IS A LUMP TO THE LEFT SIDE OF HER HEAD. ON EXAMINATION, THERE IS A 2CM SOFT LUMP TO THE LEFT TEMPORAL LOBE. PATIENT DENIES HITTING HER HEAD ON ANYTHING. HEART IS REGULAR IN RATE AND RHYTHM. BILATERAL LUNGS ARE NOTED WITH DIMINISHED LUNG SOUNDS THROUGHOUT. ABDOMEN IS ROUND, SOFT, AND NON-TENDER WITH NORMAL BOWEL SOUNDS NOTED IN ALL QUADRANTS. HER VITALS THIS MORNING ARE: 98.0-84-20-96%-136/62. LABS WERE OBTAINED. ABNORMAL LAB VALUES INCLUDE THE FOLLOWING: RBC 3.46, HGB 9.0, HCT 28.2, BUN 19, TOTAL BILI 0.10, AST 10, ALBUMIN 2.9, GLOBULIN 4.6. URINE CULTURES ARE PENDING. SHE IS CURRENTLY RECEIVING NORMAL SALINE AT 50 ML/HR, INVANZ 1G IV DAILY, HUMULIN R SLIDING SCALE, ELIQUIS 2.5MG PO BID, AND HER HOME MEDICATIONS WERE RESUMED. TODAY, WE WILL OBTAIN AN XRAY OF THE SACRUM AND COCCYX. OTHERWISE, WE PLAN TO FOLLOW UP WITH AM LABS AND CONTINUE TO MONITOR. TIME SPENT ON CLINICAL ASSESSMENT, REVIEWING LABS AND IMAGING, DECISION MAKING, AND DOCUME NTATION GREATER THAN 75 MINUTES. - Past Medical Family Social History Past Med/Fam/Surg Hx: No changes since H&P Allergies: Allergies codeine Allergy (Verified 04/07/18 10:02) Penicillins Allergy (Verified 04/07/18 10:02) - Review of Systems ROS: No change since H&P - Vital Signs and I&O's Vital Signs: Temperature 97.7 F Pulse Rate [Left Radial] 76 Pulse Rate 74 Respiratory Rate 18 Blood Pressure [Left Arm] 153/68 Blood Pressure [Right Arm] 131/60 Blood Pressure [Left Arm] 135/60 Blood Pressure 146/66 O2 Sat by Pulse Oximetry 94 Intake and Output: Intake & Output 08/06/20 08/07/20 08/08/20 08/09/20 11:59 11:59 11:59 11:59 Intake Total 1947 / 3333 Balance 1947 / 3333 - Physical Exam Oriented: Normal Eyes: Normal Ear: Normal Nose: Normal Throat: Normal Respiratory: Normal Cardiovascular: Normal : Normal Auscultation: Bowel Sounds: Normal Tenderness: Normal Skin: Normal Musculoskeletal: Normal Psychiatric: Normal Mood Description: Calm Affect: Normal Speech Pattern: Clear, Appropriate - Laboratory and Diagnostics Result Diagrams: 08/09/20 05:23 08/09/20 05:23 Labs: 08/07/20 10:09 Urine,Catheterized Urine Culture - Preliminary Escherichia Coli Laboratory WBC 8.0 X10^3/uL (3.6-10.0) 08/09/20 05:23 RBC 3.53 X10^6/uL (3.5-5.4) 08/09/20 05:23 Hgb 9.5 g/dL (12.0-16.0) L 08/09/20 05:23 Hct 28.6 % (36.0-47.0) L 08/09/20 05:23 MCV 80.8 fL (80.0-100.0) 08/09/20 05:23 MCH 26.8 pg (27.0-34.0) L 08/09/20 05:23 MCHC 33.2 g/dL (33.0-35.0) 08/09/20 05:23 RDW 23.1 % (11.6-16.5) H 08/09/20 05:23 Plt Count 428 X10^3/uL (150.0-450.0) 08/09/20 05:23 Plt Count Comment Adequate (ADEQUATE) 08/09/20 05:23 MPV 6.9 fL (7.4-11.0) L 08/09/20 05:23 Neut % (Auto) 54.7 % (42.0-75.0) 08/09/20 05:23 Lymph % (Auto) 28.7 % (21.0-51.0) 08/09/20 05:23 [place] % (Auto) 9.2 % (0.0-13.0) 08/09/20 05:23 Eos % (Auto) 6.1 % (0.9-2.9) H 08/09/20 05:23 Baso % (Auto) 1.3 % (0.2-1.0) H 08/09/20 05:23 Neut # (Auto) 4.4 x10^3/uL (2.2-4.8) 08/09/20 05:23 Lymph # (Auto) 2.3 X10^3/uL (1.3-2.9) 08/09/20 05:23 [place] # (Auto) 0.7 x10^3/uL (0.3-0.8) 08/09/20 05:23 Eos # (Auto) 0.5 x10^3/uL (0.0-0.2) H 08/09/20 05:23 Baso # (Auto) 0.1 X10^3/uL (0.0-0.1) 08/09/20 05:23 Absolute Nucleated RBC 0.0 /100WBC 08/09/20 05:23 Plt Morphology Comment Normal (NORMAL) 08/09/20 05:23 RBC Morphology Abnormal (NORMAL) A 08/09/20 05:23 Hypochromasia Slight A 08/08/20 05:53 Anisocytosis 2+ A 08/09/20 05:23 PT 14.5 SECONDS (11.8-14.3) 08/07/20 09:34 INR Target Range - 08/07/20 09:34 INR 1.17 (0.8-1.3) 08/07/20 09:34 APTT 33.7 SECONDS (22.9-36.5) 08/07/20 09:34 PTT Comment - 08/07/20 09:34 Sodium 142 mmol/L (136-145) 08/09/20 05:23 Corrected Sodium TNP 08/09/20 05:23 Potassium 3.9 mmol/L (3.5-5.1) 08/09/20 05:23 Chloride 105 mmol/L (98-107) 08/09/20 05:23 Carbon Dioxide 28.0 mmol/L (21-32) 08/09/20 05:23 BUN 14 mg/dL (7-18) 08/09/20 05:23 Creatinine 0.88 mg/dL (0.55-1.02) 08/09/20 05:23 Est GFR (MDRD) Af Amer > 60 (>60) 08/09/20 05:23 Est GFR (MDRD) Non-Af > 60 (>60) 08/09/20 05:23 Glucose 91 mg/dL (65-99) 08/09/20 05:23 POC Glucose (mg/dL) 95 mg/dL (65-99) 08/09/20 11:04 Calcium 9.2 mg/dL (8.5-10.1) 08/09/20 05:23 Corrected Calcium 9.9 mg/dL (8.5-10.1) 08/09/20 05:23 Total Bilirubin 0.10 mg/dL (0.2-1.0) L 08/09/20 05:23 AST 15 Units/L (15-37) 08/09/20 05:23 ALT 19 Units/L (12-78) 08/09/20 05:23 Alkaline Phosphatase 71 Units/L (46-116) 08/09/20 05:23 Troponin I < 0.02 ng/mL (0-1.5) 08/07/20 09:34 Total Protein 7.8 g/dL (6.4-8.2) 08/09/20 05:23 Albumin 3.1 g/dL (3.4-5.0) L 08/09/20 05:23 Globulin 4.7 g/dL (2.5-4.5) H 08/09/20 05:23 Albumin/Globulin Ratio 0.7 Ratio (1.1-2.1) L 08/09/20 05:23 Specimen Type Catherized urine 08/07/20 10:09 Urine Color Yellow (YELLOW) 08/07/20 10:09 Urine Appearance Hazy (CLEAR) 08/07/20 10:09 Urine pH 6.0 (5.0 - 8.0) 08/07/20 10:09 Ur Specific [place] 1.015 (1.000-1.030) 08/07/20 10:09 Urine Protein 2+ (NEGATIVE) 08/07/20 10:09 Urine Glucose (UA) Negative (NEGATIVE) 08/07/20 10:09 Urine Ketones Negative (NEGATIVE) 08/07/20 10:09 Urine Occult Blood 3+ (NEGATIVE) 08/07/20 10:09 Urine Nitrite Negative (NEGATIVE) 08/07/20 10:09 Urine Bilirubin Negative (NEGATIVE) 08/07/20 10:09 Urine Urobilinogen Normal (NORMAL) 08/07/20 10:09 Ur Leukocyte Esterase 3+ (NEGATIVE) 08/07/20 10:09 Urine RBC 3-5 /HPF (0-3) A 08/07/20 10:09 Urine WBC Tntc /HPF (0-5) A 08/07/20 10:09 Ur Squamous Epith Cells Few /HPF (NEGATIVE) 08/07/20 10:09 Urine Bacteria 3+ /HPF (NEGATIVE) 08/07/20 10:09 Ur Culture Indicated? Yes/culture set up 08/07/20 10:09 Urine Opiates Screen Negative (NEG=<300) 08/07/20 10:09 Urine Methadone Screen Negative (NEG=<300) 08/07/20 10:09 Ur Barbiturates Screen Negative (NEG=<200) 08/07/20 10:09 Ur Phencyclidine Scrn Negative (NEG=<25) 08/07/20 10:09 Ur Amphetamines Screen Negative (NEG=<1000) 08/07/20 10:09 U Benzodiazepines Scrn Negative (NEG=<200) 08/07/20 10:09 Urine Cocaine Screen Negative (NEG=<300) 08/07/20 10:09 U Marijuana (THC) Screen Negative (NEG=<50) 08/07/20 10:09 Ethyl Alcohol mg/dL < 3 mg/dL (0-19.9) 08/07/20 09:34 SARS CoV-2 RNA Rapid LOLITA Negative (NEGATIVE) 08/07/20 10:45 - Plan (1) UTI (urinary tract infection) Status: Acute Qualifiers: Urinary tract infection type: acute cystitis Hematuria presence: without hematuria Qualified Code(s): N30.00 - Acute cystitis without hematuria Plan: NORMAL SALINE AT 50 ML/HR, INVANZ 1G IV DAILY, HUMULIN R SLIDING SCALE, ELIQUIS 2.5MG PO BID, RESUME HOME MEDICATIONS (2) Right sided weakness Status: Acute (3) Altered mental state Status: Acute Qualifiers: Altered mental status type: transient alteration of awareness Qualified Code(s): R40.4 - Transient alteration of awareness
--- NOTE | 2020-08-09 11:22 | PCM.PROG ---
Progress Note - Progress Note for Day of Date of Exam: 08/09/20 - Subjective Subjective: IS BEING TREATED FOR UTI AND GENERALIZED WEAKNESS. SHE NO LONGER HAS FACIAL DROOPING. TODAY, SHE IS ALERT AND ORIENTED, LYING IN BED ON MORNING ROUNDS. SHE CONTINUES WITH COMPLAINTS OF GENERALIZED WEAKNESS TODAY AND REPORTS I JUST DONT FEEL GOOD. ON EXAMINATION, THERE IS A 2CM SOFT LUMP TO THE LEFT TEMPORAL LOBE. HEART IS REGULAR IN RATE AND RHYTHM. BILATERAL LUNGS ARE NOTED WITH DIMINISHED LUNG SOUNDS THROUGHOUT. ABDOMEN IS ROUND, SOFT, AND NON- TENDER WITH NORMAL BOWEL SOUNDS NOTED IN ALL QUADRANTS. HER VITALS THIS MORNING ARE: 97.7-76-18-94%-153/68. LABS WERE OBTAINED. ABNORMAL LAB VALUES INCLUDE THE FOLLOWING:HGB 9.5, HCT 28.6, TOTAL BILI 0.10, ALBUMIN 3.1, GLOBULIN 4.7. URINE CULTURES REPORTS GROWTH OF E.COLI. IT IS SENSITIVE TO THE INVANZ THAT SHE IS CURRENTLY RECEIVING. WE OBTAINED A SACRUM AND COCCYX XRAY YESTERDAY. IT REVEALED NO ACUTE FRACTURES OF THE SACRUM OR COCCYX. SHE IS CURRENTLY RECEIVING NORMAL SALINE AT 50 ML/HR, INVANZ 1G IV DAILY, HUMULIN R SLIDING SCALE, ELIQUIS 2.5MG PO BID, AND HER HOME MEDICATIONS WERE RESUMED. WE WILL CONTINUE WITH CURRENT AN OF CARE TODAY. OTHERWISE, WE PLAN TO FOLLOW UP WITH AM LABS AND CONTINUE TO MONITOR. TIME SPENT ON CLINICAL ASSESSMENT, REVIEWING LABS AND IMAGING, DECISION MAKING, AND DOCUMENTATION GREATER THAN 75 MINUTES. - Past Medical Family Social History Past Med/Fam/Surg Hx: No changes since H&P Allergies: Allergies codeine Allergy (Verified 04/07/18 10:02) Penicillins Allergy (Verified 04/07/18 10:02) - Review of Systems ROS: No change since H&P - Vital Signs and I&O's Vital Signs: Temperature 97.7 F Pulse Rate [Left Radial] 76 Pulse Rate 74 Respiratory Rate 18 Blood Pressure [Left Arm] 153/68 Blood Pressure [Right Arm] 131/60 Blood Pressure [Left Arm] 135/60 Blood Pressure 146/66 O2 Sat by Pulse Oximetry 94 Intake and Output: Intake & Output 08/06/20 08/07/20 08/08/20 08/09/20 11:59 11:59 11:59 11:59 Intake Total 1947 / 3334 Balance 1947 / 3333 - Physical Exam Oriented: Normal Eyes: Normal Ear: Normal Nose: Normal Throat: Normal Respiratory: Normal Cardiovascular: Normal : Normal Auscultation: Bowel Sounds: Normal Palpation: Normal Tenderness: Normal Skin: Normal Musculoskeletal: Normal Psychiatric: Normal Mood Description: Calm Affect: Normal Speech Pattern: Clear, Appropriate - Laboratory and Diagnostics Result Diagrams: 08/09/20 05:23 08/09/20 05:23 Labs: 08/07/20 10:09 Urine,Catheterized Urine Culture - Preliminary Escherichia Coli Laboratory WBC 8.0 X10^3/uL (3.6-10.0) 08/09/20 05:23 RBC 3.53 X10^6/uL (3.5-5.4) 08/09/20 05:23 Hgb 9.5 g/dL (12.0-16.0) L 08/09/20 05:23 Hct 28.6 % (36.0-47.0) L 08/09/20 05:23 MCV 80.8 fL (80.0-100.0) 08/09/20 05:23 MCH 26.8 pg (27.0-34.0) L 08/09/20 05:23 MCHC 33.2 g/dL (33.0-35.0) 08/09/20 05:23 RDW 23.1 % (11.6-16.5) H 08/09/20 05:23 Plt Count 428 X10^3/uL (150.0-450.0) 08/09/20 05:23 Plt Count Comment Adequate (ADEQUATE) 08/09/20 05:23 MPV 6.9 fL (7.4-11.0) L 08/09/20 05:23 Neut % (Auto) 54.7 % (42.0-75.0) 08/09/20 05:23 Lymph % (Auto) 28.7 % (21.0-51.0) 08/09/20 05:23 [place] % (Auto) 9.2 % (0.0-13.0) 08/09/20 05:23 Eos % (Auto) 6.1 % (0.9-2.9) H 08/09/20 05:23 Baso % (Auto) 1.3 % (0.2-1.0) H 08/09/20 05:23 Neut # (Auto) 4.4 x10^3/uL (2.2-4.8) 08/09/20 05:23 Lymph # (Auto) 2.3 X10^3/uL (1.3-2.9) 08/09/20 05:23 [place] # (Auto) 0.7 x10^3/uL (0.3-0.8) 08/09/20 05:23 Eos # (Auto) 0.5 x10^3/uL (0.0-0.2) H 08/09/20 05:23 Baso # (Auto) 0.1 X10^3/uL (0.0-0.1) 08/09/20 05:23 Absolute Nucleated RBC 0.0 /100WBC 08/09/20 05:23 Plt Morphology Comment Normal (NORMAL) 08/09/20 05:23 RBC Morphology Abnormal (NORMAL) A 08/09/20 05:23 Hypochromasia Slight A 08/08/20 05:53 Anisocytosis 2+ A 08/09/20 05:23 PT 14.5 SECONDS (11.8-14.3) 08/07/20 09:34 INR Target Range - 08/07/20 09:34 INR 1.17 (0.8-1.3) 08/07/20 09:34 APTT 33.7 SECONDS (22.9-36.5) 08/07/20 09:34 PTT Comment - 08/07/20 09:34 Sodium 142 mmol/L (136-145) 08/09/20 05:23 Corrected Sodium TNP 08/09/20 05:23 Potassium 3.9 mmol/L (3.5-5.1) 08/09/20 05:23 Chloride 105 mmol/L (98-107) 08/09/20 05:23 Carbon Dioxide 28.0 mmol/L (21-32) 08/09/20 05:23 BUN 14 mg/dL (7-18) 08/09/20 05:23 Creatinine 0.88 mg/dL (0.55-1.02) 08/09/20 05:23 Est GFR (MDRD) Af Amer > 60 (>60) 08/09/20 05:23 Est GFR (MDRD) Non-Af > 60 (>60) 08/09/20 05:23 Glucose 91 mg/dL (65-99) 08/09/20 05:23 POC Glucose (mg/dL) 95 mg/dL (65-99) 08/09/20 11:04 Calcium 9.2 mg/dL (8.5-10.1) 08/09/20 05:23 Corrected Calcium 9.9 mg/dL (8.5-10.1) 08/09/20 05:23 Total Bilirubin 0.10 mg/dL (0.2-1.0) L 08/09/20 05:23 AST 15 Units/L (15-37) 08/09/20 05:23 ALT 19 Units/L (12-78) 08/09/20 05:23 Alkaline Phosphatase 71 Units/L (46-116) 08/09/20 05:23 Troponin I < 0.02 ng/mL (0-1.5) 08/07/20 09:34 Total Protein 7.8 g/dL (6.4-8.2) 08/09/20 05:23 Albumin 3.1 g/dL (3.4-5.0) L 08/09/20 05:23 Globulin 4.7 g/dL (2.5-4.5) H 08/09/20 05:23 Albumin/Globulin Ratio 0.7 Ratio (1.1-2.1) L 08/09/20 05:23 Specimen Type Catherized urine 08/07/20 10:09 Urine Color Yellow (YELLOW) 08/07/20 10:09 Urine Appearance Hazy (CLEAR) 08/07/20 10:09 Urine pH 6.0 (5.0 - 8.0) 08/07/20 10:09 Ur Specific [place] 1.015 (1.000-1.030) 08/07/20 10:09 Urine Protein 2+ (NEGATIVE) 08/07/20 10:09 Urine Glucose (UA) Negative (NEGATIVE) 08/07/20 10:09 Urine Ketones Negative (NEGATIVE) 08/07/20 10:09 Urine Occult Blood 3+ (NEGATIVE) 08/07/20 10:09 Urine Nitrite Negative (NEGATIVE) 08/07/20 10:09 Urine Bilirubin Negative (NEGATIVE) 08/07/20 10:09 Urine Urobilinogen Normal (NORMAL) 08/07/20 10:09 Ur Leukocyte Esterase 3+ (NEGATIVE) 08/07/20 10:09 Urine RBC 3-5 /HPF (0-3) A 08/07/20 10:09 Urine WBC Tntc /HPF (0-5) A 08/07/20 10:09 Ur Squamous Epith Cells Few /HPF (NEGATIVE) 08/07/20 10:09 Urine Bacteria 3+ /HPF (NEGATIVE) 08/07/20 10:09 Ur Culture Indicated? Yes/culture set up 08/07/20 10:09 Urine Opiates Screen Negative (NEG=<300) 08/07/20 10:09 Urine Methadone Screen Negative (NEG=<300) 08/07/20 10:09 Ur Barbiturates Screen Negative (NEG=<200) 08/07/20 10:09 Ur Phencyclidine Scrn Negative (NEG=<25) 08/07/20 10:09 Ur Amphetamines Screen Negative (NEG=<1000) 08/07/20 10:09 U Benzodiazepines Scrn Negative (NEG=<200) 08/07/20 10:09 Urine Cocaine Screen Negative (NEG=<300) 08/07/20 10:09 U Marijuana (THC) Screen Negative (NEG=<50) 08/07/20 10:09 Ethyl Alcohol mg/dL < 3 mg/dL (0-19.9) 08/07/20 09:34 SARS CoV-2 RNA Rapid LOLITA Negative (NEGATIVE) 08/07/20 10:45 - Plan (1) UTI (urinary tract infection) Status: Acute Qualifiers: Urinary tract infection type: acute cystitis Hematuria presence: without hematuria Qualified Code(s): N30.00 - Acute cystitis without hematuria Plan: NORMAL SALINE AT 50 ML/HR, INVANZ 1G IV DAILY, HUMULIN R SLIDING SCALE, ELIQUIS 2.5MG PO BID, RESUME HOME MEDICATIONS (2) Right sided weakness Status: Acute (3) Altered mental state Status: Acute Qualifiers: Altered mental status type: transient alteration of awareness Qualified Code(s): R40.4 - Transient alteration of awareness
[2020-08-09] MEDS: NS 1000 ML 1,000 ML IV SCH (17:00)
[2020-08-09] MEDS: SYNTHROID 88 mcg TAB PO SCH (17:36)
[2020-08-09] MEDS: CRESTOR TAB 10 MG PO SCH (20:52)
[2020-08-09] MEDS: ZyrTEC TAB 10 MG PO SCH (20:53)
[2020-08-09] MEDS: SNACK - Diabetic Appropriate PO SCH (20:56)
[2020-08-10] MEDS: NS 1000 ML 1,000 ML IV SCH (04:39)
[2020-08-10 06:37] LABS: BASOPHILS # (AUTO) 0.1 X10^3/uL (0.0-0.1); BASOPHILS % (AUTO) 1.1 % (0.2-1.0); EOSINOPHILS # (AUTO) 0.5 x10^3/uL (0.0-0.2); EOSINOPHILS % (AUTO) 6.4 % (0.9-2.9); HEMATOCRIT 26.5 % (36.0-47.0); HEMOGLOBIN 8.8 g/dL (12.0-16.0); LYMPHOCYTES % (AUTO) 27.4 % (21.0-51.0); MEAN CORPUSCULAR HGB CONC 33.2 g/dL (33.0-35.0); MEAN CORPUSCULAR VOLUME 81.5 fL (80.0-100.0); MEAN PLATELET VOLUME 6.8 fL (7.4-11.0); MONOCYTES # (AUTO) 0.7 x10^3/uL (0.3-0.8); MONOCYTES % (AUTO) 9.7 % (0.0-13.0); NEUTROPHILS # (AUTO) 4.1 x10^3/uL (2.2-4.8); NEUTROPHILS % (AUTO) 55.4 % (42.0-75.0); PLATELET COUNT 390 X10^3/uL (150.0-450.0); RED BLOOD COUNT 3.26 X10^6/uL (3.5-5.4); RED CELL DISTRIBUTION WIDTH 22.9 % (11.6-16.5); WHITE BLOOD COUNT 7.4 X10^3/uL (3.6-10.0)
[2020-08-10 06:51] LABS: ALANINE AMINOTRANSFERASE 16 Units/L (12-78); ALBUMIN 2.8 g/dL (3.4-5.0); ALKALINE PHOSPHATASE 69 Units/L (46-116); ASPARTATE AMINO TRANSFERASE 13 Units/L (15-37); BLOOD UREA NITROGEN 13 mg/dL (7-18); CALCIUM 8.8 mg/dL (8.5-10.1); CARBON DIOXIDE 27.9 mmol/L (21-32); CHLORIDE 105 mmol/L (98-107); COR CA(FOR HYPOALB) 9.8 mg/dL (8.5-10.1); CREATININE 0.87 mg/dL (0.55-1.02); SODIUM 141 mmol/L (136-145); TOTAL PROTEIN 7.3 g/dL (6.4-8.2); eGFR NON BLACK RACES > 60 (>60)
[2020-08-10 07:10] LABS: ANISOCYTOSIS 2+; PLATELET MORPHOLOGY COMMENT NORMAL (NORMAL)
[2020-08-10] MEDS ORDERED: GLUCOPHAGE ONE (07:42)
[2020-08-10] MEDS: DIABETA PO SCH (07:46)
[2020-08-10] MEDS: GLUCOPHAGE PO SCH (07:46)
[2020-08-10 08:23] VITALS: BP 134/61
[2020-08-10] MEDS: TAB-A-VITE PO SCH (08:43)
[2020-08-10] MEDS: ASPIRIN PO SCH (08:43)
[2020-08-10] MEDS: NexIUM PO SCH (08:44)
[2020-08-10] MEDS: ELIQUIS PO SCH (08:44)
[2020-08-10] MEDS: MACROBID CAP 100 MG EXT REL PO SCH (08:44)
[2020-08-10] MEDS: EFFEXOR XR 75 MG CAP 24-HR PO SCH (08:44)
[2020-08-10] MEDS: SINGULAIR TAB 10 MG PO SCH (08:45)
[2020-08-10] MEDS: INVANZ INJ 1 GM VIAL 1 GM in NS 100 ML IV + SPIKE MINIBAG* 100 ML IV SCH (08:45)
[2020-08-10] MEDS: NORVASC TAB 5 MG PO SCH (08:45)
== END 2020-08-10 11:10 | disposition home or self-care (01) ==
LOC: ER 09:25 → OBS 09:25 → MED/SURG 11:01
PROVIDERS: ADMIT Internal Medicine; ATTEND Internal Medicine